=== PATIENT | female | born 1980 | race Caucasian/White ===

== ENCOUNTER 2019-03-07 16:48 | Outpatient (REF) | payer MEDICAID, SELFPAY | END 2019-03-07 17:08 | LOC: NCHCN 16:48 | PROVIDERS: PCP Internal Medicine; Visit Provider Nurse Practitioner Family | DX: R30.0 Dysuria (principal) | CPT/HCPCS: 87077; 87086; 87186 ==

== ENCOUNTER 2019-05-22 16:32 | Outpatient (REF) | payer MEDICAID, SELFPAY | END 2019-05-22 16:52 | LOC: NCHCN 16:32 | PROVIDERS: PCP Internal Medicine; Visit Provider Nurse Practitioner Family | DX: R30.0 Dysuria (principal) | CPT/HCPCS: 87077; 87086; 87186 ==

== ENCOUNTER 2019-05-25 21:37 | Emergency (ER) | payer MEDICAID, SELFPAY ==
[2019-05-25 21:47] VITALS: BP 126/80; PULSE 99; RESP 16; TEMP 36.2; O2SAT 97
[2019-05-25 22:01] LABS: Bilirubin Negative (Negative); Blood Trace-intact (Negative); Clarity Sl Cloudy (Clear); Glucose Negative (Negative); Ketones Trace mg/dL (Negative); Leukocyte Esterase Negative (Negative); Nitrite Negative (Negative); pH 5.5 (5-8)
[2019-05-25 22:17] LABS: Bacteria Many HPF (Negative); C & S Indicated? No/Sq. Contamination; Crystals Negative HPF (Negative); Epithelial Cells Many HPF (Negative); Mucus Negative (Negative); RBC 0-2 (0-2)
[2019-05-25] MEDS: Normal Saline Flush 10 ML SYR IVP (22:20)
[2019-05-25] MEDS: Ondansetron 4 MG/2 ML VIAL IVP (22:30)
[2019-05-25] MEDS: Normal Saline 1,000 ML 1000 ML IV (22:30)
[2019-05-25] MEDS: Ketorolac 15 MG/ML VIAL IVP (22:30)
[2019-05-25 22:36] LABS: Abs Immature Grans 0.02 k/cumm (0.0-0.09); Absolute Basophil Count 0.02 k/cumm (0.0-0.2); Absolute Eosinophil Count 0.46 k/cumm (0.0-0.7); Absolute Lymphocyte Count 0.89 k/cumm (1.2-3.4); Absolute Monocyte Count 0.62 k/cumm (0.11-0.7); Basophils % 0.2; Eosinophils % 4.6; HCT 37.4 % (36.0-46.0); HGB 12.7 g/dL (12.0-15.5); Immature Grans % 0.2; Lymphocytes % 8.9; Mean Corpuscular Hemoglobin 30.7 pg (27.0-33.0); Mean Corpuscular Volume 90.3 fL (80-95); Mean Platelet Volume 9.6 fL (8.0-11.0); Monocytes % 6.2; Neutrophils % 79.9; Platelet Count 244 x1000/uL (130-400); RBC 4.14 m/cumm (4.00-5.20); RBC Distribution Width 12.7 % (11.7-14.6); White Blood Cell Count 10.01 k/cumm (4.4-10.8)
--- NOTE | 2019-05-25 22:37 | ED.GENADUL_ITS ---
Discharge Plan Disposition Patient Disposition: HOME Condition: Good Discharge Details Chief Complaint: Urinary Clinical Impression: Pyelonephritis Primary Care Provider: Earl Nash ED Provider: Obie Abraham [place] Meds and New Rx's Prescriptions: New ciprofloxacin HCl 500 mg tablet 500 mg PO BID Qty: 20 RF: 0 ondansetron 4 mg tablet,disintegrating 4 mg PO Q8H PRN (Reason: nausea and vomiting) Qty: 10 RF: 0 Continued albuterol sulfate [ProAir HFA] 8.5 GM HFA aerosol inhaler 8.5 gm Inhalation PRN PRNRF: 0 gabapentin 100 MG capsule 100 mg PO DAILY RF: 0 acetaminophen [Mapap Extra Strength] 500 MG tablet 1,000 mg PO Q8H PRN PRNQty: 0 RF: 0 loratadine-pseudoephedrine [Claritin-D 24 Hour] 1 EACH tablet extended release 24 hr 1 ea PO PRN PRNRF: 0 ibuprofen 600 mg Tablet 600 mg PO Q6H PRNRF: 0 Discontinued nitrofurantoin monohyd/m-cryst 100 mg Capsule 100 mg PO BID RF: 0 Discharge Instructions Instructions: Ciprofloxacin (By mouth), Kidney Infection (ED) Additional Instructions: Please discontinue your Macrobid and start ciprofloxacin. Use Tylenol or Motrin as needed for pain and fever. Use ondansetron for nausea. Stay hydrated. Follow-up with primary care next week if not feeling better. Return to ED if you continue to have persistent high fever, worsening back pain, altered mental status, persistent vomiting, abdominal pain, other concerns. Referrals: Earl Nash MD [Primary Care Provider] - Medical Decision Making Urine culture from her PCPs office is growing E. coli which is pansensitive except to amoxicillin. She should be responding to the Macrobid but appears not to be. She is reporting fevers, back pain, continued urinary symptoms. The only thing that is cleared up is the hematuria. We will place an IV and get laboratory studies. Urine test is negative. Urinalysis sent. CT scan of the abdomen pelvis to evaluate for stone or obstruction ordered. Patient given Toradol, Zofran, ceftriaxone IV. Laboratory studies are okay. White count is normal. Kidney function is normal. Urinalysis tonight is contaminated but given her symptoms and history will not bothered to repeat. CT scan, noncontrast, shows evidence of bilateral reba nephric stranding likely consistent with infection. Patient does feel somewhat better after Toradol, fluids, Zofran. She has received a gram of ceftriaxone. I will discontinue her Macrobid and start her on Cipro. We discussed side effects including Achilles tendon rupture. She will use Tylenol and Motrin for pain and fever. She will receive prescription for Zofran if needed for nausea. Follow-up with primary care next week if not doing better. Return to ED over the weekend if persistent high fevers, worsening pain, vomiting, other concerns or problems. Lab Data Lab results reviewed: Yes I reviewed the patient's lab results. HPI General Mode of arrival: ambulatory . Date/Time Provider Initiated Documentation: 05/25/19 21:40 . Limitations to Documentation: no limitations . Information obtained by: patient . HPI Narrative: Patient presents to ED with continued urinary symptoms and now fevers and back pain. Patient reports developing urinary symptoms last week. She started to have hematuria on Wednesday. She was seen by primary care and started on Macrobid. She is not feeling better. The hematuria has cleaned up but she continues to have symptoms and now has back pain and fever which she did not have previously. She has some nausea but no vomiting. She has suprapubic discomfort. She has bilateral lower back pain. Related Data Home Medications Medication Instructions Recorded Confirmed albuterol sulfate [ProAir HFA] 8.5 gm INHALATION PRN PRN 05/09/17 05/25/19 acetaminophen [Mapap Extra 1,000 mg PO Q8H PRN PRN #0 05/11/17 05/25/19 Strength] gabapentin 100 mg PO DAILY cap 05/11/17 05/25/19 loratadine-pseudoephedrine 1 ea PO PRN PRN 04/14/18 05/25/19 [Claritin-D 24 Hour] ibuprofen 600 mg PO Q6H PRN 05/25/19 05/25/19 ciprofloxacin HCl 500 mg PO BID #20 tab 05/26/19 ondansetron 4 mg PO Q8H PRN #10 tab 05/26/19 Previous Rx's Medication Instructions Recorded acetaminophen [Mapap Extra 1,000 mg PO Q8H PRN PRN #0 05/11/17 Strength] gabapentin 100 mg PO DAILY cap 05/11/17 ciprofloxacin HCl 500 mg PO BID #20 tab 05/26/19 ondansetron 4 mg PO Q8H PRN #10 tab 05/26/19 Allergies Allergy/AdvReac Type Severity Reaction Status Date / Time Sulfa (Sulfonamide Allergy Intermediate RASH Unverified 05/25/19 21:49 Antibiotics) General Stated Complaint: Urinary JOSE: 3 Review of Systems Review of Systems 07/17 Review of Systems completed and is negative except as stated above in HPI (Systems reviewed: Const, Eyes, ENT, Resp, CV, GI, , MSK, Skin, Neuro) PFSH Medical History Anxiety Depression Migraine Pneumonia Surgical History section Ligation of fallopian tube (09/16/17) Social History Smoking/Tobacco Use Status: Former Tobacco Use Drug use: Occasionally Do you feel safe in your relationship?: Yes Exam Narrative Exam Narrative: Vitals: Afebrile here. Mild tachycardia, otherwise normal vitals. Const: Obese female in NAD. HEENT: NC/AT. Normal facial exam. Eyes: Normal conjunctiva and sclera. Neck: Supple. Trachea midline. Lungs: Normal respiratory effort. Lungs are clear. Cor: RRR without murmur/gallop. Good radial pulses. GI: Soft and non-distended. No guarding or rebound. Mild tender in the suprapubic area. Back: Bilateral CVAT. Neuro: A+O x 3. CN grossly in tact. Good strength and no focal deficit. Ext: No C/C/E. No deformity or tenderness. Skin: Warm and dry without rash. Course Vital Signs Temperature 97.2 F L 05/25/19 21:47 Pulse 99 H 05/25/19 21:47 Respiratory Rate 16 05/25/19 21:47 Blood Pressure 126/80 05/25/19 21:47 Pulse Oximetry 97 05/25/19 21:47 Temperature 97.2 F L 05/25/19 21:47 Temperature Source Skin 05/25/19 21:47 Pulse 99 H 05/25/19 21:47 Respiratory Rate 16 05/25/19 21:47 Blood Pressure 126/80 05/25/19 21:47 Blood Pressure Position Sitting 05/25/19 21:47 Pulse Oximetry 97 05/25/19 21:47 Oxygen Delivery Method Room Air 05/25/19 21:47 Oxygen Flow Rate 0 05/25/19 21:47 Pain Level 7 05/25/19 21:47 Lab/Test Results Lab/Test Results: Laboratory Tests Range/Units 05/25/19 21:53 Urine Color (Yellow) Yellow Urine Clarity (Clear) Sl cloudy Urine pH (5-8) 5.5 Ur Specific [place] (1.005-1.025) 1.020 Urine Protein (Negative) mg/dL 30 H Urine Ketones (Negative) mg/dL Trace H Urine Blood (Negative) Trace-intact H Urine Nitrite (Negative) Negative Urine Bilirubin (Negative) Negative Urine Urobilinogen (Up TO 0.2) EU/dL 1.0 H Ur Leukocyte Esterase (Negative) Negative Urine RBC (0-2) 0-2 Urine WBC (0-5) HPF 5-10 Ur Epithelial Cells (Negative) HPF Many Urine Crystals (Negative) HPF Negative Urine Bacteria (Negative) HPF Many Urine Mucus (Negative) Negative Ur Culture Indicated? No/sq. contamination Urine Glucose (Negative) mg/dL Negative
[2019-05-25 22:45] LABS: Anion Gap 10.5 mmol/L (3-11); BUN 12 mg/dL (7-18); CO2 26.5 mmol/L (21.0-32.0); Calcium 8.4 mg/dL (8.5-10.1); Chloride 106 mmol/L (98-107); Glucose 154 mg/dL (70-100); Potassium 3.5 mmol/L (3.5-5.1); Sodium 143 mmol/L (136-145)
[2019-05-25] MEDS: cefTRIAXone 1 GM/50 ML BAG IVPB (23:12)
--- NOTE | 2019-05-25 23:34 | DI.CT_ITS ---
SYMPTOM/DIAGNOSIS: FLANK PAIN, HEMATURIA RENAL COLIC CT: Routine examination. No priors. The visualized lung bases are clear. Lack of IV contrast does limit evaluation of the abdominal and pelvic organs. The unenhanced liver and spleen are unremarkable as are the gallbladder, pancreas and adrenal glands. The kidneys show no evidence of nephrolithiasis, ureterolithiasis or obstructive uropathy. There is mild stranding in the perinephric soft tissues bilaterally. The urinary bladder is intact. The reproductive organs are unremarkable. The bowel shows no evidence of obstruction or inflammation. There is a normal appendix present. The aorta is of normal caliber. No significant abdominal or pelvic adenopathy, ascites or pneumoperitoneum is seen. No acute osseous abnormality is identified. IMPRESSION: 1. No evidence of obstructive uropathy or nephrolithiasis. 2. Stranding in the perinephric soft tissues bilaterally. This may be chronic but the possibility of an inflammatory or infectious process cannot be excluded.
--- NOTE | 2019-05-26 00:03 | DI.VRAD_ITS ---
EXAM: CT Abdomen and Pelvis Without Contrast EXAM DATE/TIME: 05/25/2019 10:19 PM CLINICAL HISTORY: 38 years old, female; Abdominal pain; Other: Bilateral flank pain; Prior surgery; Surgery date: 6+ months; Surgery type: 2 cesarian, partial hysterectomy TECHNIQUE: Imaging protocol: Computed tomography images of the abdomen and pelvis without contrast. Radiation optimization: All CT scans at this facility use at least one of these dose optimization techniques: automated exposure control; mA and/or kV adjustment per patient size (includes targeted exams where dose is matched to clinical indication); or iterative reconstruction. COMPARISON: No relevant prior studies available. FINDINGS: Lungs: There is minimal bibasilar atelectasis. Mediastinum: Hiatal hernia. Liver: There is a diffuse decrease in hepatic parenchymal density, consistent with mild fatty infiltration. Gallbladder and bile ducts: Normal. No calcified stones. No ductal dilation. Pancreas: Normal. No ductal dilation. Spleen: Normal. No splenomegaly. Adrenals: Normal. No mass. Kidneys and ureters: There is mild perinephric stranding bilaterally. No hydronephrosis. Stomach and bowel: Normal. No obstruction. No mucosal thickening. Appendix: No evidence of appendicitis. Intraperitoneal space: Normal. No free air. No significant fluid collection. Vasculature: Normal. No abdominal aortic aneurysm. Lymph nodes: Normal. No enlarged lymph nodes. Bladder: Unremarkable as visualized. Reproductive: Retroflexed uterus. Bones/joints: No acute fracture. No dislocation. Soft tissues: Unremarkable. IMPRESSION: 1. Mild perinephric fat stranding could be due to scarring, third spacing of fluid, inflammatory process or infection. 2. Fatty liver. 3. Hiatal hernia. Dictated and Authenticated by: Alexis Patiño MD. Ordering:PORTIA Ragland MD
[2019-05-26 00:25] VITALS: BP 104/72; PULSE 94; RESP 18; TEMP 37.6; O2SAT 97
[2019-05-26] MEDS: Ciprofloxacin 500 MG TAB PO (00:30)
== END 2019-05-26 00:30 | disposition home or self-care (01) ==
PROVIDERS: Emergency Provider Emergency Medicine; PCP Internal Medicine
DX: N10 Acute pyelonephritis (principal)
CPT/HCPCS: 36415; 80048; 96361; 96365; 96375; 99284; 74176; 81003; 81015; 85025; J0696; J1885; J2405

== ENCOUNTER 2019-06-08 18:14 | Outpatient (REF) | payer MEDICAID, SELFPAY ==
--- NOTE | 2019-06-08 15:00 | PAPFT_PTH ---
PATIENT: Junie Denny LOC: [facility] U#:[id number] AGE/SX: 38/F ROOM: RE06/08/[address]: Emperatriz Motley : 1980 BED: DIS: 06/08/2019 SPEC #: [id number] RECD: 06/09/19 12:59 STATUS: RICHELLE REQ #: [id number] JUNIOR: 06/08/19 15:[address]: Emperatriz Motley DEPT: [facility] Cytology RECD BY: Christine Pretty ENTERED: 06/09/19 13:00 SP TYPE: PAPFT OTHR DR: Earl Nash Tissues: 1 - CX/ENDOCX FOR PAP SMEARS Procedures: PAP THIN PREP/[facility] Screening HPV DNA PROBE Comments: [id number]
== END 2019-06-08 18:34 ==
LOC: NCHCN 18:14
PROVIDERS: PCP Internal Medicine; Visit Provider Family Medicine
DX: Z12.4 Encounter for screening for malignant neoplasm of cervix (principal); Z11.51 Encounter for screening for human papillomavirus (HPV)
CPT/HCPCS: 88142; 87624

== ENCOUNTER 2019-06-15 00:56 | Outpatient (CLI) | payer MEDICAID, SELFPAY ==
--- NOTE | 2019-06-15 10:33 | DI.CT_ITS ---
SYMPTOM/DIAGNOSIS: MULTIPLE PULMONARY NODULES R91.[address], NONCONTRAST: 06/15 CT examination of the chest was performed without contrast administration to evaluate multiple intrapulmonary nodules seen on previous examinations including 02/18/18. On today's examination the largest nodule, 6 x 3 mm in diameter right middle lobe nodule, is unchanged in size and appearance. Multiple other 3 mm or smaller nodules of the right lung are unchanged in size and there is a new 3-4 mm in diameter nodule of the right lung base which is noncalcified. No pulmonary consolidation. No mediastinal mass or adenopathy. No tracheobronchial tree abnormality. No pleural effusion. Images obtained through the upper abdomen show unremarkable appearance of visualized portions of liver, spleen, pancreas, adrenals and kidneys. CONCLUSION: Predominantly stable multiple pulmonary nodules, the largest nodule is 6 mm in diameter and unchanged in the right middle lobe. New 4 mm in diameter intrapulmonary nodule. Follow up CT recommended in 6 months.
== END 2019-06-15 01:16 ==
PROVIDERS: PCP Internal Medicine; Visit Provider Family Medicine
DX: R91.8 Other nonspecific abnormal finding of lung field (principal)
CPT/HCPCS: 71250

== ENCOUNTER 2020-02-12 01:15 | Outpatient (CLI) | payer MEDICAID, SELFPAY ==
--- NOTE | 2020-02-12 14:05 | DI.CT_ITS ---
EXAM: CT CHEST WO CLINICAL HISTORY: F/U PULMONARY NODULES, R91.8, TECHNIQUE: COMPARISON: CT CT CHEST WO from 06/15/2019 FINDINGS: Noncontrast chest CT was performed. Recent chest CT June 2019 showed multiple noncalcified intr apulmonary nodules, the largest in the right middle lobe measuring about 6 x 3 millimeters in diamete r. This right middle lobe nodule is unchanged in size on the current examination. No new intrapulmo nary nodule identified. No pleural effusion. No mediastinal or hilar adenopathy. Tracheobronchial tree appears intact. No pleural effusion. Images obtained through the upper abdomen show unremarkable appearance of visualized portions of the liver, spleen, and pancreas. Adrenals appear normal bilaterally. IMPRESSION: Stable noncalcified pulmonary nodules since June 2019. Follow-up non-contrast chest CT recommen ded in 12 months.
== END 2020-02-12 01:35 ==
PROVIDERS: PCP Internal Medicine; Visit Provider Internal Medicine
DX: R91.8 Other nonspecific abnormal finding of lung field (principal)
CPT/HCPCS: 71250

== ENCOUNTER 2020-07-19 15:45 | Outpatient (REF) | payer MEDICAID, SELFPAY ==
[2020-07-19 20:59] LABS: Abs Immature Grans 0.02 10^3/uL (0.0-0.06); Absolute Basophil Count 0.06 10^3/uL (0.0-0.2); Absolute Lymphocyte Count 2.42 10^3/uL (1.2-3.4); Absolute Monocyte Count 0.55 10^3/uL (0.1-0.8); Basophils % 0.6; HCT 38.6 % (36.0-46.0); HGB 13.1 g/dL (11.2-15.7); Immature Grans % 0.2; Lymphocytes % 24.3; MCH 29.8 pg (27.0-33.0); MCHC 33.9 % (32.0-36.0); MCV 87.9 fL (80-95); Monocytes % 5.5; Neutrophils % 64.4; Nucleated RBC 0 %; Platelet Count 316 10^3/uL (130-400); RBC 4.39 10^6/uL (3.93-5.22); RDW 12.5 % (11.7-14.6); WBC 9.95 10^3/uL (4.4-10.8)
[2020-07-19 21:34] LABS: ALT 20 U/L (14-59); AST 9 U/L (15-37); Alkaline Phosphatase 80 U/L (46-116); Anion Gap 10.7 mmol/L (3-11); BUN 13 mg/dL (7-18); Bilirubin, Total 0.3 mg/dL (0.2-1.0); CO2 25.3 mmol/L (21.0-32.0); CREATININE 0.94 mg/dL (0.55-1.02); Calcium 9.3 mg/dL (8.5-10.1); Calculated LDL 137 mg/dL (<100); Chloride 104 mmol/L (98-107); Cholesterol 219 mg/dL (<200); Glucose 120 mg/dL (74-106); HDL Cholesterol 38 mg/dL (40-60); Sodium 140 mmol/L (136-145); Total Protein 7.3 g/dL (6.4-8.2); Triglyceride 220 mg/dL (<150)
[2020-07-19 21:38] LABS: Hemoglobin A1C 5.6 % (<5.7)
== END 2020-07-19 16:05 ==
LOC: NCHCN 15:45
PROVIDERS: PCP Internal Medicine; Visit Provider Family Medicine
DX: E78.00 Pure hypercholesterolemia, unspecified (principal); K21.9 Gastro-esophageal reflux disease without esophagitis; R53.83 Other fatigue
CPT/HCPCS: 80053; 80061; 83036; 85025

== ENCOUNTER 2020-08-19 16:53 | Outpatient (REF) | payer MEDICAID, SELFPAY ==
[2020-08-22 14:48] LABS: Patient Race White; SARS-CoV-2 RNA Undetected (Undetected); SARS-CoV-2 Specimen Source Nasal
== END 2020-08-19 17:13 ==
LOC: NCHCN 16:53
PROVIDERS: PCP Internal Medicine; Visit Provider Family Medicine
DX: Z20.828 Contact with and (suspected) exposure to other viral communicable diseases (principal)
CPT/HCPCS: U0003

== ENCOUNTER 2020-12-26 16:01 | Outpatient (REF) | payer MEDICAID, SELFPAY ==
[2020-12-27 14:49] LABS: COVID-19 RT-PCR UVMMC Result Negative (Negative)
== END 2020-12-26 16:02 | disposition home or self-care (01) ==
LOC: NCHCN 16:01
PROVIDERS: PCP Internal Medicine; Visit Provider Family Medicine
DX: Z20.822 Contact with and (suspected) exposure to COVID-19 (principal)
CPT/HCPCS: U0003

== ENCOUNTER 2021-02-19 09:07 | Outpatient (CLI) | payer MEDICAID, SELFPAY ==
[2021-02-20 15:56] LABS: COVID-19 RT-PCR UVMMC Result Negative (Negative)
== END 2021-02-19 09:08 | disposition home or self-care (01) ==
PROVIDERS: PCP Internal Medicine; Visit Provider Family Medicine
DX: Z20.822 Contact with and (suspected) exposure to COVID-19 (principal)
CPT/HCPCS: U0003

== ENCOUNTER 2021-07-31 01:00 | Outpatient (CLI) | payer MEDICAID, SELFPAY ==
--- NOTE | 2021-07-31 | DI.CT_ITS ---
Exam(s) CT CHEST WO EXAM: CT CHEST WO CLINICAL HISTORY: F/U MULTIPLE PULMONARY NODULES, R91.8. TECHNIQUE: Multi planar reconstructions were performed. CONTRAST MATERIAL: None COMPARISON: CT CT CHEST WO from 02/12/2020 FINDINGS: CHEST: LUNGS: A small noncalcified 3 millimeter nodule in the right upper lobe is unchanged. A pleural base d nodule measuring 5 millimeters in the lateral segment of the right middle lobe is also unchanged. There are no new right lung nodules. No pleural effusion. In the opposite-left lung there are no new significant findings. Some scarring in the anterior segme nt of the left upper lobe is unchanged. No pleural effusion MEDIASTINUM: There is no obvious hilar nor mediastinal adenopathy. Visualized thyroid unremarkable.No obvious axillary adenopathy CARDIAC: Heart size is normal. There is no pericardial effusion.Caliber of the thoracic aorta is wit hin normal limits. VISUALIZED UPPER ABDOMEN:No adrenal masses. OSSEOUS: No significant osseous lesions.. IMPRESSION: 1. Continued stable appearance of the previously described benign-appearing right lung nodules. 2. There are no new nodules nor pleural effusions. 3. There is no intrathoracic adenopathy. RADIATION DOSE DELIVERED: 658.71mGy.cm Total DLP DATA REPOSITORY: All CT scans at this facility are submitted to the National Radiology Data Registry (NRDR) Dose Index Registry (DIR) with the [employer] (ACR). RADIATION OPTIMIZATION: All CT scans at this facility use at least one of these dose optimization te chniques: automated exposure control; mA and/or kV adjustment per patient size (includes targeted exa ms where dose is matched to clinical indication); or iterative reconstruction.
== END 2021-07-31 01:20 ==
PROVIDERS: PCP Internal Medicine; Visit Provider Family Medicine
DX: R91.8 Other nonspecific abnormal finding of lung field (principal)
CPT/HCPCS: 71250

== ENCOUNTER 2021-12-11 02:43 | Outpatient (CLI) | payer MEDICAID, SELFPAY ==
[2021-12-11 10:46] LABS: ALT 25 U/L (14-59); AST 13 U/L (15-37); Albumin 3.8 g/dL (3.4-5.0); Alkaline Phosphatase 67 U/L (46-116); Anion Gap 9.4 mmol/L (3-11); BUN 15 mg/dL (7-18); Bilirubin, Total 0.6 mg/dL (0.2-1.0); CO2 26.6 mmol/L (21.0-32.0); CREATININE 0.9 mg/dL (0.55-1.02); Calcium 8.8 mg/dL (8.5-10.1); Calculated LDL 142 mg/dL (<100); Chloride 102 mmol/L (98-107); Cholesterol 224 mg/dL (<200); Glucose 110 mg/dL (74-106); HDL Cholesterol 56 mg/dL (40-60); Potassium 4.5 mmol/L (3.5-5.1); Sodium 138 mmol/L (136-145); Total Protein 6.9 g/dL (6.4-8.2); Triglyceride 132 mg/dL (<150)
[2021-12-11 11:12] LABS: Vitamin D 25 Total 40.5 ng/mL (30-100)
== END 2021-12-11 02:44 | disposition home or self-care (01) ==
LOC: LBO 02:43
PROVIDERS: PCP Internal Medicine; Visit Provider Family Medicine
DX: E78.00 Pure hypercholesterolemia, unspecified (principal); R53.83 Other fatigue; K21.9 Gastro-esophageal reflux disease without esophagitis; E55.9 Vitamin D deficiency, unspecified
CPT/HCPCS: 36415; 80053; 80061; 82306

== ENCOUNTER 2023-07-28 15:41 | Outpatient (REF) | payer MEDICAID, SELFPAY | END 2023-07-28 15:42 | disposition home or self-care (01) | LOC: NCHCN 15:41 | PROVIDERS: PCP Internal Medicine; Visit Provider Nurse Practitioner Family | DX: N89.8 Other specified noninflammatory disorders of vagina (principal) | CPT/HCPCS: 87480; 87510; 87660 ==

== ENCOUNTER → 2023-08-16 00:18 | Outpatient (CLI) | payer MEDICAID, SELFPAY ==
--- NOTE | 2023-08-16 | DI.CT_ITS ---
Exam(s) CT CHEST WO EXAM: CT CHEST WO CLINICAL HISTORY: MULTIPLE PULMONARY NODULES, R91.8 TECHNIQUE: Imaging Protocol: Axial computed tomography images with coronal and sagittal reformatted images were created and reviewed CONTRAST MATERIAL: Intravenous: Omnipaque 350 Contrast volume:structured data ml. COMPARISON: CT CHEST FOR PULMONARY EMBOLUS from 05/09/2017 CT CHEST WITH CONTRAST from 08/25/[address] CHEST WO from 07/31/2021 FINDINGS: Pulmonary parenchyma: No consolidation. No dominant measurable mass. Stable tiny bilateral pulmonary nodules. Two largest nodules are in the right middle lobe, largest measuring 6 x 3 millimeters reba pherally. Other nodules measure 3 millimeters or less. No new or suspicious findings. Tracheobronchial tree: No bronchiectasis or mucous plugging. Mediastinum and Kimberly: No dominant adenopathy or fluid collection. Pleura: No effusion. No pneumothorax. Heart: The heart is not dilated. No coronary artery calcifications are seen. Aorta: Thoracic aorta non-dilated. Mild atherosclerotic changes. Upper abdomen: Unremarkable. Bones: Degenerative changes in the spine. Soft tissues: Unremarkable. IMPRESSION: Stable tiny bilateral pulmonary nodules. If the patient is at high risk for lung cancer follow-up lo w-dose chest CT could be considered in 1 year. Otherwise no follow-up recommended. RADIATION DOSE DELIVERED: Total DLP DATA REPOSITORY: All CT scans at this facility are submitted to the National Radiology Data Registry (NRDR) Dose Index Registry (DIR) with the [employer] (ACR). RADIATION OPTIMIZATION: All CT scans at this facility use at least one of these dose optimization te chniques: automated exposure control; mA and/or kV adjustment per patient size (includes targeted exa ms where dose is matched to clinical indication); or iterative reconstruction.
== END ==
PROVIDERS: PCP Internal Medicine; Visit Provider Family Medicine
DX: R91.8 Other nonspecific abnormal finding of lung field (principal)
CPT/HCPCS: 71250

== ENCOUNTER 2023-08-16 13:15 | Outpatient (REF) | payer MEDICAID, SELFPAY | END 2023-08-16 13:16 | disposition home or self-care (01) | LOC: NCHCN 13:15 | PROVIDERS: PCP Internal Medicine; Visit Provider Family Medicine | DX: R32 Unspecified urinary incontinence (principal); R82.998 Other abnormal findings in urine | CPT/HCPCS: 87086 ==

== ENCOUNTER 2023-08-23 18:03 | Outpatient (REF) | payer MEDICAID, SELFPAY ==
[2023-08-23 21:58] LABS: ALT 20 U/L (14-59); AST 11 U/L (15-37); Albumin 3.9 g/dL (3.4-5.0); Alkaline Phosphatase 67 U/L (46-116); BUN 18 mg/dL (7-18); Bilirubin, Total 0.4 mg/dL (0.2-1.0); Calcium 9.7 mg/dL (8.5-10.1); Chloride 107 mmol/L (98-107); Estimated GFR 71.69 (mL/min/1.73m2); Glucose 93 mg/dL (74-106); Potassium 4.7 mmol/L (3.5-5.1); Sodium 137 mmol/L (136-145)
[2023-08-23 22:19] LABS: Vitamin D 25 Total 31.2 ng/mL (30-100)
== END 2023-08-23 18:04 | disposition home or self-care (01) ==
LOC: NCHCN 18:03
PROVIDERS: PCP Internal Medicine; Visit Provider Family Medicine
DX: E78.00 Pure hypercholesterolemia, unspecified (principal); E55.9 Vitamin D deficiency, unspecified
CPT/HCPCS: 80053; 82306

== ENCOUNTER 2024-10-09 21:12 | Outpatient (REF) | payer MEDICAID, SELFPAY ==
--- OUTSIDE RECORDS SUMMARY | 2024-10-09 21:13 | XMS_ITS | Referral Summary ---
Author Organization [facility] Address [address] [place] [address] Care Team Providers Care Mixed Crop And Livestock Farmer Name Role Phone Earl Nash MD Primary Care Provider [phone] Social History Tobacco Use Types Packs/Day Years Used Date Smoking Tobacco: Never Assessed Interpersonal Safety Answer Date Record ed Physically Hurt Never 05/05/2020 Verbally Threaten Not on file 05/05/2020 Comments Unknown Sex and Gender Information Value Date Recorded Sex Assigned at Not on file Legal Sex Female 18:40 EST Gender Identity Not on file Sexual Orientation Not on file Plan of Treatment Not on file Insurance * Guarantor: Junie Denny Account Type Relation to Patient Date of Phone Billing Address Personal/Family Self 1980 [phone] (Work) [address] [place] [address] [address] [place] [address] MEDICA[place] Care Teams Mixed Crop And Livestock Farmer Relationship Specialty Start Date End Date Earl Nash MD [address] [place] [address] [facility] - General 01/25/13
--- OUTSIDE RECORDS SUMMARY | 2024-10-09 21:13 | XMS_ITS | Encounter Summary ---
Author Organization [facility] Address [address] [place] [address] Care Team Providers Care Waiter/Waitress Buffet Name Role Phone Earl Nash MD Primary Care Provider [phone] Encounter Details Date Type Department Care Team (Late st Contact Info) Description 12/26/2020 Lab Requisition [facility] Pathology & Laboratory Medicine - [address] [address] Outr Resulting Lab, Provider Social History Tobacco Use Types Packs/Day Years Used Date Smoking Tobacco: Never Assessed Interpersonal Safety Answer Date Record ed Physically Hurt Never 05/05/2020 Verbally Threaten Not on file 05/05/2020 Comments Unknown Sex and Gender Information Value Date Recorded Sex Assigned at Not on file Legal Sex Female 18:40 EST Gender Identity Not on file Sexual Orientation Not on file documented as of this encounter Plan of Treatment Not on file documented as of this encounter Procedures Procedure Name Priority Date/Time Associated Diagnosis Comments ZZCOVID-19 TEST [facility] PCR Today 12/26/2020 10:40 EDT COVID-19 TESTING Routine 12/26/2020 10:4 0 EDT documented in this encounter Results * COVID-19 TEST [facility] PCR (12/26/2020 10:40 EDT) Swab ENTIRE NASOPHARYNX / Unknown 12/26/2020 10:40 EDT 12/26/2020 20:42 EDT us Provider Outr Resulting Lab MICROBIOLOGY - GENER AL ORDERABLES Final Result [facility] [address] [place] [address] * COVID-19 TESTING (12/26/2020 10:40 EDT) COVID-19 rt-PCR Result Negative Negative 12/27/2020 14:44 EDT [facility] Comment: This test has not been FDA cleared or approved. This test has been authorized by FDA under an EUA for use by authorized laboratories. This test has been authorized only for detection of nucleic acid from 2019-nCoV, not for any other viruses or pathogens. This test is only authorized for the duration of the declaration that circumstances exist justifying the authorization of emergency use of in vitro diagnostic tests for detection and/or diagnosis of 2019-nCoV under section 564(b)(1) of Act, 21 U.S.C ?? 360bbb-3(b) (1), unless the authorization is terminated or revoked sooner. Negative results do not preclude 2019-nCoV infection and should not be used as the sole basis for treatment or other patient management decisions. Negative results must be combined with clinical observations, patient history, and epidemiological information. This test was developed and its performance characteristics determined by [facility]. It has not been cleared or approved by the US Food and Drug Administration. FDA does not require this test to go through premarket FDA review. This test is used for clinical purposes. It should not be regarded as investigational or for research. This laboratory is certified under the Clinical Laboratory Improvement Amendments (CLIA) as qualified to perform high complexity clinical laboratory testing. This test is based on the [facility] COVID-19 Emergency Use Authorization (EUA) assay, with minor modification as defined by the FDA Performed on the [employer]ty[employer] 7 Pro RT-PCR System. Performing Lab [facility] Lab 12/27/2020 14:44 EDT [facility] Swab 12/26/2020 10:4 0 EDT 12/26/2020 20:42 EDT Provider Outr Resulting Lab MICROBIOLOGY - GENER AL ORDERABLES Final Result [facility] [address] [place] [address] documented in this encounter Visit Diagnoses Not on filedocumented in this encounter Care Teams Waiter/Waitress Buffet Relationship Specialty Start Date End Date Earl Nash MD [address] [place] [address] PCP - General 01/25/13 documented as of this encounter
--- OUTSIDE RECORDS SUMMARY | 2024-10-09 21:13 | XMS_ITS | Clinical Summary ---
Author Organization [facility] Address [address] [place] [address] Care Team Providers Care Shield Cleaner Name Role Phone Earl Nash MD Primary Care Provider [phone] Social History Tobacco Use Types Packs/Day Years Used Date Smoking Tobacco: Never Assessed Interpersonal Safety Answer Date Record ed Physically Hurt Never 05/05/2020 Verbally Threaten Not on file 05/05/2020 Comments Unknown Sex and Gender Information Value Date Recorded Sex Assigned at Not on file Legal Sex Female 18:40 EST Gender Identity Not on file Sexual Orientation Not on file Plan of Treatment Health Maintenance Due Date Last Done Comments Hepatitis C Screen 1980 Hepatitis B Vaccine (1 of 3 - 19+ 3-dose series) 11/17 COVID-19 Vaccine ( season) 2024 Insurance * Guarantor: Junie Denny Account Type Relation to Patient Date of Phone Billing Address Personal/Family Self 1980 [phone] (Work) [address] [place] [address] [address] [place] [address] [place] Care Teams Shield Cleaner Relationship Specialty Start Date End Date Earl Nash MD [address] [place] [id number] PCP - General 01/25/13
--- OUTSIDE RECORDS SUMMARY | 2024-10-09 21:13 | XMS_ITS | Continuity of Care Document ---
Author Organization [facility] Ambulatory Clinics Address [address] [place] [address] Care Team Providers Care Directory Clerk Name Role Phone GABRIELE WOLFE Primary Care Physician Encounter [facility] NBR [id number] Date(s): 09/20/23 - 09/20/23 [facility] Ambulatory [facility] [address] [place] [address]- Encounter Diagnosis Urinary incontinence(Discharge Diagnosis) - 09/20/23 Discharge Disposition: Home or Self Care Attending Physician: Michelle Dunaway APRN Referring Physician: GABRIELE WOLFE Allergies, Adverse Reactions, Alerts Substance Reaction Severity Status sulfa drugs Rash Unknown Active Assessment and Plan Future Appointments Medications busPIRone 10 mg oral tablet 10 mg = 1 tab, Oral, 1 tab at bedtime, 0 Refill(s) Start Date: 09/16/23 Status: Ordered gabapentin 100 mg oral capsule TAKE ONE CAPSULE BY MOUTH AT BEDTIME Start Date: 09/16/23 Status: Ordered topiramate 50 mg oral tablet TAKE ONE TABLET BY MOUTH EVERY DAY Start Date: 09/16/23 Status: Ordered traZODone 50 mg oral tablet TAKE 1 TO 3 TABLETS BY MOUTH AT BEDTIME NEEDED Start Date: 09/16/23 Status: Ordered Problem List Condition Confirmation Course Effective Dates Status Health Status Informant Allergic rhinitis Confirmed Active Anxiety Confirmed Active GERD (gastroesophageal reflux disease) Confirmed Active Left hip pain Confirmed Active Hypercholesterolemia Confirmed Active Insomnia Confirmed Active Migraine with aura Confirmed Active Obesity Confirmed Active Urinary incontinence Confirmed Active Vitamin D deficiency Confirmed Active Procedures Procedure Date Related Diagnosis Body Site Status Tubal ligation 09/15/17 Completed section 1 Comple leonidas 1X2 Results Laboratory List Name Date .Urinalysis POCT 09/20/23 Most recent to oldest [Reference Range]: 1 Method of Collect POC Clean Catch *NA* (09/20/23 10:17 AM) Specific [place], Ur POC 1.015 *NA* (09/20/23 10:17 AM) Specimen Color POC [Yellow] Yellow (09/20/23 10:17 AM) Glucose, Urine POC Negative mg/dL *NA* (09/20/23 10:17 AM) Bilirubin, Urine POC [Negative] Small *ABN* (09/20/23 10:17 AM) Ketones, Urine POC [Negative mg/dL] Trac e mg/dL *ABN* (09/20/23 10:17 AM) Blood, Urine POC [Negative] Negative (09/20/23 10:17 AM) pH, Urine POC 8.5 *NA* (09/20/23 10: AM) Protein, Urine POC [Negative mg/dL] 30 m g/dL *ABN* (09/20/23 10: AM) Urobilinogen, Urine POC [0.2] 2.0 *ABN* (09/20/23 10: AM) Nitrite, Urine POC [Negative] Negative (09/20/23 10: AM) Leuk Esterase, Urine POC [Negative] Nega tive (09/20/23 10:17 AM) Clarity, Urine POC [Clear] Clear (09/20/23 10:17 AM) Vital Signs Most recent to oldest [Reference Range]: 1 Temperature Temporal Artery [36-38 Deg C ] 36.7 Deg C (09/20/23 10:10 AM) Peripheral Pulse Rate [60-100 bpm] 87 bp m (09/20/23 10:10 AM) Blood Pressure [90-140/60-90 mmHg] 98/62 mmHg (09/20/23 10:10 AM) Mean Arterial Pressure, Cuff [70-110 mmH g] 74 mmHg (09/20/23 10:10 AM) Weight 96.16 kg (09/20/23 10:10 AM) Weight Measured (lbs) 211.996 lb (09/20/23 10:10 AM) Weight Dosing 96.160 kg (09/20/23 10:10 AM) [place] Body Weight Calculated 52.4 kg (09/20/23 10:10 AM) Height 160.02 cm (09/20/23 10:10 AM) Height/Length Measured (inches) 63 inch (09/20/23 10:10 AM) BSA Measured 2.07 m2 (09/20/23 10:10 AM) Body Mass Index 37.55 kg/m2 (09/20/23 10:10 AM) Social History Social History Type Response Tobacco Former tobacco user Tobacco Use:. Sex Physician Outpatient Note * Michelle Dunaway APRN: PERFORM Event Display: Office Clinic Note Physician Authored Date: [id number] LUIS EDUARDO ADAIR :1980 Age:42 years Sex:Female Visit Date:09/20/2023 Primary Care Physician: GABRIELE WOLFE Chief Complaint urinary incontinence History of Present Illness Ms. Adair is a pleasant 42 y.o. lady who presents to the clinic today for evaluation of urinary incontinence. She reports BRANDON without physical activity. She is managing symptoms with pads she is changing 2-3 x a day. ?? She describes a urinary stream that is strong and steady without intermittency. Frequency >2h intervals during the day. Nocturia 0x. She denies urgency or dysuria. She reports BRANDON throughout the day and night. She notices it with walking or sometimes just standing. She does not??notice it withpositional changes such as from sitting to standing. ??At times, she is unaware of the incontinence. Interestingly, she denies losing urine with cough or sneeze. She feels she voids to completion, PVR was 7 mL today. ?? She delivered two children via . ?? Urinalysis is positive for small bilirubin, trace ketones, protein, and urobilinogen. ?? She drinks a couple cups of caffeinated coffee during the day. Currently drinking approximately 40 oz of water daily. ?? She does not smoke cigarettes or drink any alcohol. ?? She denies a history of UTI, ??urolithiasis, or?? gross hematuria. ?? She has never been told she had pelvic organ prolapse. She does not feel a bulge when she wipes. PCP recently performed pelvic exam with unremarkable findings. ?? Bladder Scan PVR Entered On: ??09/20/2023 10:15 EST?Performed On: ??09/20/2023 10:13 EST by Isabel Pena? Bladder Scan PVR?? Void Prior to Bladder Scan : ?Yes?? Bladder Distention : ?Absent?? Patient States Need to Void : ?No?? Position During Bladder Scan : ?Supine?? Bladder Scan Volume : ?7 mL?? Jean Isabel - 09/20/2023 10:13 EST? Result type:?Bladder Scan PVR Amb - Text Result date:?September 20, 2023 10:13 EST Result status:?Auth (Verified) Result title:?Bladder Scan PVR Performed by:?Isabel Pena on September 20, 2023 10:13 EST Verified by:?Isabel Pena on September 20, 2023 10:13 EST Encounter info:?[id number], [id number], Clinic, 09/20/2023 -?? [1] Review of Systems Constitutional:?Positive for?? insomnia,?No??chills,??fevers,??No??sweats Eye:?No??recent visual problems ENT:?Positive for??allergic rhinitis,?No??nasal congestion,?No??sore throat Respiratory:?No??shortness of breath,?No??cough Cardiovascular:?Positive for??Hyperlipidemia, ??No??palpitations,??chest pain,??No??syncope Gastrointestinal:?Positive for??GERD,?No??vomiting,??nausea,??No??diarrhea Genitourinary:?Positive for?? BRANDON Fabiano/Lymph:?No??bruising tendency,?No??swollen lymph glands Endocrine:?No??excessive thirst,??No??excessive hunger Musculoskeletal:??No??back pain,??No??neck pain,??Positive for??joint pain,??No??muscle pain,??No??decreased range of motion Integumentary:?No??rash,?No??pruritus,?No??abrasions Neurologic: Alert & oriented X 4, migraine with aura Psychiatric:?Positive for??anxiety,?No??depression Physical Exam Vitals & Measurements T:??36.7?C ??(Temporal Artery)?? HR:??87??(Peripheral)?? BP:??98/62?? SpO2:??96%?? HT:??160.02??cm?? WT:??96.16??kg?? BMI:??37.55?? BSA:??2.07?? GENERAL APPEARANCE:??alert and oriented in NAD; appropriate with good affect.?? NEURO:??grossly intact.?? HEENT:??NCAT; EOMI.?? NECK:??supple.?? CHEST:??symmetric excursions.?? ABDOMEN:??deferred. MUSCULOSKELETAL:??good gait and station.?? EXTREMITIES:??no c/c/e??.?? BACK/SPINE:??deferred. :??Vulva: normal external female genitalia, no masses, no atrophy. Bladder: urethra normal, mild urethrovesical relaxation, no bladder prolapse. Perineum/Anus: no skin changes or hemorrhoids Assessment/Plan 1.??Urinary incontinence??R32 1. She is scheduled for UDS with Dr. Oviedo on 11/29/23. Next interventions will be based on resultsof this study. 2. She will complete a voiding diary and bring it with her at the time of UDS. Ms. Adair is a pleasant 42 y.o. lady with BRANDON. She is scheduled for UDS to help guide future interventions. Thank you for the opportunity to participate in??your patient's care. Problem List/Past Medical History Ongoing Allergic rhinitis Anxiety GERD (gastroesophageal reflux disease) Hypercholesterolemia Insomnia Left hip pain Migraine with aura Obesity Urinary incontinence Vitamin D deficiency Historical No qualifying data Procedure/Surgical History ???Tubal ligation (09/16/2017)??? section Medications busPIRone 10 mg oral tablet, 10 mg= 1 tab, Oral gabapentin 100 mg oral capsule topiramate 50 mg oral tablet traZODone 50 mg oral tablet Allergies sulfa drugs??(Rash) Social History Electronic Cigarette/Vaping Electronic Cigarette Use: Never. Tobacco Former tobacco user Tobacco Use:. Family History Cancer: Mother. Lab Results Test Name Test Result Date/Time Method of Collect POC Clean Catch 09/20/2023 10:17 EST Specimen Color POC Yellow 09/20/2023 10:17 EST Clarity, Urine POC Clear 09/20/2023 10:17 EST Glucose, Urine POC Negative 09/20/2023 10:17 EST Bilirubin, Urine POC Small 09/20/2023 10:17 EST Ketones, Urine POC Trace 09/20/2023 10:17 EST Specific [place], Ur POC 1.015 09/20/2023 10:17 EST pH, Urine POC 8.5 09/20/2023 10:17 EST Protein, Urine POC 30 09/20/2023 10:17 EST Urobilinogen, Urine POC 2.0 09/20/2023 10:17 EST Nitrite, Urine POC Negative 09/20/2023 10:17 EST Blood, Urine POC Negative 09/20/2023 10:17 EST Leuk Esterase, Urine POC Negative 09/20/2023 10:17 EST [1]??Bladder Scan PVR; Isabel Pena 09/20/2023 10:13 EST Electronically Signed on 09/20/23 12:12 PM Michelle Dunaway APRN Patient Care team information Care Team Personnel Name: GABRIELE WOLFE Position: No Access Member Role: Primary Care Physician Address: Address: [facility] [address] [place] [address]- [place]
--- OUTSIDE RECORDS SUMMARY | 2024-10-09 21:13 | XMS_ITS | Encounter Summary ---
Author Organization [facility] Address [address] [place] [address] Care Team Providers Care Craft Center Director Name Role Phone Earl Nash MD Primary Care Provider [phone] Encounter Details Date Type Department Care Team (Late st Contact Info) Description 02/19/2021 Lab Requisition [facility] Pathology & Laboratory Medicine - [address] [address] Outr Resulting Lab, Provider Social History Tobacco [...] Comments ZZCOVID-19 TEST [facility] PCR Today 02/19/2021 9:58 EDT COVID-19 TESTING Routine 02/19/2021 9:58 EDT documented in this encounter Results * COVID-19 TEST [facility] PCR (02/19/2021 9:58 EDT) Swab ENTIRE NASOPHARYNX / Unknown 02/19/2021 9:58 EDT 02/19/2021 15:32 EDT us Provider Outr Resulting Lab MICROBIOLOGY - GENER AL ORDERABLES Final Result Performing Organization Address City/State/[facility] Co de Phone Number [facility] [address] [place] [address] * COVID-19 TESTING (02/19/2021 9:58 EDT) COVID-19 rt-PCR Result Negative Negative 02/20/2021 15:[address] [facility] Comment: This test has not [...] developed and its performance characteristics determined by [facility]. It has not been cleared or approved [...] testing. This test is based on the [facility] COVID-19 Emergency Use Authorization (EUA) assay, with minor modification as defined by the FDA Performed on the [employer] 7 Flex RT-PCR System. Performing Lab [facility] 02/20/2021 15:[address] [facility] Swab 02/19/2021 9:58 EDT 02/19/2021 15:32 EDT Provider Outr Resulting Lab MICROBIOLOGY - GENER AL ORDERABLES Final Result [facility] [address] [place] [address] documented in this encounter Visit Diagnoses Not on filedocumented in this encounter Care Teams Craft Center Director Relationship Specialty Start Date End Date Earl Nash MD [address] [place] [address] PCP - General 01/25/13 documented as of this encounter
--- OUTSIDE RECORDS SUMMARY | 2024-10-09 21:13 | XMS_ITS | Encounter Summary ---
Author Organization [facility] Address [address] [place] [address] Care Team Providers Care Machine Baster Name Role Phone Earl Nash MD Primary Care Provider Encounter Details Date Type Department Care Team (Late st Contact Info) Description 06/08/[address] [facility] [phone] Gabriele Motley MD [address] [place] [phone] Social History Tobacco Use Types Packs/Day Years Used Date Smoking Tobacco: Never Assessed Comments Unknown Sex and Gender Information Value Date Recorded Sex Assigned at Not on file Legal Sex Female 18:40 EST Gender Identity Not on file Sexual Orientation Not on file documented as of this encounter Plan of Treatment Not on file documented as of this encounter Procedures Procedure Name Priority Date/Time Associated Diagnosis Comments PAP TEST- RESULT ONLY Routine 06/08/2019 0:00 EDT documented in this encounter Results * PAP TEST- RESULT ONLY (06/08/2019 0:00 EDT) Pathology Report: CYTOPATHOLOGY REPORT Reports generated via electronic interface contain original data; however they are lacking the format of the original report. Caution should be taken when reading/interpreti ng unformatted reports. Name: ? LUIS EDUARDO ADAIR ? Accession #: ? [id number] ? : ? 1980 (Age: 38) ??F ?Collect Date: ? 06/08/2019 ? Location: ? [facility] ? Receive Date: ? 06/12/2019 ? Provider: GABRIELE MOTLEY MD Copy to: ? Final Report SPECIMEN ADEQUACY ? Satisfactory for Evaluation - transformation zone component absent GENERAL CATEGORIZATION ? Negative for Intraepithelial Lesion or Malignancy ?? Other: Additional clinical information: Z00.00 Z12.4 Z01.419 Specimen/Source: ??Pap Test, Cervix, ThinPrep Imaging System with manual evaluation Document reviewed and electronically signed by: ? SAIDA Mosqueda(ASCP) ? Report ??Date: 06/15/2019 13:51 HPV with Pap Test ? Date Ordered: ? 06/15/2019 ? Status: ?? Signed Out ?Date Complete: ? 06/16/2019 ? By: ??System Interface ? Date Reported: ? 06/16/2019 ? Interpretation RESULT: Negative for HPV. No E6 or E7 mRNA is detected from HPV types 16,18,31,33,35, 39,45,51,52,56,58, 59,66, and 68 by leather novelty parts cutter mediated amplification. Comments Document reviewed and electronically signed by: ? System Interface ? Report date: 06/16/2019 By the signature above, the attending physician certifies that he/she has personally conducted a gross and/or microscopic examination of the described specimens and rendered or confirmed the above diagnosis. End of Report [facility] 06/08/2019 06/12/2019 us Gabriele Motley MD PATHOLOGY ORDERABLES Final Res ult [facility] [address] [place] [address] documented in this encounter Visit Diagnoses Not on filedocumented in this encounter Care Teams Machine Baster Relationship Specialty Start Date End Date Earl Nash MD [address] [place] [id number] PCP - General 01/25/13 documented as of this encounter
--- OUTSIDE RECORDS SUMMARY | 2024-10-09 21:14 | XMS_ITS | Encounter Summary ---
Author Organization [facility] Address [address] [place] [address] Care Team Providers Care Busgirl Name Role Phone Unavailable Primary Care Provider Unavailabl e Encounter Details Date Type Department Care Team (Late st Contact Info) Description 02/04/2009 Orders Only [facility] Laboratory Services - [facility] ([facility]) [address] [place], [place] [address] Rosemary Tran MD [address] [place] [address] Social History Tobacco Use Types Packs/Day Years [...] Procedure Name Priority Date/Time Associated Diagnosis Comments CYTOPATHOLOGY Routine 02/04/2009 0:00 EDT documented in this encounter Results * CYTOPATHOLOGY (02/04/2009 0:00 EDT) Pathology Report: CYTOPATHOLOGY REPORT ? Reports generated via electronic interface contain original data; ? however they are lacking the format of the original report. ? Caution should be taken when reading/interpreti ng unformatted reports. ? Name: ? LUIS EDUARDO ADAIR ? Accession #: ? [id number] ? : ? 1980 (Age: 28) ??F ?Collect Date: ? 02/04/2009 ? Location: ? [facility] ? Receive Date: ? 02/06/2009 ? Provider: ?ROSEMARY TRAN MD ? Copy to: ? Specimen/Source: ?Pap Test, Vagina/Cervix/Endo cervix, ThinPrep Imaging ? System with manual evaluation ? Last Menstrual Period: ? 3/8/09 ? Menstrual/Pregnanc y Status: ? Other: ? Additional clinical information: benign pap hx ? SPECIMEN ADEQUACY ? Satisfactory for Evaluation ? - transformation zone component present ? GENERAL CATEGORIZATION ? Negative for Intraepithelial Lesion or Malignancy ? Document reviewed and electronically signed by: ? Meagan León, CT(ASCP) ? Report Date: ??02/07/2009 14:20 ? End of Report ? [facility] 02/04/2009 02/06/2009 us Rosemary Tran MD PATHOLOGY ORDERABLES Final Resu lt [facility] [address] [place] [address] documented in this encounter Visit Diagnoses Not on filedocumented in this encounter
--- OUTSIDE RECORDS SUMMARY | 2024-10-09 21:14 | XMS_ITS | Encounter Summary ---
Author Organization [facility] Address [address] [place] [address] Care Team Providers Care Advanced Analytics Associate Name Role Phone Unavailable Primary Care Provider Unavailabl e Encounter Details Date Type Department Care Team (Late st Contact Info) Description 10/18/2009 Orders Only [facility] Laboratory Services - [facility] ([facility]) [address] [place], [place] [phone] Rosemary Tran MD [address] [place] [address] Social History Tobacco Use Types Packs/Day Years [...] Priority Date/Time Associated Diagnosis Comments CYTOPATHOLOGY Routine 10/18/2009 0:00 EST documented in this encounter Results * CYTOPATHOLOGY (10/18/2009 0:00 EST) Pathology Report: CYTOPATHOLOGY REPORT ? Reports generated via electronic interface contain original data; ? however they are lacking the format of the original report. ? Caution should be taken when reading/interpreti ng unformatted reports. ? Name: ? LUIS EDUARDO ADAIR ? Accession #: ? [id number] ? : ? 1980 (Age: 28) ??F ?Collect Date: ? 10/18/2009 ? Location: ? [facility] ? Receive Date: ? 10/22/2009 ? Provider: ?ROSEMARY TRAN MD ? Copy to: ? Specimen/Source: ?Pap Test, Vagina/Cervix/Endo cervix, ThinPrep Imaging ? System with manual evaluation ? Last Menstrual Period: ? Menstrual/Pregnanc y Status: ? Post ? Other: ? Additional clinical information: Benign Pap Hx. ? SPECIMEN ADEQUACY ? Satisfactory for Evaluation ? - transformation zone component present ? GENERAL CATEGORIZATION ? Negative for Intraepithelial Lesion or Malignancy ? Document reviewed and electronically signed by: ? Susy Gooden, SCT(ASCP) ? Report Date: ??10/23/2009 11:49 ? End of Report ? [facility] 10/18/2009 10/22/2009 us Rsoemary Tran MD PATHOLOGY ORDERABLES Final Resu lt [facility] [address] [place] [address] documented in this encounter Visit Diagnoses Not on filedocumented in this encounter
--- OUTSIDE RECORDS SUMMARY | 2024-10-09 21:14 | XMS_ITS | Encounter Summary ---
Author Organization [facility] Address [address] [place] [address] Care Team Providers Care Machine Clothing Replacer Name Role Phone Unavailable Primary Care Provider Unavailabl e Encounter Details Date Type Department Care Team (Late st Contact Info) Description 04/21/2012 Results Only [facility] Laboratory Services - [facility] ([facility]) [address] [place], [place] [address] Annie Hein, [facility] [address] [place] [phone] Social History Tobacco Use Types Packs/Day Years [...] Diagnosis Comments PAP TEST- RESULT ONLY Routine 04/21/2012 0:00 EDT documented in this encounter Results * PAP TEST- RESULT ONLY (04/21/2012 0:00 EDT) Pathology Report: CYTOPATHOLOGY REPORT Reports generated via electronic interface contain original data; however they are lacking the format of the original report. Caution should be taken when reading/interpreti ng unformatted reports. Name: ? LUIS EDUARDO ADAIR ? Accession #: ? [id number] : ? 1980 (Age: 31) ??F ?Collect Date: ? 04/21/2012 Location: ? [facility] ? Receive Date: ? 04/22/2012 Provider: ?ANNIE HEIN FINISHING DEPARTMENT SUPERVISOR Copy to: ?BENNIE SHARP MD ? Specimen/Source: ?Pap Test, Cervix/Endocervix, ThinPrep Imaging System with manual evaluation Last Menstrual Period: ? Hormonal/Contracep tive Status: ? Intrauterine device: mirena ? SPECIMEN ADEQUACY ? Satisfactory for Evaluation - transformation zone component absent GENERAL CATEGORIZATION ? Negative for Intraepithelial Lesion or Malignancy ? Document reviewed and electronically signed by: ? SAIDA Mosqueda(ASCP) ? Report Date: ??04/27/2012 13:53 End of Report [facility] 04/21/2012 04/22/2012 Annie Hein FINISHING DEPARTMENT SUPERVISOR PATHOLOGY ORDERABLES Final R esult [facility] [address] [place] [address] documented in this encounter Visit Diagnoses Not on filedocumented in this encounter
--- OUTSIDE RECORDS SUMMARY | 2024-10-09 21:14 | XMS_ITS | Encounter Summary ---
Author Organization [facility] Address [address] [place] [address] Care Team Providers Care Air Conditioning Unit Tester Name Role Phone Earl Nash MD Primary Care Provider [phone] Encounter Details Date Type Department Care Team (Late st Contact Info) Description 09/16/[address] [facility] [phone] Alexis Wood MD [facility] [place], [place] [address] Social History Tobacco Use Types Packs/Day Years [...] Procedure Name Priority Date/Time Associated Diagnosis Comments SURGICAL PATHOLOGY Routine 09/16/2017 20 :54 EST documented in this encounter Results * SURGICAL PATHOLOGY (09/16/2017 20:54 EST) Pathology Report: SURGICAL PATHOLOGY REPORT Reports generated via electronic interface contain original data; however they are lacking the format of the original report. Caution should be taken when reading/interpret ing unformatted reports. Name: ? LUIS EDUARDO ADAIR ? Accession #: ? [id number] ? : ? 1980 (Age: 36) ??F ? Collect Date: ? 09/16/2017 ? Location: ? [facility] ? Receive Date: ? 09/16/2017 ? Provider: ALEXIS WOOD MD Copy to: EARL NASH MD ? Final Pathologic Diagnosis: A. FALLOPIAN TUBE, RIGHT DISTAL, STERILIZATION SALPINGECTOMY: - Fallopian tube with no specific pathologic features; full cross sections identified. B. FALLOPIAN TUBE, LEFT, STERILIZATION SALPINGECTOMY: - Fallopian tube with no specific pathologic features; full cross sections identified. Document reviewed and electronically signed by: ARCADIO FRANKLIN MD Report ??Date: 09/21/2017 15:31 By the signature above, the attending physician certifies that he/she has personally conducted a gross and/or microscopic examination of the described specimens and rendered or confirmed the above diagnosis. Specimen(s) Received: A. ??Distal right fallopian tube B. ??Left fallopian tube Clinical History: Multiparity; desiring permanent sterilization Gross Description: A. ?Received in formalin labelled with proper patient identification (initials B, J) and #1 distal right fallopian tube is a fimbriated fallopian tube (5.2 cm in length x 0.4 cm in diameter). ??The serosal surface is smooth and cassidy-purple. ??Sectioning reveals a central pinpoint lumen. The entire fimbria and a ambulatory services representative cross section are submitted in A1. B. ?Received in formalin labelled with proper patient identification (initials B, J) and #2 left fallopian tube is a fimbriated fallopian tube (3.7 cm in length and 0.5 cm in diameter). ??The serosal surface is smooth and cassidy-purple. ??Sectioning reveals a central pinpoint lumen. The entire fimbria and a ambulatory services representative cross section are submitted in B1. VIKKI Hennessy (ASCP) 09/17/2017 2:45 PM End of Report [facility] 09/16/2017 20:5 4 EST 09/16/2017 20:54 EST us Alexis Wood MD PATHOLOGY ORDERABLES Final Res ult [facility] [address] [place] [address] documented in this encounter Visit Diagnoses Not on filedocumented in this encounter Care Teams Air Conditioning Unit Tester Relationship Specialty Start Date End Date Earl Nash MD [address] [place] [address] PCP - General 01/25/13 documented as of this encounter
--- OUTSIDE RECORDS SUMMARY | 2024-10-09 21:14 | XMS_ITS | Encounter Summary ---
Author Organization [facility] Address [address] [place] [address] Care Team Providers Care Sleeve Machine Tender Name Role Phone Earl Nash MD Primary Care Provider [phone] Encounter Details Date Type Department Care Team (Late st Contact Info) Description 03/29/2014 Results Only [facility] Laboratory Services - [facility] [place] [address], [place] [address] Annie Hein, [facility] [address] [place] [address] [phone] Social History Tobacco Use Types Packs/Day Years [...] Diagnosis Comments PAP TEST- RESULT ONLY Routine 03/29/2014 0:00 EDT documented in this encounter Results * PAP TEST- RESULT ONLY (03/29/2014 0:00 EDT) Pathology Report: CYTOPATHOLOGY REPORT Reports generated via electronic interface contain original data; however they are lacking the format of the original report. Caution should be taken when reading/interpreti ng unformatted reports. Name: ? LUIS EDUARDO ADAIR ? Accession #: ? [id number] ? : ? 1980 (Age: 33) ??F ?Collect Date: ? 03/29/2014 ? Location: ? [facility] ? Receive Date: ? 03/30/2014 ? Provider: ANNIE HEIN IT CONSULTING DIRECTOR Copy to: EARL NASH MD ? Final Report SPECIMEN ADEQUACY ? Satisfactory for Evaluation - transformation zone component present GENERAL CATEGORIZATION ? Negative for Intraepithelial Lesion or Malignancy ?? Hormonal/Contracep tive status: Yes: MIRENA Specimen/Source: ??Pap Test, Cervix/Endocervix, ThinPrep Imaging System with manual evaluation Document reviewed and electronically signed by: ? Celina Bashir, [place](ASCP) ? Report ??Date: 04/11/2014 08:09 HPV with Pap Test ? Date Ordered: ? 04/11/2014 ? Status: ?? Signed Out ?Date Complete: ? 04/13/2014 ? By: ??System Interface ? Date Reported: ? 04/13/2014 ? Interpretation RESULT: Negative for HPV. No E6 or E7 mRNA is detected from HPV types 16,18,31,33,35, 39,45,51,52,56,58, 59,66, and 68 by legal writing professor mediated amplification. Comments Document reviewed and electronically signed by: ? System Interface ? Report date: 04/13/2014 By the signature above, the attending physician certifies that he/she has personally conducted a gross and/or microscopic examination of the described specimens and rendered or confirmed the above diagnosis. End of Report [facility] 03/29/2014 03/30/2014 us Annie Hein IT CONSULTING DIRECTOR PATHOLOGY ORDERABLES Final R esult [facility] [address] [place] [address] documented in this encounter Visit Diagnoses Not on filedocumented in this encounter Care Teams Sleeve Machine Tender Relationship Specialty Start Date End Date Earl Nash MD [address] [place] [address] PCP - General 01/25/13 documented as of this encounter
--- OUTSIDE RECORDS SUMMARY | 2024-10-09 21:14 | XMS_ITS | Encounter Summary ---
Author Organization [facility] Address [address] [place] [address] Care Team Providers Care Manager Mac Name Role Phone Unavailable Primary Care Provider Unavailabl e Encounter Details Date Type Department Care Team (Late st Contact Info) Description 02/26/2011 Results Only [facility] Laboratory Services - [facility] [place] [address] [place], [place] [address] Annie Hein, [facility] [address] [place] [address] Social History Tobacco Use Types Packs/Day [...] Diagnosis Comments PAP TEST- RESULT ONLY Routine 02/26/2011 0:00 EDT documented in this encounter Results * PAP TEST- RESULT ONLY (02/26/2011 0:00 EDT) Pathology Report: CYTOPATHOLOGY REPORT ? Reports generated via electronic interface contain original data; ? however they are lacking the format of the original report. ? Caution should be taken when reading/interpreti ng unformatted reports. ? Name: ? LUIS EDUARDO ADAIR ? Accession #: ? [id number] ? : ? 1980 (Age: 30) ??F ?Collect Date: ? 02/26/2011 ? Location: ? [facility] ? Receive Date: ? 02/27/2011 ? Provider: ?ANNIE MICAH PVC LOADER ? Copy to: ? Specimen/Source: ?Pap Test, Cervix/Endocervix, ThinPrep Imaging System ? with manual evaluation ? Last Menstrual Period: ? 05/02/11 ? Hormonal/Contracep tive Status: ? Intrauterine device: Pt. has Mirena ? SPECIMEN ADEQUACY ? Satisfactory for Evaluation ? - transformation zone component present ? GENERAL CATEGORIZATION ? Negative for Intraepithelial Lesion or Malignancy ? Document reviewed and electronically signed by: ? Coby [place], CT(ASCP) ? Report Date: ??03/05/2011 08:46 ? End of Report ? [facility] 02/26/2011 02/27/2011 us Annie Hein PVC LOADER PATHOLOGY ORDERABLES Final R esult [facility] [address] [place] [address] documented in this encounter Visit Diagnoses Not on filedocumented in this encounter
--- OUTSIDE RECORDS SUMMARY | 2024-10-09 21:14 | XMS_ITS | Encounter Summary ---
Author Organization [facility] Address [address] [place] [address] Care Team Providers Care Foot Doctor Name Role Phone Unavailable Primary Care Provider Unavailabl e Encounter Details Date Type Department Care Team (Late st Contact Info) Description 02/23/2007 Results Only [facility] [address] [place] [address] Checo Yee ARNP [address] [place] [address] Social History Tobacco Use Types Packs/Day Years [...] Priority Date/Time Associated Diagnosis Comments CYTOPATHOLOGY Routine 02/23/2007 0:00 EDT documented in this encounter Results * CYTOPATHOLOGY (02/23/2007 0:00 EDT) Pathology Report: CYTOPATHOLOGY REPORT Reports generated via electronic interface contain original data; however they are lacking the format of the original report. Caution should be taken when reading/interpreti ng unformatted reports. Name: ? LUIS EDUARDO ADAIR ? Accession #: ? [id number] : ? 1980 (Age: 26) ??F ?Collect Date: ? 02/23/2007 Location: ? [facility] ? Receive Date: ? 02/25/2007 Provider: ?CHECO AMEZCUA Copy to: ? Specimen/Source: ?ThinPrep Pap Test, Vagina/Cervix/Endo cervix, processed on [employer] ThinPrep Imaging System, with manual evaluation Last Menstrual Period: ? Menstrual/Pregnanc y Status: ? Post Other: ? Additional clinical information: H/o benign pap hx. Nursing. Atrophic. HPVA - HPV testing requested if ASC-US on the current ThinPrep Pap test. ? SPECIMEN ADEQUACY ? Satisfactory for Evaluation - transformation zone component present - scant squamous epithelial component secondary to excessive inflammation GENERAL CATEGORIZATION ? Negative for Intraepithelial Lesion or Malignancy ? Document reviewed and electronically signed by: ? Coby [place], CT(ASCP) ? Report Date: ??03/03/2007 14:47 End of Report [facility] 02/23/2007 02/25/2007 Checo AMEZCUA PATHOLOGY ORDERABLES Final Result [facility] [address] [place] [address] documented in this encounter Visit Diagnoses Not on filedocumented in this encounter
--- OUTSIDE RECORDS SUMMARY | 2024-10-09 21:14 | XMS_ITS | Encounter Summary ---
Author Organization [facility] Address [address] [place] [address] Care Team Providers Care Physician Support Coordinator Name Role Phone Earl Nash MD Primary Care Provider [phone] Encounter Details Date Type Department Care Team (Latest Contact Info) Description 09/16/2017 13:11 EST - 09/16/2017 23:59 EST Hospital Encounter [address] [address] Unknown, Provider, Discharge Disposition: Home or Self Care Social History Tobacco Use Types Packs/Day Years Used Date Smoking Tobacco: Never Assessed Comments Unknown Sex and Gender Information Value Date Recorded Sex Assigned at Not on file Legal Sex Female 18:40 EST Gender Identity Not on file Sexual Orientation Not on file documented as of this encounter Discharge Disposition Disposition Code Departure Means Destination Home or Self Residential documented in this encounter Plan of Treatment Not on file documented as of this encounter Visit Diagnoses Not on filedocumented in this encounter Care Teams Physician Support Coordinator Relationship Specialty Start Date End Date Earl Nash MD [address] [place] [address] PCP - General 01/25/13 documented as of this encounter
--- OUTSIDE RECORDS SUMMARY | 2024-10-09 21:14 | XMS_ITS | Clinical Summary ---
Author Organization [facility] [address] Care Team Providers Care Windows Vmware Engineer Name Role Phone Earl Nash MD Primary Care Provider [phone] Allergies Active Allergy Reactions Criticality Noted Date Comments Sulfa (Sulfonamide Antibiotics) Itching,Rash Medications Medication Sig Dispensed Refills Start Date End Date Status venlafaxine (EFFEXOR) 75 mg tablet Take 75 mg by mouth 3 times daily. Active Active Problems Problem Noted Date Diagnosed Date Abdominal pannus 02/06/2013 Social History Tobacco Use Types Packs/Day Years Used Date Smoking Tobacco: Former Cigarettes 0.5 5 0 06/04/2000 - 06/04/2005 Smokeless Tobacco: Never Tobacco Cessation:Ready to Q uit: Not Asked Alcohol Use Standard Drinks/Week Comments Yes 0 (1 standard drink = 0.6 oz pur e alcohol) Sex and Gender Information Value Date Recorded Sex Assigned at Not on file Gender Identity Not on file Sexual Orientation Not on file Last Filed Vital Signs Vital Sign Reading Time Taken Comments Blood Pressure 148/98 02/06/2013 2:07 PM EDT Pulse 69 02/06/2013 2:07 PM EDT Temperature - - Respiratory Rate - - Oxygen Saturation - - Inhaled Oxygen Concentration - - Weight 94 kg (207 lb 3.2 oz) 02/06/2013 2:07 PM EDT Height 161.3 cm (5' 3.5) 02/06/2013 2:07 PM EDT Body Mass Index 36.13 02/06/2013 2:07 PM EDT Plan of Treatment Health Maintenance Due Date Last Done Comments HIV screen 1997 Hepatitis C Screening 1997 Hepatitis B vaccine (0-59 yrs) (1) 1998 Tetanus/Diphtheria/Pertussis Vaccines (1 - Tdap) 11/17 HPV test 2009 PAP Smear 2009 Breast Cancer Share Decision Needed 2019 Breast Cancer screening 2019 Covid-19 Vaccine (2023- season) 2024 Influenza (Flu) vaccine (1 o f 1 - Influenza standard series) 06/04/2024 Care Teams Windows Vmware Engineer Relationship Specialty Start Date End Date Earl Nash MD [address] [place] [address] PCP - General 01/18/13
--- OUTSIDE RECORDS SUMMARY | 2024-10-09 21:14 | XMS_ITS | Encounter Summary ---
Author Organization [facility] [place] [address] Care Team Providers Care Television Audio Engineer Name Role Phone Earl Nash MD Primary Care Provider [phone] Reason for Visit * Reason Comments Advice Only abdominoplasty Encounter Details Date Type Department Care Team (Late st Contact Info) Description 02/06/2013 1:50 PM EDT Office [place] [id number] Cayetano Melissa MD [facility] [place] [address] Abdominal pannus (Primary Dx) Discharge Disposition: Home Social History Tobacco Use Types Packs/Day Years Used Date Smoking Tobacco: Former Cigarettes 0.5 5 0 06/04/2000 - 06/04/2005 Smokeless Tobacco: Never Alcohol Use Standard Drinks/Week Comments Yes 0 (1 standard drink = 0.6 oz pur e alcohol) Sex and Gender Information Value Date Recorded Sex Assigned at Not on file Gender Identity Not on file Sexual Orientation Not on file documented as of this encounter Last Filed Vital Signs Vital Sign Reading [...] Mass Index 36.13 02/06/2013 2:07 PM EDT documented in this encounter Patient Instructions * Patient Instructions* Karley Marc RN - 02/06/2013 2:47 PM EDT Call for appointment after weight loss. documented in this encounter Progress Notes * Cayetano Melissa MD - 02/06/2013 2:09 PM EDT Plastic Surgery Consultation Note Cayetano Melissa MD PCP: EARL NASH MD CC: Abdominal contour HPI: Junie Denny is a 32 y.o. female is seen for a discussion of options for improvement of her abdominal contour. She is seen today as a self referral. Her primary concerns are a protuberant lower abdomen. She reports she has had two c-sections. She is 5' 3 tall and weighs 207 lbs. Her maximum weight was 230. She reports it has taken her about 6 months to lose the weight. She is not continuing to lose weight. She has been stable at this weight for over 6 months. Her goal is to be able towear her normal size pants. She denies any rash or infection. She does exercise regularly by doing Ambar. PMH: Past Medical History Diagnosis Date ??? Allergy 1990 Pollen, sulpha drugs ??? Digestive problems 2011 heartburn ??? Headache 1999 migraines PSHx: Past Surgical History Procedure Date ??? Genital surg proc, female unlisted 01/12/2007, 09/07/09 ??? Cranio/maxillofacial surg unlisted August 2011 dental implant ROS: GI, /INSURANCE ANALYST, Psych, Card, Pulm, Endo, Heme, Immun, Neuro: negative SocHx: History Social History ??? Marital Status: Spouse Name: N/A Number of Children: N/A ??? Years of Education: N/A Occupational History ??? Not on file. Social History Main Topics ??? Smoking status: Former Smoker -- 0.5 packs/day for 5 years Types: Cigarettes Quit date: 06/04/2005 ??? Smokeless tobacco: Never Used ??? Alcohol Use: Yes 1 Cans of beer per week ??? Drug Use: No ??? Sexually Active: Not on file Other Topics Concern ??? Exercise: Patient Reported Yes ??? Abuse Or Threat: Physical, Sexual, Verbal No Social History Narrative ??? No narrative on file Examination: BP 148/98 Pulse 69 Ht 161.3 cm (5' 3.5) Wt 93.985 kg (207 lb 3.2 oz) BMI 36.13 kg/m2 General: On my examination today, normal appears to be in good health. Her emotional outlook is positive and she asked appropriate questions throughout the visit. Skin Abdomen: Her abdomen is soft and obese with striae. Scars: Transverse scar There are moderate contour irregularities of the abdominal subcutaneous fat, particularly in the lower abdomen. Mild diastasis No hernia palpable Resp: Regular rate, no tachypnea, no stridor, no wheezing Extrem: wwp, no c/e/e, no rashes Impression: She is a reasonable candidate for abdominoplasty. We discussed timing at length and her BMI. Will need to obtain BMI less than 35 prior to surgery. We also discussed physical/activity limitations post op. Recommendations: Abdominoplasty The procedure of abdominoplasty was discussed and the resulting scars (transverse and periumbilical) were reviewed. We talked about complications of numbness, infection, hematoma, seroma, asymmetry, need for scar revision and delayed wound healing. We also discussed the additional risks of liposuction, which include irregularities of the skin, risk of skin loss, risk of blood clots or pulmonary complications. We also discussed the fact that she is at higher risk for potential risks and complications with surgery due to her current weight and BMI. I advised her getting to a BMI of 35 or less would lessen her potential risks and complications. She was provided [facility]PRS brochures and informed consent documents on both procedures. We will get her pricing information and proceed to book her in the main operating room if she wishes to proceed. If she has additional questions that arise I would be happy to see her again in the office. Photos taken today with informed signed consent Surgeon: Cayetano Melissa Duration: 3 hours Timeframe: Elective Coordinated with: None Procedure: Abdominoplasty CPT: 44650 Surgical site: Abdomen Side: N/a Anesthesia: General Follow up: 10-14 days PAT: No Plan: 1 Schedule procedure 2. Follow up prior to surgery IKristen, am acting as scribe for Dr Melissa. All work documented was performed by Dr Melissa. ???I performed the above scribed service and agree with the accuracy of the note?? Cayetano Melissa MD documented in this encounter Miscellaneous Notes * Miscellaneous - Provider, Scanning - 02/13/2013 4:00 AM EDT documented in this encounter Plan of Treatment Not on file documented as of this encounter Visit Diagnoses Diagnosis Abdominal pannus- Primary Localized adiposity documented in this encounter Care Teams Television Audio Engineer Relationship Specialty Start Date End Date Earl Nash MD [address] [place] [address] PCP - General 01/18/13 documented as of this encounter
[2024-10-10 19:14] LABS: HIV-1/2 Ag & Ab Screen Negative (Negative)
[2024-10-11 10:34] LABS: Syphilis Serology (RPR) Negative (Negative)
== END 2024-10-09 21:13 | disposition home or self-care (01) ==
LOC: NCHCN 21:12
PROVIDERS: PCP Family Medicine; Visit Provider Family Medicine
DX: Z11.3 Encounter for screening for infections with a predominantly sexual mode of transmission (principal)
CPT/HCPCS: 87389; 86592

== ENCOUNTER 2024-10-10 19:26 | Outpatient (REF) | payer MEDICAID, SELFPAY ==
--- OUTSIDE RECORDS SUMMARY | 2024-10-10 19:27 | XMS_ITS | Encounter Summary ---
Author Organization [facility] Address [address] [place] [address] Care Team Providers Care Lean Manufacturing Specialist Name Role Phone Earl Nash MD Primary Care Provider Encounter Details Date Type Department Care Team (Late st Contact Info) Description 10/10/2024 Lab Requisition [facility] Pathology & Laboratory Medicine - [address] [address] Outr Resulting Lab, Provider Social History Tobacco [...] Procedure Name Priority Date/Time Associated Diagnosis Comments HIV 1/2 ANTIGEN AND ANTIBODY, 4TH GENERATION Routine 10/09/2024 15:59 EST documented in this encounter Results * HIV 1/2 ANTIGEN AND ANTIBODY, 4TH GENERATION (10/09/2024 15:59 EST) HIV 1 and 2 Antibody/p24 Antigen, 4th Generation Negative Negative 10/10/2024 19:10 EST [facility] Comment:If acute HIV-1 infec tion is suspected in a high risk patient, submit plasma specimen for HIV-1 RNA quantitation test. Blood VENOUS BLOOD / Unknown 10/09/2024 15:59 EST 10/10/2024 17:01 EST Narrative [facility] - 10/10/2024 19:10 EST Fourth Generation assay performed on the Siemens [email or web address] XPT. us Provider Outr Resulting Lab IMMUNOLOGY AND SEROL OGY ORDERABLES Final Result [facility] [address] [place] [address] documented in this encounter Visit Diagnoses Not on filedocumented in this encounter Care Teams Lean Manufacturing Specialist Relationship Specialty Start Date End Date Earl Nash MD [address] [place] [address] PCP - General 01/25/13 documented as of this encounter
--- OUTSIDE RECORDS SUMMARY | 2024-10-10 19:27 | XMS_ITS | Encounter Summary ---
Author Organization [facility] Address [address] [place] [address] Care Team Providers Care Director Presales Name Role Phone Earl Nash MD Primary Care Provider [phone] Encounter Details Date Type Department Care Team (Late st Contact Info) Description 02/19/2021 Lab Requisition [facility] Pathology & Laboratory Medicine - [address] [address] Outr Resulting Lab, Provider Social History Tobacco [...] AL ORDERABLES Final Result Performing Organization Address City/State/[facility] Co de Phone Number [facility] [address] [place] [address] * COVID-19 TESTING (02/19/2021 9:58 EDT) COVID-19 rt-PCR Result Negative Negative 02/20/2021 15:50 EDT [facility] Comment: This test has not [...] developed and its performance characteristics determined by [facility]. It has not been cleared or [...] testing. This test is based on the [facility] COVID-19 Emergency Use Authorization (EUA) assay, with minor modification as defined by the FDA Performed on the [employer] 7 Flex RT-PCR System. Performing Lab [facility] 02/20/2021 15:50 EDT [facility] Swab 02/19/2021 9:58 EDT 02/19/2021 15:32 EDT Provider Outr Resulting Lab MICROBIOLOGY - GENER AL ORDERABLES Final Result [facility] [address] [place] [address] documented in this encounter Visit Diagnoses Not on filedocumented in this encounter Care Teams Director Presales Relationship Specialty Start Date End Date Earl Nash MD [address] [place] [address] PCP - General 01/25/13 documented as of this encounter
--- OUTSIDE RECORDS SUMMARY | 2024-10-10 19:27 | XMS_ITS | Encounter Summary ---
Author Organization [facility] Address [address] [place] [address] Care Team Providers Care Vocational Adviser Name Role Phone Unavailable Primary Care Provider Unavailabl e Encounter Details Date Type Department Care Team (Late st Contact Info) Description 10/18/2009 Orders Only [facility] Laboratory Services - [facility] ([facility] [place] [address] [place], [place] [address] Rosemary Tran MD [address] [place] [address] Social History Tobacco Use Types Packs/Day Years [...] LUIS EDUARDO ADAIR ? Accession #: ? [id number] ? : ? 1980 (Age: 28) ??F [...] Report ? [facility] 10/18/2009 10/22/2009 us Rosemary Tran MD PATHOLOGY ORDERABLES Final Resu lt [facility] [address] [place] [address] documented in this encounter Visit Diagnoses Not on filedocumented in this encounter
--- OUTSIDE RECORDS SUMMARY | 2024-10-10 19:27 | XMS_ITS | Encounter Summary ---
Author Organization [facility] Address [address] [place] [address] Care Team Providers Care Carpet Technician Name Role Phone Earl Nash MD Primary Care Provider [phone] Encounter Details Date Type Department Care Team (Late st Contact Info) Description 12/26/2020 Lab Requisition [facility] Pathology & Laboratory Medicine - [address] [address] Outr Resulting Lab, Provider Social History Tobacco [...] MICROBIOLOGY - GENER AL ORDERABLES Final Result [facility] [address] [place] [address] * COVID-19 TESTING (12/26/2020 10:40 EDT) COVID-19 rt-PCR Result Negative Negative 12/27/2020 14:44 EDT [facility] Comment: This test [...] developed and its performance characteristics determined by [facility]. It has not been cleared or approved [...] testing. This test is based on the [facility] COVID-19 Emergency Use Authorization (EUA) assay, with minor modification as defined by the FDA Performed on the [employer] 7 Pro RT-PCR System. Performing Lab [facility] 12/27/2020 14:44 EDT [facility] Swab 12/26/2020 10:4 0 EDT 12/26/2020 20:42 EDT Provider Outr Resulting Lab MICROBIOLOGY - GENER AL ORDERABLES Final Result [facility] [address] [place] [address] documented in this encounter Visit Diagnoses Not on filedocumented in this encounter Care Teams Carpet Technician Relationship Specialty Start Date End Date Earl Nash MD [address] [place] [address] PCP - General 01/25/13 documented as of this encounter
--- OUTSIDE RECORDS SUMMARY | 2024-10-10 19:27 | XMS_ITS | Encounter Summary ---
Author Organization [facility] Address [address] [place] [address] Care Team Providers Care Occupational Therapist Name Role Phone Earl Nash MD Primary Care Provider [phone] Encounter Details Date Type Department Care Team (Latest Contact Info) Description 09/16/2017 13:11 EST - 09/16/2017 23:59 EST Hospital Encounter [address] [address] Unknown, Provider, Discharge Disposition: Home or Self [...] Code Departure Means Destination Home or Self Alf documented in this encounter Plan of Treatment Not on file documented as of this encounter Visit Diagnoses Not on filedocumented in this encounter Care Teams Occupational Therapist Relationship Specialty Start Date End Date Earl Nash MD [address] [place] [address] PCP - General 01/25/13 documented as of this encounter
--- OUTSIDE RECORDS SUMMARY | 2024-10-10 19:27 | XMS_ITS | Encounter Summary ---
Author Organization [facility] Address [address] [place] [address] Care Team Providers Care Acquisition Manager Name Role Phone Unavailable Primary Care Provider Unavailabl e Encounter Details Date Type Department Care Team (Late st Contact Info) Description 02/26/2011 Results Only [facility] Laboratory Services - [facility] ([facility]) [address] [place], [place] [address] Annie Hein, [facility] [address] [place] [address] Social History Tobacco Use Types [...] LUIS EDUARDO ADAIR ? Accession #: ? [id number] ? : ? 1980 (Age: 30) ??F ?Collect Date: ? 02/26/2011 ? Location: ? [facility] ? Receive Date: ? 02/27/2011 ? Provider: ?ANNIE MICAH AUTOMOBILE RENTAL AGENT ? Copy to: ? Specimen/Source: ?Pap Test, [...] [facility] 02/26/2011 02/27/2011 us Annie Hein AUTOMOBILE RENTAL AGENT PATHOLOGY ORDERABLES Final R esult [facility] [address] [place] [address] documented in this encounter Visit Diagnoses Not on filedocumented in this encounter
--- OUTSIDE RECORDS SUMMARY | 2024-10-10 19:27 | XMS_ITS | Encounter Summary ---
Author Organization [facility] Address [address] [place] [address] Care Team Providers Care Quilting Supervisor Name Role Phone Earl Nash MD Primary Care Provider [phone] Encounter Details Date Type Department Care Team (Late st Contact Info) Description 06/08/2019 Results Only [facility] [phone] Gabriele Motley MD [address] [place] [phone] Social History Tobacco Use Types Packs/Day [...] LUIS EDUARDO ADAIR ? Accession #: ? [id number] ? : ? 1980 (Age: 38) ??F [...] types 16,18,31,33,35, 39,45,51,52,56,58, 59,66, and 68 by spiral winding machine helper mediated amplification. Comments Document reviewed and electronically signed by: ? System Interface ? Report date: 06/16/2019 By the signature above, the attending physician certifies that he/she has personally conducted a gross and/or microscopic examination of the described specimens and rendered or confirmed the above diagnosis. End of Report [facility] 06/08/2019 06/12/2019 us Gabriele Motley MD PATHOLOGY ORDERABLES Final Res ult [facility] [address] [place] [address] documented in this encounter Visit Diagnoses Not on filedocumented in this encounter Care Teams Quilting Supervisor Relationship Specialty Start Date End Date Earl Nash MD [address] [place] [address] PCP - General 01/25/13 documented as of this encounter
--- OUTSIDE RECORDS SUMMARY | 2024-10-10 19:27 | XMS_ITS | Encounter Summary ---
Author Organization [facility] Address [address] [place] [address] Care Team Providers Care Crm Analyst Name Role Phone Earl Nash MD Primary Care Provider [phone] Encounter Details Date Type Department Care Team (Late st Contact Info) Description 10/10/2024 Lab Requisition [facility] Pathology & Laboratory Medicine - [address] [address] Outr Resulting Lab, Provider Social History Tobacco [...] as of this encounter Plan of Treatment Pending Results Name Type Priority Associated Diagnoses Date /Time SYPHILIS SEROLOGY Lab Routine 025 15:59 EST documented as of this encounter Visit Diagnoses Not on filedocumented in this encounter Care Teams Crm Analyst Relationship Specialty Start Date End Date Earl Nash MD [address] [place] [address] PCP - General 01/25/13 documented as of this encounter
--- OUTSIDE RECORDS SUMMARY | 2024-10-10 19:27 | XMS_ITS | Encounter Summary ---
Author Organization [facility] Address [address] [place] [address] Care Team Providers Care Label Fuser Tender Name Role Phone Unavailable Primary Care Provider Unavailabl e Encounter Details Date Type Department Care Team (Late st Contact Info) Description 02/04/2009 Orders Only [facility] Laboratory Services - [facility] ([facility]) [address] [place], [place] [address] Rosemary Tran MD [address] [place] [address] Social History Tobacco Use Types Packs/Day Years [...] LUIS EDUARDO ADAIR ? Accession #: ? [id number] ? : ? 1980 (Age: 28) ??F [...] Final Resu lt [facility] [address] [place] [address] documented in this encounter Visit Diagnoses Not on filedocumented in this encounter
--- OUTSIDE RECORDS SUMMARY | 2024-10-10 19:27 | XMS_ITS | Encounter Summary ---
Author Organization [facility] Address [address] [place] [address] Care Team Providers Care Ship Scaler Name Role Phone Unavailable Primary Care Provider Unavailabl e Encounter Details Date Type Department Care Team (Late st Contact Info) Description 02/23/2007 Results Only [facility] [address] [place] [address] Checo Yee ARNP [address] [place] [address] Social History Tobacco Use Types Packs/Day Years [...] LUIS EDUARDO ADAIR ? Accession #: ? [id number] : ? 1980 (Age: 26) ??F ?Collect Date: ? 02/23/2007 Location: ? [facility] ? Receive Date: ? 02/25/2007 Provider: ?CHECO AMEZCUA Copy to: ? Specimen/Source: ?ThinPrep Pap Test, Vagina/Cervix/Endo cervix, processed on [employer] ThinPrep Imaging System, with manual evaluation Last [...] PATHOLOGY ORDERABLES Final Result [facility] [address] [place] [address] documented in this encounter Visit Diagnoses Not on filedocumented in this encounter
--- OUTSIDE RECORDS SUMMARY | 2024-10-10 19:27 | XMS_ITS | Clinical Summary ---
Author Organization [facility] Address [address] [place] [address] Care Team Providers Care Senior Master Scheduler Name Role Phone Earl Nash MD Primary Care Provider [phone] Encounters Date Type Department Care Team Description 10/10/2024 Lab Requisition [facility] Pathology & Laboratory [address] [address] Outr Resulting Lab, Provider 10/10/2024 Lab Requisition [facility] Pathology & Laboratory [facility] [address] [place] [address] Outr Resulting Lab, Provider from Last 3 Months Social History Tobacco Use Types Packs/Day Years [...] series) 11/17 COVID-19 Vaccine ( season) 2024 Procedures Procedure Name Priority Date/Time Associated Diagnosis Comments HIV 1/2 ANTIGEN AND ANTIBODY, 4TH GENERATION Routine 10/09/2024 15:59 EST from Last 3 Months Results * HIV 1/2 ANTIGEN AND ANTIBODY, 4TH GENERATION (10/09/2024 15:59 EST) HIV 1 and 2 Antibody/p24 Antigen, 4th Generation Negative Negative 10/10/2024 19:10 EST [facility] Comment:If acute HIV-1 infec tion is suspected in a high risk patient, submit plasma specimen for HIV-1 RNA quantitation test. Blood VENOUS BLOOD / Unknown 10/09/2024 15:59 EST 10/10/2024 17:01 EST Narrative [facility] - 10/10/2024 19:10 EST Fourth Generation assay performed on the Siemens Centaur XPT. us Provider Outr Resulting Lab IMMUNOLOGY AND SEROL OGY ORDERABLES Final Result [facility] [address] [place] [address] from Last 3 Months Insurance * Guarantor: Junie Denny Account Type Relation to Patient Date of Phone Billing Address Personal/Family Self 1980 [phone] (Work) [address] [place] [id number] [place] Care Teams Senior Master Scheduler Relationship Specialty Start Date End Date Earl Nash MD [address] [place] [address] PCP - General 01/25/13
--- OUTSIDE RECORDS SUMMARY | 2024-10-10 19:27 | XMS_ITS | Clinical Summary ---
Author Organization [facility] [place] [address] Care Team Providers Care Wet Press Tender Name Role Phone Earl Nash MD Primary Care Provider [phone] Allergies Active Allergy Reactions Criticality Noted Date [...] - Influenza standard series) 06/04/2024 Care Teams Wet Press Tender Relationship Specialty Start Date End Date Earl Nash MD [address] [place] [address] PCP - General 01/18/13
--- OUTSIDE RECORDS SUMMARY | 2024-10-10 19:27 | XMS_ITS | Encounter Summary ---
Author Organization [facility] Address [address] [place] [address] Care Team Providers Care Pile Driver Engineer Name Role Phone Earl Nash MD Primary Care Provider [phone] Encounter Details Date Type Department Care Team (Late st Contact Info) Description 09/16/2017 Results Only [facility] [phone] Alexis [place] MD [facility] [place], [place] [address] Social History Tobacco Use Types Packs/Day Years [...] LUIS EDUARDO ADAIR ? Accession #: ? [id number] ? : ? 1980 (Age: 36) ??F [...] pinpoint lumen. The entire fimbria and a delivery representative cross section are submitted in A1. B. ?Received in formalin labelled with proper patient identification (initials B, J) and #2 left fallopian tube is a fimbriated fallopian tube (3.7 cm in length and 0.5 cm in diameter). ??The serosal surface is smooth and cassidy-purple. ??Sectioning reveals a central pinpoint lumen. The entire fimbria and a delivery representative cross section are submitted in B1. VIKKI Hennessy (ASCP) 09/17/2017 2:45 PM End of Report [facility] 09/16/2017 20:5 4 EST 09/16/2017 20:54 EST us Alexis [place] MD PATHOLOGY ORDERABLES Final Res ult [facility] [address] [place] [address] documented in this encounter Visit Diagnoses Not on filedocumented in this encounter Care Teams Pile Driver Engineer Relationship Specialty Start Date End Date Earl Nash MD [address] [place] [address] PCP - General 01/25/13 documented as of this encounter
--- OUTSIDE RECORDS SUMMARY | 2024-10-10 19:27 | XMS_ITS | Encounter Summary ---
Author Organization [facility] Address [address] [place] [address] Care Team Providers Care Metal Roofer Name Role Phone Unavailable Primary Care Provider Unavailabl e Encounter Details Date Type Department Care Team (Late st Contact Info) Description 04/21/2012 Results Only [facility] Laboratory Services - [facility] ([facility]) [address] [place], [place] [address] Annie Hein, [facility] [address] [place] [phone] Social History Tobacco Use Types Packs/Day [...] LUIS EDUARDO ADAIR ? Accession #: ? [id number] : ? 1980 (Age: 31) ??F ?Collect Date: ? 04/21/2012 Location: ? [facility] ? Receive Date: ? 04/22/2012 Provider: ?ANNIE HEIN SUPERVISOR COLOR PASTE MIXING Copy to: ?BENNIE SHARP MD ? Specimen/Source: [...] Report [facility] 04/21/2012 04/22/2012 Annie Hein SUPERVISOR COLOR PASTE MIXING PATHOLOGY ORDERABLES Final R esult [facility] [address] [place] [address] documented in this encounter Visit Diagnoses Not on filedocumented in this encounter
--- OUTSIDE RECORDS SUMMARY | 2024-10-10 19:27 | XMS_ITS | Referral Summary ---
Author Organization [facility] Address [address] [place] [address] Care Team Providers Care Service Plumber Name Role Phone Earl Nash MD Primary Care Provider [phone] Encounters Date Type Department Care Team Description 10/10/2024 Lab Requisition [facility] Pathology & Laboratory [address] [address] Outr Resulting Lab, Provider 10/10/2024 Lab Requisition [facility] Pathology & Laboratory [facility] [address] [place] [address] Outr Resulting Lab, Provider from Last 3 [...] file Plan of Treatment Not on file Procedures Procedure Name Priority Date/Time Associated Diagnosis Comments HIV 1/2 ANTIGEN AND ANTIBODY, 4TH GENERATION Routine 10/09/2024 15:59 EST from Last 3 Months Results * HIV 1/2 ANTIGEN AND ANTIBODY, 4TH GENERATION (10/09/2024 15:59 EST) HIV 1 and 2 Antibody/p24 Antigen, 4th Generation Negative Negative 10/10/2024 19:10 EST [facility] Comment:If acute HIV-1 infec tion is suspected in a high risk patient, submit plasma specimen for HIV-1 RNA quantitation test. Blood VENOUS BLOOD / Unknown 10/09/2024 15:59 EST 10/10/2024 17:01 EST Narrative [facility] - 10/10/2024 19:10 EST Fourth Generation assay performed on the Siemens Centaur XPT. us Provider Outr Resulting Lab IMMUNOLOGY AND SEROL OGY ORDERABLES Final Result [facility] [address] [place] [address] from Last 3 Months Insurance * Guarantor: Junie Denny Account Type Relation to Patient Date of Phone Billing Address Personal/Family Self 1980 [phone] (Work) [address] [place] [id number] [place] Care Teams Service Plumber Relationship Specialty Start Date End Date Earl Nash MD [address] [place] [address] PCP - General 01/25/13
--- OUTSIDE RECORDS SUMMARY | 2024-10-10 19:27 | XMS_ITS | Encounter Summary ---
Author Organization [facility] [place] [address] Care Team Providers Care Player Manager Name Role Phone Earl Nash MD Primary Care Provider [phone] Reason for Visit * Reason Comments Advice Only abdominoplasty Encounter Details Date Type Department Care Team (Late st Contact Info) Description 02/06/2013 1:50 PM EDT Office [place] [phone] Cayetano Melissa MD [facility] [place] [address] Abdominal pannus (Primary Dx) Discharge Disposition: Home [...] unlisted August 2011 dental implant ROS: GI, /DIAMOND CUTTER, Psych, Card, Pulm, Endo, Heme, Immun, Neuro: [...] Elective Coordinated with: None Procedure: Abdominoplasty CPT: 53247 Surgical site: Abdomen Side: N/a Anesthesia: General [...] adiposity documented in this encounter Care Teams Player Manager Relationship Specialty Start Date End Date Earl Nash MD [address] [place] [address] PCP - General 01/18/13 documented as of this encounter
--- OUTSIDE RECORDS SUMMARY | 2024-10-10 19:27 | XMS_ITS | Encounter Summary ---
Author Organization [facility] Address [address] [place] [address] Care Team Providers Care Combatant Swimmer Name Role Phone Earl Nash MD Primary Care Provider [phone] Encounter Details Date Type Department Care Team (Late st Contact Info) Description 03/29/2014 Results Only [facility] Laboratory Services - [facility] ([facility] [address] [place], [place] [address] Annie Hein, [facility] [address] [place] [phone] Social History Tobacco Use Types Packs/Day Years [...] LUIS EDUARDO ADAIR ? Accession #: ? [id number] ? : ? 1980 (Age: 33) ??F ?Collect Date: ? 03/29/2014 ? Location: ? [facility] ? Receive Date: ? 03/30/2014 ? Provider: ANNIE HEIN RN ICU Copy to: EARL NASH MD ? Final [...] types 16,18,31,33,35, 39,45,51,52,56,58, 59,66, and 68 by air export operations agent mediated amplification. Comments Document reviewed and electronically signed by: ? System Interface ? Report date: 04/13/2014 By the signature above, the attending physician certifies that he/she has personally conducted a gross and/or microscopic examination of the described specimens and rendered or confirmed the above diagnosis. End of Report [facility] 03/29/2014 03/30/2014 us Annie Hein RN ICU PATHOLOGY ORDERABLES Final R esult [facility] [address] [place] [address] documented in this encounter Visit Diagnoses Not on filedocumented in this encounter Care Teams Combatant Swimmer Relationship Specialty Start Date End Date Earl Nash MD [address] [place] [address] PCP - General 01/25/13 documented as of this encounter
[2024-10-12 12:10] LABS: Chlamydia Result Negative (Negative); GC Result Negative (Negative)
== END 2024-10-10 19:27 | disposition home or self-care (01) ==
LOC: NCHCN 19:26
PROVIDERS: PCP Family Medicine; Visit Provider Family Medicine
DX: Z11.3 Encounter for screening for infections with a predominantly sexual mode of transmission (principal)
CPT/HCPCS: 87491; 87591

== ENCOUNTER 2024-10-17 07:59 | Day surgery (SDC) | payer MEDICAID, SELFPAY ==
--- NOTE | 2024-10-16 15:26 | COLE_ITS ---
Date of service: 10/17/24 Time of Service: 10:20 Colonoscopy Report Date of procedure: 10/17/24 Pre-op diagnosis general: CRC screening/possible enterocele Post-op diagnosis procedure note: other (External hemorrhoids) Surgeon: Heidy Theodore Anesthesia Type: MAC Estimated blood loss (mL): 0 Pathology: none sent Complications: None Disposition: same day Prep: Miralax/Dulcolax Retraction Time: 7 Procedure Description: After informed consent was obtained, explaining risks of the procedure, including but not limits to: bleeding, infections, complications of anesthesia, perforations (which may require antibiotics and /or surgery and stay in the hospital), and abdominal pain/cramping. Exam was done for enterocele with the patient's consent prior to anesthesia. There was no sign of enterocele/rectocele. The patient was taken to the procedure room and placed in a left decubitous position. Monitors were applied and a time out was done. The patients name, date of , procedure, allergies to medications and metal in their body was reviewed. The patient was then sedated. Once sedated and comfortable a rectal exam was done. External exam shows mild external hemorrhoids without inflammation or thrombosis. Internal exam revealed a normal sphincter tone and no palpable masses. The previously lubricated Olympus scope was then introduced (see RN notes for scope number) and retrofelexed. No internal hemorrhoids were identified. The scope was then advanced to the cecum without difficulty. The TI and appendiceal orifice were identified. The scope was then slowly retracted over 7 minutes back into the rectum. Polyps: None. Diverticula: None. The mucosa is pink and healthy w/ a normal vascular pattern. The scope was removed, and the patient was woken up and taken back to Same day surgery in stable condition. The patient tolerated the procedure well and there were no immediate complications. Follow up: The patient should follow up in 10 years, unless they develop changes in bowel habits or other new gastrointestinal complaints. [facility] Bowel Prep [facility] Bowel Prep Right Colon: 3 Left Colon: 3 Transverse Colon: 3 Total Score: 9
--- NOTE | 2024-10-16 15:26 | PDOC.DSDIS_ITS ---
Date of service: 10/17/24 Discharge Plan Disposition Patient Disposition: Home Condition: Good Discharge Details Reason For Visit: colon scope Attending Provider: Heidy Theodore Primary Care Provider: Emperatriz Motley Home Meds and New Rx's Prescriptions: Continued trazodone 50 mg tablet 150 mg PO QHS PRN acetylcysteine [NAC] 600 mg capsule 1,200 mg PO BID gabapentin 100 MG capsule 100 mg PO DAILY 0RF acetaminophen [Mapap Extra Strength] 500 MG tablet 1,000 mg PO Q8H PRN PRNQty: 0 0RF Claritin-D 24 Hour 1 EACH tablet extended release 24 hr 1 ea PO PRN PRN ibuprofen 600 mg Tablet 600 mg PO Q6H PRN Discontinued bisacodyl [Dulcolax (bisacodyl)] 5 mg tablet,delayed release (DR/EC) 5 mg PO ONCE Qty: 4 0RF Rx Instructions: take per colonoscopy instructions polyethylene glycol 3350 17 gram/dose powder 238 g PO ONCE Qty: 238 0RF Rx Instructions: take per colonoscopy instructions No Action topiramate 50 mg tablet PO ONCE Patient Comments: TAKE ONE TABLET BY MOUTH EVERY DAY Discharge Instructions Additional Instructions: DSU Colonoscopy Post- Op Instructions Instructions for Everyone who is given Anesthesia: For your safety, please do the following for the next twenty-four (24) hours: *Do Not operate a motor vehicle (car, truck, motorcycle, etc.) *Do Not drink alcoholic beverages or use any recreational drugs for the first 24 hours or while taking pain medications. The medications in your body may have a reaction that can be dangerous. *Do Not make any important decisions or sign any important papers. Findings:external hemorrhoids Follow up: Repeat colonoscopy in 10 yrs time 1. No lifting over 20 pounds or strenuous activity for the first 24 hours after your procedure. After 24 hours there are no restrictions on your activity but you may feel fatigued for a few days. 2. After you arrive home you may have a light meal and return to your normal diet as you can tolerate it without feeling sick to your stomach. 3. You may have a bloated, gaseous feeling in your belly (abdomen) after a colonoscopy. Passing gas and belching will help. Walking or lying down on your left side with your knees flexed may relieve the discomfort. Call the office at [phone] (Office) or [phone] (Hospital) right away if you notice any of the following: a.Vomiting of blood or ?coffee ground stools?. b.Rectal bleeding 1Tbsp, blood clots or continuous bleeding. c.Severe belly (abdominal) pain. d.A hard distended belly (abdomen) and an inability to pass gas. 4. Please don?t expect to have a normal BM (bowel movement) for 2-3 days after your procedure. 5. If there are questions regarding the findings of your procedure, please contact your doctor 6. If you are unable to contact your doctor with a problem, contact the hospital at [phone]. 7. Continue all your regular medications unless directed otherwise. I understand the above instructions and have no questions. Signature of Patient or Adult Escort Name of Responsible Adult Escort Signature of Nurse Date/Time Stand Alone Forms: Anesthesia Discharge Inst., Giovanna Barajsa (DSU) Activity:: see above Diet:: see above Discharge Orders Discharge Orders: Discharge Order (Routine); Ordered 10/17/24 Ordered By: Heidy Theodore DS: Diagnosis Discharge Diagnosis (1) BMI 40.0-44.9, adult: Status: Acute (2) Obesity: Status: Chronic (3) Screening for malignant neoplasm of colon performed: Status: Acute Asessment and Plan: The patient is seen and examined after their colonoscopy.? The patient has been able to pass gas.? They are not having abdominal pain.? They have been able to tolerate liquids and a snack.? They do not have any nausea or vomiting.? They are not having any chest pain or shortness of breath.??? They are not having any rectal bleeding. Their vital signs have been stable-see nursing notes. We discussed findings during their colonoscopy, and any biopsies that were done/polyps that were removed. The patient will be sent a letter with any biopsy results, and when to repeat the colonoscopy.-see discharge instructions. Patient was given explicit instructions to follow-up regarding colonoscopy-refer to discharge instructions.? We reviewed resumption of medications. Patient verbalized understanding and discharged in stable and satisfactory condition- See nursing notes.
[2024-10-17 08:13] VITALS: BP 109/84; PULSE 94; RESP 16; TEMP 36.4; O2SAT 96
[2024-10-17] MEDS: Lactated Ringers 1,000 ML 80 ML IV (08:59)
--- NOTE | 2024-10-17 09:02 | W.ANESPRE ---
General Info Date of Service Date Performed: 10/17/24 Height: 5 ft 3 in Weight: 82.1 kg Body Mass Index (BMI): 32.1 Surgical Procedure: Operation Date: 10/17/24 09:05 Proposed Procedure Side Surgeon p Colonoscopy Heidy Theodore, Actual Procedure Side Surgeon p Colonoscopy Not Applicable Heidy Theodore, Pre-Op Diagnosis Post-Op Diagnosis Colon cancer screening: Bowel changes Meds Allergies and Home Medications Allergies Allergy/AdvReac Type Severity Reaction Status Date / Time Sulfa (Sulfonamide Allergy Intermediate RASH Verified 10/17/24 08:21 Antibiotics) Home Medication ?Medication ?Instructions ?Recorded acetaminophen 500 mg tablet (Mapap 1,000 mg (2 x 500 mg) PO Q8H PRN 05/11/17 Extra Strength) PRN ##0 gabapentin 100 mg capsule 100 mg PO DAILY 05/11/17 loratadine-pseudoephedrine ER 10 1 ea PO PRN PRN 04/14/18 mg-240 mg tablet,extended [id number] (Claritin-D 24 Hour) ibuprofen 600 mg tablet 600 mg PO Q6H PRN 05/25/19 trazodone 50 mg tablet 150 mg PO QHS PRN 08/24/23 acetylcysteine 600 mg capsule (NAC) 1,200 mg PO BID 09/13/24 topiramate 50 mg tablet mg PO ONCE 10/17/24 Current Visit Medications: Current Medications Generic Name Dose Route Start Last Admin Trade Name Freq PRN Reason Stop Dose Admin Hyoscyamine Sulfate 0.125 mg 10/17/24 03:25 Hyoscyamine 0.125 Mg Sl/Oral/Chew SL 11/16/24 03:24 DIRECTED PRN Ringer's Solution 1,000 mls @ 80 mls/hr 10/17/24 08:50 10/17/24 08:59 IV 11/16/24 08:49 80 mls/hr INFUSION MONICA Administration IV Miscellaneous Supplies 1 each 10/17/24 06:00 Iv Access IV 10/17/24 23:59 DIRECTED MONICA Ondansetron HCl 4 mg 10/17/24 03:25 Ondansetron 4 Mg/2 Ml Vial IVP 11/16/24 03:24 Q4H PRN PRN Nausea / Vomiting Sodium Chloride 0 ml 10/17/24 06:00 Normal Saline Flush 10 Ml Syr IV 10/17/24 23:59 PRN PRN Sodium Chloride 0 ml 10/17/24 06:00 Normal Saline 10 Ml Vial IJ 10/17/24 23:59 DIRECTED PRN Sterile Water 0 ml 10/17/24 06:00 Water,Injection,Sterile 10 Ml Vial IJ 10/17/24 23:59 DIRECTED PRN PFSH Active Problems Active Problems: Problem Status Onset Code Screening for malignant neoplasm of colon performed Acute Z12.11 Urinary incontinence Acute R32 Insomnia Acute G47.00 Obesity Chronic E66.9 Fatigue Acute 04/04/14 R53.83 Surveillance of intrauterine contraceptive device Acute 04/21/12 Z30.431 Postnasal drip Acute 03/03/17 R09.82 IUD surveillance Acute 04/21/12 Z30.431 Hair loss Acute 04/04/14 L65.9 Encounter for insertion of intrauterine contraceptive device Acute 07/04/14 Z30.430 Encounter for insertion of intrauterine contraceptive device Acute 07/04/14 Z30.430 Decreased libido Acute 04/04/14 R68.82 Chronic rhinitis Acute 03/03/17 J31.0 BMI 40.0-44.9, adult Acute 12/05/15 Z68.41 Anxiety associated with depression Acute 12/05/15 F41.8 Medical History Medical History Bowel movement symptom Lung nodules Pneumonia Bronchospasm, acute Vitamin D deficiency Pneumonia 05/19/2017 admitted for inpatient antibiotics ?48 hours. Migraine Depression Anxiety Surgical History Surgical History Ligation of fallopian tube (09/16/17) bilateral salpingectomy. section X 2 Tobacco Smoking/Tobacco Use Status: Former Tobacco Use Alcohol Alcohol Intake: current Alcohol intake frequency: a few times a month Substance Use Substance use: Rarely Substance use type: marijuana Vital Signs and Lab Results Vital Signs Most Recent Vital Signs in EMR: Most Recent Vital Signs Temp Pulse Resp BP Pulse Ox 36.4 C L 94 H 16 109/84 96 10/17/24 08:13 10/17/24 08:13 10/17/24 08:13 10/17/24 08:13 10/17/24 08:13 Lab Results Blood Type / Crossmatch: No Data to Display Complete Blood Count: No Data to Display Complete Metabolic Panel: No Data to Display Liver Function Panel: No Data to Display Coagulation Panel: No Data to Display Cardiac Panel: No Data to Display Arterial Blood Gas: No Data to Display Venous Blood Gas: No Data to Display Pancreas Panel: No Data to Display Thyroid Panel: No Data to Display Infectious Disease: HIV (1&2) Ag and Ab, 4th Generation Negative (Negative) 10/09/24 15:59 Syphilis Serology Negative (Negative) 10/09/24 15:59 Neisseria gonorrhoeae DNA Probe Negative (Negative) 10/10/24 08:45 Blood Cultures: No Data to Display Toxicology Panel: No Data to Display Panel: No Data to Display Anesthesia Assessment and Plan Anesthesia History Personal History: No History of Anesthesia Complications Family History: No Family History of Anesthesia Complications Exercise Tolerance Exercise Tolerance: Metabolic Equivalents>4 Pertinent Negatives Pertinent Negatives: No Symptoms of GERD (takes Pepcid) Cardiac & Pulmonary Exam Cardiac Exam: Normal S1/S2 Heart Sounds Pulmonary Exam: Clear Bilateral Breath Sounds Implantable Cardiac Device Does patient have a Pacemaker or an ICD?: No Airway Exam Known Difficult Airway: No Mallampati Class: 2 Mouth Opening: Normal (> 3cm) Thyromental Distance: Greater than 3 cm Neck Range of Motion: Full ROM Neck Circumference: Normal Teeth Condition: Normal Dentition ASA Classification ASA Score: ASA 2 Emergency Case?: No NPO Status NPO Status: NPO Clears >2 hours, Solids >8 hours Status Status: Negative HCG (urine POC) Anesthesia Plan Resuscitation Status: Full Code Anesthesia Technique: General Anesthesia Airway Planned: Natural Airway Monitors Used: Standard Monitors
[2024-10-17 09:03] VITALS: BMI 32.1
[2024-10-17 10:18] VITALS: BP 102/71; PULSE 85; RESP 16; TEMP 36.2; O2SAT 98
--- NOTE | 2024-10-17 10:22 | W.ANESPOSTOP ---
Postoperative Evaluation Date, Time and Location Date Performed: 10/17/24 Time Performed: 10:22 Patient Location: Day Surgery Unit Vital Signs Most Recent Imported Vital Signs: Most Recent Vital Signs Temp Pulse Resp BP Pulse Ox 36.2 C L 85 16 102/71 98 10/17/24 10:18 10/17/24 10:18 10/17/24 10:18 10/17/24 10:18 10/17/24 10:18 Pain Score Most Recent Pain Score: Most Recent Pain Score Pain Level 0 10/17/24 10:18 Assessment Mental Status: Awake (Alert & Oriented to Patient Baseline) Airway and Respiratory Function: Patent airway with normal (patient baseline) respiratory exam Cardiovascular Function: Hemodynamically Stable Hydration Status: Adequately Hydrated Nausea & Vomiting: No Nausea or Vomiting Pain: Pt. Denies Any Pain Peripheral Nerve Block: Patient did not receive a nerve block
[2024-10-17 10:52] VITALS: BP 101/76; PULSE 67; RESP 16; TEMP 36.2; O2SAT 100
== END 2024-10-17 11:09 | disposition home or self-care (01) ==
LOC: SUR 08:00
PROVIDERS: PCP Family Medicine; Visit Provider Surgery
PROC: 0DJD8ZZ Inspection of Lower Intestinal Tract, Via Natural or Artificial Opening Endoscopic (ICD-10-PCS; CPT 45378; principal; 2024-10-17 09:00)
DX: Z12.11 Encounter for screening for malignant neoplasm of colon (principal); Z80.0 Family history of malignant neoplasm of digestive organs; K64.4 Residual hemorrhoidal skin tags; Z03.89 Encounter for observation for other suspected diseases and conditions ruled out; E55.9 Vitamin D deficiency, unspecified; Z68.32 Body mass index [BMI] 32.0-32.9, adult; E66.9 Obesity, unspecified; F41.9 Anxiety disorder, unspecified; F32.A Depression, unspecified
CPT/HCPCS: 45378; J2704

== ENCOUNTER 2024-10-28 20:24 | Outpatient (REF) | payer MEDICAID, SELFPAY ==
--- OUTSIDE RECORDS SUMMARY | 2024-10-28 20:26 | XMS_ITS | Encounter Summary ---
Author Organization [facility] Address [address] [place] [address] Care Team Providers Care Funeral Professional Name Role Phone Earl Nash MD Primary Care Provider [phone] Encounter Details Date Type Department Care Team (Late st Contact Info) Description 12/26/2020 Lab Requisition [facility] Pathology & Laboratory Medicine - [address] [address] Outr Resulting Lab, Provider Social History Tobacco [...] MICROBIOLOGY - GENER AL ORDERABLES Final Result [facility] [address] [place] [address] * COVID-19 TESTING (12/26/2020 10:40 EDT) COVID-19 rt-PCR Result Negative Negative 12/27/2020 14:44 EDT [facility] Comment: This test [...] developed and its performance characteristics determined by [facility]. It has not been cleared or [...] testing. This test is based on the [facility] COVID-19 Emergency Use Authorization (EUA) assay, with minor modification as defined by the FDA Performed on the Infopia 7 Pro RT-PCR System. Performing Lab [facility] Lab 12/27/2020 14:44 EDT [facility] Swab 12/26/2020 10:4 0 EDT 12/26/2020 20:42 EDT Provider Outr Resulting Lab MICROBIOLOGY - GENER AL ORDERABLES Final Result [facility] [address] [place] [address] documented in this encounter Visit Diagnoses Not on filedocumented in this encounter Care Teams Funeral Professional Relationship Specialty Start Date End Date Earl Nash MD [address] [place] [address] PCP - General 01/25/13 documented as of this encounter
--- OUTSIDE RECORDS SUMMARY | 2024-10-28 20:26 | XMS_ITS | Encounter Summary ---
Author Organization [facility] Address [address] [place] [address] Care Team Providers Care Benefits Counselor Name Role Phone Earl Nash MD Primary Care Provider [phone] Encounter Details Date Type Department Care Team (Late st Contact Info) Description 10/10/2024 Lab Requisition [facility] Pathology & Laboratory Medicine - [address] [address] Outr Resulting Lab, Provider Social History Tobacco [...] 4th Generation Negative Negative 10/10/2024 19:10 EST [facility] Comment:If acute HIV-1 infec tion is suspected in a high risk patient, submit plasma specimen for HIV-1 RNA quantitation test. Blood VENOUS BLOOD / Unknown 10/09/2024 15:59 EST 10/10/2024 17:01 EST Narrative [facility] - 10/10/2024 19:10 EST Fourth Generation assay performed on the Siemens [employer] XPT. us Provider Outr Resulting Lab IMMUNOLOGY AND SEROL OGY ORDERABLES Final Result [facility] [address] [place] [address] documented in this encounter Visit Diagnoses Not on filedocumented in this encounter Care Teams Benefits Counselor Relationship Specialty Start Date End Date Earl Nash MD [address] [place] [address] PCP - General 01/25/13 documented as of this encounter
--- OUTSIDE RECORDS SUMMARY | 2024-10-28 20:26 | XMS_ITS | Encounter Summary ---
Author Organization [facility] Address [address] [place] [address] Care Team Providers Care Tube Sizer And Cutter Operator Name Role Phone Earl Nash MD Primary Care Provider [phone] Encounter Details Date Type Department Care Team (Latest Contact Info) Description 09/16/2017 13:11 EST - 09/16/2017 23:59 EST Hospital Encounter [address] [address] Unknown, Provider, Discharge Disposition: Home or Self [...] Code Departure Means Destination Home or Self Prison documented in this encounter Plan of Treatment Not on file documented as of this encounter Visit Diagnoses Not on filedocumented in this encounter Care Teams Tube Sizer And Cutter Operator Relationship Specialty Start Date End Date Earl Nash MD [address] [place] [address] PCP - General 01/25/13 documented as of this encounter
--- OUTSIDE RECORDS SUMMARY | 2024-10-28 20:26 | XMS_ITS | Clinical Summary ---
Author Organization [facility] Address [address] [place] [address] Care Team Providers Care Java Scala Developer Name Role Phone Earl Nash MD Primary Care Provider [phone] Encounters Date Type Department Care Team Description 10/11/2024 Lab Requisition [facility] Pathology & Laboratory [address] [address] Outr Resulting Lab, Provider 10/10/2024 Lab Requisition [facility] Pathology & Laboratory [facility] [address] [place] [address] Outr Resulting Lab, Provider 10/10/2024 Lab Requisition [facility] Pathology Laboratory [facility] [address] [place] [address] Outr Resulting Lab, Provider from Last 3 [...] Procedure Name Priority Date/Time Associated Diagnosis Comments CHLAMYDIA/N. GONORRHOEAE AMPLIFIED NUCLEIC ACID Routine 10/10/2024 8:45 EST SYPHILIS SEROLOGY Routine 10/09/2024 15: 59 EST HIV 1/2 ANTIGEN AND ANTIBODY, 4TH GENERATION Routine 10/09/2024 15:59 EST from Last 3 Months Results * CHLAMYDIA/N. GONORRHOEAE AMPLIFIED NUCLEIC ACID (10/10/2024 8:45 EST) Neisseria gonorrhoeae Result Negative Negative 10/12/2024 12:05 EST [facility] Chlamydia trachomatis Result Negative Negative 10/12/2024 12:05 EST [facility] Urine URINE / Unknown 10/10/2024 8 :45 EST 10/11/2024 18:36 EST Narrative [facility] - 10/12/2024 12:05 EST A first catch urine specimen is acceptable for detection of Gonorrhea and Chlamydia, but might detect up to 10% fewer infections when compared with vaginal swab samples. us Provider Outr Resulting Lab MICROBIOLOGY - GENER AL ORDERABLES Final Result [facility] [address] [place] [address] * SYPHILIS SEROLOGY (10/09/2024 15:59 EST) Syphilis Serology Negative Negative 10/11/2024 10:30 EST [facility] Blood VENOUS BLOOD / Unknown 10/09/2024 15:59 EST 10/10/2024 17:01 EST us Provider Outr Resulting Lab IMMUNOLOGY AND SEROL OGY ORDERABLES Final Result Performing Organization Address City/[facility]/ZIP Co de Phone Number [facility] [address] [place] [address] * HIV 1/2 ANTIGEN AND ANTIBODY, 4TH GENERATION (10/09/2024 15:59 EST) HIV 1 and 2 Antibody/p24 Antigen, 4th Generation Negative Negative 10/10/2024 19:10 EST [facility] Comment:If acute HIV-1 infec tion is suspected in a high risk patient, submit plasma specimen for HIV-1 RNA quantitation test. Blood VENOUS BLOOD / Unknown 10/09/2024 15:59 EST 10/10/2024 17:01 EST Narrative [facility] - 10/10/2024 19:10 EST Fourth Generation assay performed on the Siemens [employer] XPT. us Provider Outr Resulting Lab IMMUNOLOGY AND SEROL OGY ORDERABLES Final Result [facility] [address] [place] [address] from Last 3 Months Insurance * Guarantor: Junie Denny Account Type Relation to Patient Date of Phone Billing Address Personal/Family Self 1980 [phone] (Work) [address] [place] [address] [place] Care Teams Java Scala Developer Relationship Specialty Start Date End Date Earl Nash MD [address] [place] [address] PCP - General 01/25/13
--- OUTSIDE RECORDS SUMMARY | 2024-10-28 20:26 | XMS_ITS | Encounter Summary ---
Author Organization [facility] Address [address] [place] [address] Care Team Providers Care Outbound Telemarketer Name Role Phone Earl Nash MD Primary Care Provider [phone] Encounter Details Date Type Department Care Team (Late st Contact Info) Description 10/11/2024 Lab Requisition [facility] Pathology & Laboratory Medicine - [address] [address] Outr Resulting Lab, Provider Social History Tobacco [...] AMPLIFIED NUCLEIC ACID Routine 10/10/2024 8:45 EST documented in this encounter Results * CHLAMYDIA/N. GONORRHOEAE AMPLIFIED NUCLEIC ACID (10/10/2024 8:45 EST) Neisseria gonorrhoeae Result Negative Negative 10/12/2024 12:05 EST [facility] Chlamydia trachomatis Result Negative Negative 10/12/2024 12:05 EST [facility] Urine URINE / Unknown 10/10/2024 8 :45 EST 10/11/2024 18:36 EST Narrative [facility] - 10/12/2024 12:05 EST A first catch urine specimen is acceptable for detection of Gonorrhea and Chlamydia, but might detect up to 10% fewer infections when compared with vaginal swab samples. us Provider Outr Resulting Lab MICROBIOLOGY - GENER AL ORDERABLES Final Result [facility] [address] [place] [phone] documented in this encounter Visit Diagnoses Not on filedocumented in this encounter Care Teams Outbound Telemarketer Relationship Specialty Start Date End Date Earl Nash MD [address] [place] [address] PCP - General 01/25/13 documented as of this encounter
--- OUTSIDE RECORDS SUMMARY | 2024-10-28 20:26 | XMS_ITS | Clinical Summary ---
Author Organization [facility] [place] [address] Care Team Providers Care Paper Mill Manager Name Role Phone Earl Nash MD Primary Care Provider [phone] Allergies Active Allergy Reactions Criticality Noted Date [...] - Influenza standard series) 06/04/2024 Care Teams Paper Mill Manager Relationship Specialty Start Date End Date Earl Nash MD [address] [place] [address] PCP - General 01/18/13
--- OUTSIDE RECORDS SUMMARY | 2024-10-28 20:26 | XMS_ITS | Encounter Summary ---
Author Organization [facility] [place] [address] Care Team Providers Care Pre Sales Technical Engineer Name Role Phone Earl Nash MD Primary Care Provider [phone] Reason for Visit * Reason Comments Advice Only abdominoplasty Encounter Details Date Type Department Care Team (Late st Contact Info) Description 02/06/2013 1:50 PM EDT Office [place] [phone] Cayetano Melissa MD [facility] [place] [address] Abdominal pannus (Primary Dx) Discharge Disposition: Home [...] unlisted August 2011 dental implant ROS: GI, /DIRECTOR TELEVISION NEWS, Psych, Card, Pulm, Endo, Heme, Immun, Neuro: [...] Elective Coordinated with: None Procedure: Abdominoplasty CPT: 80610 Surgical site: Abdomen Side: N/a Anesthesia: General [...] adiposity documented in this encounter Care Teams Pre Sales Technical Engineer Relationship Specialty Start Date End Date Earl Nash MD [address] [place] [address] PCP - General 01/18/13 documented as of this encounter
--- OUTSIDE RECORDS SUMMARY | 2024-10-28 20:26 | XMS_ITS | Encounter Summary ---
Author Organization [facility] Address [address] [place] [address] Care Team Providers Care Tape Deck Installer Name Role Phone Earl Nash MD Primary Care Provider [phone] Encounter Details Date Type Department Care Team (Late st Contact Info) Description 10/10/2024 Lab Requisition [facility] Pathology & Laboratory Medicine - [address] [address] Outr Resulting Lab, Provider Social History Tobacco [...] Procedure Name Priority Date/Time Associated Diagnosis Comments SYPHILIS SEROLOGY Routine 10/09/2024 15: 59 EST documented in this encounter Results * SYPHILIS SEROLOGY (10/09/2024 15:59 EST) Syphilis Serology Negative Negative 10/11/2024 10:30 EST [facility] Blood VENOUS BLOOD / Unknown 10/09/2024 15:59 EST 10/10/2024 17:01 EST us Provider Outr Resulting Lab IMMUNOLOGY AND SEROL OGY ORDERABLES Final Result [facility] [address] [place] [address] documented in this encounter Visit Diagnoses Not on filedocumented in this encounter Care Teams Tape Deck Installer Relationship Specialty Start Date End Date Earl Nash MD [address] [place] [address] PCP - General 01/25/13 documented as of this encounter
--- OUTSIDE RECORDS SUMMARY | 2024-10-28 20:26 | XMS_ITS | Encounter Summary ---
Author Organization [facility] Address [address] [place] [address] Care Team Providers Care Program Management Analyst Name Role Phone Earl Nash MD Primary Care Provider [phone] Encounter Details Date Type Department Care Team (Late st Contact Info) Description 06/08/2019 Results Only [facility] [phone] Gabriele Motley MD [address] [place] [phone] Social History Tobacco Use Types Packs/Day [...] LUIS EDUARDO ADAIR ? Accession #: ? [id number] ? : ? 1980 (Age: 38) ??F [...] types 16,18,31,33,35, 39,45,51,52,56,58, 59,66, and 68 by parts counterperson mediated amplification. Comments Document reviewed and electronically signed by: ? System Interface ? Report date: 06/16/2019 By the signature above, the attending physician certifies that he/she has personally conducted a gross and/or microscopic examination of the described specimens and rendered or confirmed the above diagnosis. End of Report [facility] 06/08/2019 06/12/2019 us Gabriele Motley MD PATHOLOGY ORDERABLES Final Res ult [facility] [address] [place] [address] documented in this encounter Visit Diagnoses Not on filedocumented in this encounter Care Teams Program Management Analyst Relationship Specialty Start Date End Date Earl Nash MD [address] [place] [address] PCP - General 01/25/13 documented as of this encounter
--- OUTSIDE RECORDS SUMMARY | 2024-10-28 20:26 | XMS_ITS | Encounter Summary ---
Author Organization [facility] Address [address] [place] [address] Care Team Providers Care Build Master Name Role Phone Earl Nash MD Primary Care Provider [phone] Encounter Details Date Type Department Care Team (Late st Contact Info) Description 02/19/2021 Lab Requisition [facility] Pathology & Laboratory Medicine - [address] [address] Outr Resulting Lab, Provider Social History Tobacco [...] AL ORDERABLES Final Result Performing Organization Address City/State/[facility] Co de Phone Number [facility] [address] [place] [address] * COVID-19 TESTING (02/19/2021 9:58 EDT) COVID-19 rt-PCR Result Negative Negative 02/20/2021 15:50 EDT [facility] Comment: This test has [...] developed and its performance characteristics determined by [facility]. It has not been cleared or approved [...] testing. This test is based on the [facility] COVID-19 Emergency Use Authorization (EUA) assay, with minor modification as defined by the FDA Performed on the [employer] 7 Flex RT-PCR System. Performing Lab [facility] Lab 02/20/2021 15:50 EDT [facility] Swab 02/19/2021 9:58 EDT 02/19/2021 15:32 EDT Provider Outr Resulting Lab MICROBIOLOGY - GENER AL ORDERABLES Final Result [facility] [address] [place] [address] documented in this encounter Visit Diagnoses Not on filedocumented in this encounter Care Teams Build Master Relationship Specialty Start Date End Date Earl Nash MD [address] [place] [address] PCP - General 01/25/13 documented as of this encounter
--- OUTSIDE RECORDS SUMMARY | 2024-10-28 20:26 | XMS_ITS | Referral Summary ---
Author Organization [facility] Address [address] [place] [address] Care Team Providers Care Tune Up Mechanic Name Role Phone Earl Nash MD Primary Care Provider [phone] Encounters Date Type Department Care Team Description 10/11/2024 Lab Requisition [facility] Pathology & Laboratory [address] [address] Outr Resulting Lab, Provider 10/10/2024 Lab Requisition [facility] Pathology & Laboratory [facility] [address] [place] [address] Outr Resulting Lab, Provider 10/10/2024 Lab Requisition [facility] Pathology Laboratory [facility] [address] [place] [address] Outr Resulting Lab, Provider from Last 3 [...] gonorrhoeae Result Negative Negative 10/12/2024 12:05 EST [facility] Chlamydia trachomatis Result Negative Negative 10/12/2024 12:05 EST [facility] Urine URINE / Unknown 10/10/2024 8 :45 EST 10/11/2024 18:36 EST Narrative [facility] - 10/12/2024 12:05 EST A first catch urine specimen is acceptable for detection of Gonorrhea and Chlamydia, but might detect up to 10% fewer infections when compared with vaginal swab samples. us Provider Outr Resulting Lab MICROBIOLOGY - GENER AL ORDERABLES Final Result Performing Organization Address City/[facility]/ZIP Co de Phone Number [facility] [address] [place] [address] * SYPHILIS SEROLOGY (10/09/2024 15:59 EST) Pathologist [facility] Syphilis Serology Negative Negative 10/11/2024 10:30 EST [facility] Blood VENOUS BLOOD / Unknown 10/09/2024 15:59 EST 10/10/2024 17:01 EST us Provider Outr Resulting Lab IMMUNOLOGY AND SEROL OGY ORDERABLES Final Result Performing Organization Address City/[facility]/ZIP Co de Phone Number [facility] [address] [place] [address] * HIV 1/2 ANTIGEN AND ANTIBODY, 4TH GENERATION (10/09/2024 15:59 EST) Pathologist [facility] HIV 1 and 2 Antibody/p24 Antigen, 4th Generation Negative Negative 10/10/2024 19:10 EST [facility] Comment:If acute HIV-1 infec tion is suspected in a high risk patient, submit plasma specimen for HIV-1 RNA quantitation test. Blood VENOUS BLOOD / Unknown 10/09/2024 15:59 EST 10/10/2024 17:01 EST Narrative [facility] - 10/10/2024 19:10 EST Fourth Generation assay performed on the Siemens iCopyrightaur XPT. us Provider Outr Resulting Lab IMMUNOLOGY AND SEROL OGY ORDERABLES Final Result [facility] [address] [place], [place] [address] from Last 3 Months Insurance * Guarantor: Junie Denny Account Type Relation to Patient Date of Phone Billing Address Personal/Family Self 1980 [phone] (Work) [address] [place] [phone] MEDICA[place] Care Teams Tune Up Mechanic Relationship Specialty Start Date End Date Earl Nash MD [address] [place] [address] PCP - General 01/25/13
--- OUTSIDE RECORDS SUMMARY | 2024-10-28 20:26 | XMS_ITS | Encounter Summary ---
Author Organization [facility] Address [address] [place] [address] Care Team Providers Care Certified Rehabilitation Counselor Name Role Phone Unavailable Primary Care Provider Unavailabl e Encounter Details Date Type Department Care Team (Late st Contact Info) Description 10/18/2009 Orders Only [facility] Laboratory Services - [facility] ([facility]) [address] [place], [place] [address] Rosemary Tran MD [address] [place] [address] Social History Tobacco Use Types Packs/Day Years [...] LUIS EDUARDO ADAIR ? Accession #: ? [id number] ? : ? 1980 (Age: 28) ??F [...] ORDERABLES Final Resu lt [facility] [address] [place] [address] documented in this encounter Visit Diagnoses Not on filedocumented in this encounter
--- OUTSIDE RECORDS SUMMARY | 2024-10-28 20:26 | XMS_ITS | Encounter Summary ---
Author Organization [facility] Address [address] [place] [address] Care Team Providers Care Assistant Field Hockey Coach Name Role Phone Unavailable Primary Care Provider Unavailabl e Encounter Details Date Type Department Care Team (Late st Contact Info) Description 02/23/2007 Results Only [facility] - [facility] [address] [place] [address] Checo Yee ARNP [address] [place] [address] Social History Tobacco Use Types Packs/Day Years [...] LUIS EDUARDO ADAIR ? Accession #: ? [id number] : ? 1980 (Age: 26) ??F ?Collect Date: ? 02/23/2007 Location: ? [facility] ? Receive Date: ? 02/25/2007 Provider: ?CHECO AMEZCUA Copy to: ? Specimen/Source: ?ThinPrep Pap Test, Vagina/Cervix/Endo cervix, processed on Seratis ThinPrep Imaging System, with manual evaluation Last [...] PATHOLOGY ORDERABLES Final Result [facility] [address] [place] [address] documented in this encounter Visit Diagnoses Not on filedocumented in this encounter
--- OUTSIDE RECORDS SUMMARY | 2024-10-28 20:26 | XMS_ITS | Encounter Summary ---
Author Organization [facility] Address [address] [place] [address] Care Team Providers Care Paper Cutting Machine Operator Name Role Phone Earl Nash MD Primary Care Provider Encounter Details Date Type Department Care Team (Late st Contact Info) Description 09/16/2017 Results Only [facility]- [facility] [phone] Alexis Wood MD [facility] [place], [place] [address] Social History Tobacco Use Types Packs/Day Years [...] LUIS EDUARDO ADAIR ? Accession #: ? [id number] ? : ? 1980 (Age: 36) ??F [...] pinpoint lumen. The entire fimbria and a employment program representative cross section are submitted in A1. B. ?Received in formalin labelled with proper patient identification (initials B, J) and #2 left fallopian tube is a fimbriated fallopian tube (3.7 cm in length and 0.5 cm in diameter). ??The serosal surface is smooth and cassidy-purple. ??Sectioning reveals a central pinpoint lumen. The entire fimbria and a employment program representative cross section are submitted in B1. VIKKI Hennessy (ASCP) 09/17/2017 2:45 PM End of Report [facility] 09/16/2017 20:5 4 EST 09/16/2017 20:54 EST us Alexis Wood MD PATHOLOGY ORDERABLES Final Res ult [facility] [address] [place] [address] documented in this encounter Visit Diagnoses Not on filedocumented in this encounter Care Teams Paper Cutting Machine Operator Relationship Specialty Start Date End Date Earl Nash MD [address] [place] [address] PCP - General 01/25/13 documented as of this encounter
--- OUTSIDE RECORDS SUMMARY | 2024-10-28 20:26 | XMS_ITS | Encounter Summary ---
Author Organization [facility] Address [address] [place] [address] Care Team Providers Care Produce Shipper Name Role Phone Unavailable Primary Care Provider Unavailabl e Encounter Details Date Type Department Care Team (Late st Contact Info) Description 02/26/[address] [facility] Laboratory Services - [facility] ([facility]) [address] [place], [place] [address] Annie Hein, [facility] [address] [place] [address] Social History Tobacco Use Types [...] LUIS EDUARDO ADAIR ? Accession #: ? [id number] ? : ? 1980 (Age: 30) ??F ?Collect Date: ? 02/26/2011 ? Location: ? [facility] ? Receive Date: ? 02/27/2011 ? Provider: ?ANNIE MICAH LINUX SYSTEM ADMINISTRATOR ? Copy to: ? Specimen/Source: ?Pap Test, [...] [facility] 02/26/2011 02/27/2011 us Annie Hein LINUX SYSTEM ADMINISTRATOR PATHOLOGY ORDERABLES Final R esult [facility] [address] [place] [address] documented in this encounter Visit Diagnoses Not on filedocumented in this encounter
--- OUTSIDE RECORDS SUMMARY | 2024-10-28 20:26 | XMS_ITS | Encounter Summary ---
Author Organization [facility] Address [address] [place] [address] Care Team Providers Care Gastroenterology Manager Name Role Phone Unavailable Primary Care Provider Unavailabl e Encounter Details Date Type Department Care Team (Late st Contact Info) Description 02/04/[address] [facility] Laboratory Services - [facility] ([facility] [address] [place], [place] [address] Rosemary Tran MD [address] [place] [address] Social History Tobacco Use Types Packs/Day Years [...] unformatted reports. ? Name: ? LUIS EDUARDO DAAIR ? Accession #: ? [id number] ? : ? 1980 (Age: 28) ??F [...] Final Resu lt [facility] [address] [place] [address] documented in this encounter Visit Diagnoses Not on filedocumented in this encounter
--- OUTSIDE RECORDS SUMMARY | 2024-10-28 20:26 | XMS_ITS | Encounter Summary ---
Author Organization [facility] Address [address] [place] [address] Care Team Providers Care Cloth Layer Name Role Phone Unavailable Primary Care Provider Unavailabl e Encounter Details Date Type Department Care Team (Late st Contact Info) Description 04/21/2012 Results Only [facility] Laboratory Services - [facility] ([facility]) [address] [place], [place] [address] Annie Hein, [facility] [address] [place] [phone] Social History Tobacco Use Types Packs/Day [...] LUIS EDUARDO ADAIR ? Accession #: ? [id number] : ? 1980 (Age: 31) ??F ?Collect Date: ? 04/21/2012 Location: ? [facility] ? Receive Date: ? 04/22/2012 Provider: ?ANNIE HEIN PST SUPERVISOR Copy to: ?BENNIE SHARP MD ? [...] Report [facility] 04/21/2012 04/22/2012 Annie Hein PST SUPERVISOR PATHOLOGY ORDERABLES Final R esult [facility] [address] [place] [address] documented in this encounter Visit Diagnoses Not on filedocumented in this encounter
--- OUTSIDE RECORDS SUMMARY | 2024-10-28 20:26 | XMS_ITS | Encounter Summary ---
Author Organization [facility] Address [address] [place] [address] Care Team Providers Care Business Data Analyst Name Role Phone Earl Nash MD Primary Care Provider [phone] Encounter Details Date Type Department Care Team (Late st Contact Info) Description 03/29/2014 Results Only [facility] Laboratory Services - [facility] ([facility]) [address] [place], [place] [address] Annie Hein, [facility] [address] [place] [phone] Social History Tobacco Use Types Packs/Day Years [...] LUIS EDUARDO ADAIR ? Accession #: ? [id number] ? : ? 1980 (Age: 33) ??F ?Collect Date: ? 03/29/2014 ? Location: ? [facility] ? Receive Date: ? 03/30/2014 ? Provider: ANNIE HEIN PLANNER CHIEF Copy to: EARL NASH MD ? Final [...] types 16,18,31,33,35, 39,45,51,52,56,58, 59,66, and 68 by cardiac cath lab radiology technologist mediated amplification. Comments Document reviewed and electronically signed by: ? System Interface ? Report date: 04/13/2014 By the signature above, the attending physician certifies that he/she has personally conducted a gross and/or microscopic examination of the described specimens and rendered or confirmed the above diagnosis. End of Report [facility] 03/29/2014 03/30/2014 us Annie Hein PLANNER CHIEF PATHOLOGY ORDERABLES Final R esult [facility] [address] [place] [address] documented in this encounter Visit Diagnoses Not on filedocumented in this encounter Care Teams Business Data Analyst Relationship Specialty Start Date End Date Earl Nash MD [address] [place] [address] PCP - General 01/25/13 documented as of this encounter
[2024-10-28 20:30] LABS: Bacteria Few HPF (Negative); C & S Indicated? No/Sq. Contamination; Crystals Many Amorphous HPF (Negative); Epithelial Cells Many HPF (Negative); Mucus Negative (Negative)
[2024-10-30 12:03] LABS: Chlamydia Result Negative (Negative); GC Result Negative (Negative)
== END 2024-10-28 20:25 | disposition home or self-care (01) ==
LOC: LBN 20:24
PROVIDERS: PCP Family Medicine; Visit Provider Physician Assistant Medical
DX: R30.0 Dysuria (principal); N30.01 Acute cystitis with hematuria
CPT/HCPCS: 87077; 87491; 87591; 81015; 87086; 87186; 87480; 87510; 87660

== ENCOUNTER 2024-10-30 01:46 | Outpatient (CLI) | payer MEDICAID, SELFPAY ==
--- NOTE | 2024-10-30 07:45 | DI.US_ITS ---
Exam(s) US PELVIS TRANSVAGINAL EXAM: US PELVIS TRANSVAGINAL CLINICAL HISTORY: anatomy,pelvic pain,r10.2 TECHNIQUE: Ultrasound of the pelvis was performed both transabdominal and transvaginal. COMPARISON: Prior abdominal pelvic CT scan of May 2019 was reviewed. FINDINGS: UTERUS: The uterus was noted to be retroflexed on the prior CT scan report Measures 12.4 cm length x 5.8 cm AP x 5.9 cm wide. There are no uterine fibroids. Endometrial thickness measures 3 mm. There is a small amount of fluid in the endometrial canal. There are also a few small cystic and hyp oechoic structures in the fundal region of the fundal region, average size 3-4 mm., these at the junc tion of the endometrium/myometrium. The myometrium appears mildly heterogeneous at this level. Rocky ot exclude possibility of adenomyosis. CERVIX: There are no obvious nabothian cysts. RIGHT OVARY: Measures 3.7 x 3.1 x 2.2 cm Contains small follicular cysts measuring up to 1.3 cm LEFT OVARY: Measures 3.1 x 2.9 x 3.9 cm Contains tiny sub cm follicular cysts. There are no hemorrhagic cysts nor solid lesions in the ovaries evident. There no extraovarian adnexal masses nor free fluid in the adnexal regions. CUL-DE-SAC: No free fluid evident. IMPRESSION: 1. In addition to a small amount of fluid in the endometrial canal there are few small 3-4 mm cystic an hyperechoic structures in the upper endometrium at junction with the myometrium, possibly signific ant. Possibility of adenomyosis. The transvaginal part of this examination was somewhat limited due to patient discomfort. 2. No abnormal ovarian findings. Largest follicular cyst measures 1.3 cm (right ovary). 3. No free fluid evident in the adnexal regions and cul-de-sac. DATA REPOSITORY:
== END 2024-10-30 02:06 ==
LOC: DI 01:46
PROVIDERS: PCP Family Medicine; Visit Provider Obstetrics & Gynecology
DX: R10.2 Pelvic and perineal pain (principal)
CPT/HCPCS: 76830; 76856

== ENCOUNTER 2024-11-07 15:23 | Outpatient (REF) | payer MEDICAID, SELFPAY ==
--- OUTSIDE RECORDS SUMMARY | 2024-11-07 16:03 | XMS_ITS | Encounter Summary ---
Author Organization [facility] Address [address] [place] [address] Care Team Providers Care Rn Mds Name Role Phone Unavailable Primary Care Provider Unavailabl e Encounter Details Date Type Department Care Team (Late st Contact Info) Description 04/21/2012 Results Only [facility] Laboratory Services - [facility] ([facility] [address] [place], [place] [address] Annie Hein, [facility] [address] [place] [phone] Social History Tobacco Use Types Packs/Day [...] LUIS EDUARDO ADAIR ? Accession #: ? [id number] : ? 1980 (Age: 31) ??F ?Collect Date: ? 04/21/2012 Location: ? [facility] ? Receive Date: ? 04/22/2012 Provider: ?ANNIE HEIN BICYCLE REPAIRER Copy to: ?BENNIE SHARP MD ? Specimen/Source: [...] Report [facility] 04/21/2012 04/22/2012 Annie Hein BICYCLE REPAIRER PATHOLOGY ORDERABLES Final R esult [facility] [address] [place] [address] documented in this encounter Visit Diagnoses Not on filedocumented in this encounter
--- OUTSIDE RECORDS SUMMARY | 2024-11-07 16:03 | XMS_ITS | Clinical Summary ---
Author Organization [facility] [place] [address] Care Team Providers Care Topology Teacher Name Role Phone Earl Nash MD Primary Care Provider [phone] Allergies Active Allergy Reactions Criticality Noted Date [...] - Influenza standard series) 06/04/2024 Care Teams Topology Teacher Relationship Specialty Start Date End Date Earl Nash MD [address] [place] [address] PCP - General 01/18/13
--- OUTSIDE RECORDS SUMMARY | 2024-11-07 16:03 | XMS_ITS | Clinical Summary ---
Author Organization [facility] Address [address] [place] [address] Care Team Providers Care Content Designer Name Role Phone Earl Nash MD Primary Care Provider [phone] Encounters Date Type Department Care Team Description 10/29/[address] [facility] Pathology & Laboratory [address] [address] Outr Resulting Lab, Provider 10/11/[address] [facility] Pathology & Laboratory [address] [address] Outr Resulting Lab, Provider 10/10/[address] [facility] Pathology Laboratory [address] [address] Outr Resulting Lab, Provider 10/10/[address] [facility] Pathology Laboratory [address] [address] Outr Resulting Lab, Provider from Last 3 [...] Comments CHLAMYDIA/N. GONORRHOEAE AMPLIFIED NUCLEIC ACID Routine 10/28/2024 11:35 EST CHLAMYDIA/N. GONORRHOEAE AMPLIFIED NUCLEIC ACID Routine 10/10/2024 8:45 EST SYPHILIS SEROLOGY Routine 10/09/2024 15: 59 EST HIV 1/2 ANTIGEN AND ANTIBODY, 4TH GENERATION Routine 10/09/2024 15:59 EST from Last 3 Months Results * CHLAMYDIA/N. GONORRHOEAE AMPLIFIED NUCLEIC ACID (10/28/2024 11:35 EST) Only the most recent of2 resultswithin the time period is included. Neisseria gonorrhoeae Result Negative Negative 10/30/2024 11:[address] [facility] Chlamydia trachomatis Result Negative Negative 10/30/2024 11:[address] [facility] Swab VAGINAL STRUCTURE / Unknown 10/28/2024 11:35 EST 10/29/2024 16:16 EST us Provider Outr Resulting Lab MICROBIOLOGY - GENER AL ORDERABLES Final Result Performing Organization Address City/[facility]/ZIP Co de Phone Number [facility] [address] [place] [address] * SYPHILIS SEROLOGY (10/09/2024 15:59 EST) Syphilis Serology Negative Negative 10/11/2024 10:[address] [facility] Blood VENOUS BLOOD / Unknown 10/09/2024 15:59 EST 10/10/2024 17:01 EST us Provider Outr Resulting Lab IMMUNOLOGY AND SEROL OGY ORDERABLES Final Result Performing Organization Address City/[facility]/ZIP Co de Phone Number [facility] [address] [place] [address] * HIV 1/2 ANTIGEN AND ANTIBODY, 4TH GENERATION (10/09/2024 15:59 EST) HIV 1 and 2 Antibody/p24 Antigen, 4th Generation Negative Negative 10/10/2024 19:[address] [facility] Comment:If acute HIV-1 infec tion is suspected in a high risk patient, submit plasma specimen for HIV-1 RNA quantitation test. Blood VENOUS BLOOD / Unknown 10/09/2024 15:59 EST 10/10/2024 17:[address] [facility] - 10/10/2024 19:10 EST Fourth Generation assay performed on the Siemens Rolocule Gamesaur XPT. us Provider Outr Resulting Lab IMMUNOLOGY AND SEROL OGY ORDERABLES Final Result [facility] [address] [place] [address] from Last 3 Months Insurance * Guarantor: Junie Denny Account Type Relation to Patient Date of Phone Billing Address Personal/Family Self 1980 [phone] (Work) [address] [place] [phone] [place] Care Teams Content Designer Relationship Specialty Start Date End Date Earl Nash MD [address] [place] [address] PCP - General 01/25/13
--- OUTSIDE RECORDS SUMMARY | 2024-11-07 16:03 | XMS_ITS | Encounter Summary ---
Author Organization [facility] Address [address] [place] [address] Care Team Providers Care Resident Hall Director Name Role Phone Earl Nash MD Primary Care Provider [phone] Encounter Details Date Type Department Care Team (Late st Contact Info) Description 10/29/2024 Lab Requisition [facility] Pathology & Laboratory Medicine - [address] [address] Outr Resulting Lab, Provider Social History Tobacco [...] AMPLIFIED NUCLEIC ACID Routine 10/28/2024 11:35 EST documented in this encounter Results * CHLAMYDIA/N. GONORRHOEAE AMPLIFIED NUCLEIC ACID (10/28/2024 11:35 EST) Neisseria gonorrhoeae Result Negative Negative 10/30/2024 11:58 EST [facility] Chlamydia trachomatis Result Negative Negative 10/30/2024 11:58 EST [facility] Swab VAGINAL STRUCTURE / Unknown 10/28/2024 11:35 EST 10/29/2024 16:16 EST us Provider Outr Resulting Lab MICROBIOLOGY - GENER AL ORDERABLES Final Result [facility] [address] [place], [place] [id number] documented in this encounter Visit Diagnoses Not on filedocumented in this encounter Care Teams Resident Hall Director Relationship Specialty Start Date End Date Earl Nash MD [address] [place] [address] PCP - General 01/25/13 documented as of this encounter
--- OUTSIDE RECORDS SUMMARY | 2024-11-07 16:03 | XMS_ITS | Encounter Summary ---
Author Organization [facility] Address [address] [place] [address] Care Team Providers Care Laundry Presser Name Role Phone Unavailable Primary Care Provider Unavailabl e Encounter Details Date Type Department Care Team (Late st Contact Info) Description 10/18/2009 Orders Only [facility] Laboratory Services - [facility] ([facility]) [address] [place], [place] [address] Rosemary Tran MD [address] [place] [address] Social History Tobacco Use Types Packs/Day Years [...] LUIS EDUARDO ADAIR ? Accession #: ? [id number] ? : ? 1980 (Age: 28) ??F [...] ORDERABLES Final Resu lt [facility] [address] [place] [address] documented in this encounter Visit Diagnoses Not on filedocumented in this encounter
--- OUTSIDE RECORDS SUMMARY | 2024-11-07 16:03 | XMS_ITS | Encounter Summary ---
Author Organization [facility] Address [address] [place] [address] Care Team Providers Care Monitor Car Operator Name Role Phone Earl Nash MD Primary Care Provider Encounter Details Date Type Department Care Team (Late st Contact Info) Description 06/08/2019 Results Only [facility] [phone] Gabriele Motley MD [address] [place] [phone] Social History Tobacco Use Types Packs/Day [...] LUIS EDUARDO ADAIR ? Accession #: ? [id number] ? : ? 1980 (Age: 38) ??F [...] types 16,18,31,33,35, 39,45,51,52,56,58, 59,66, and 68 by truck safety inspector mediated amplification. Comments Document reviewed and electronically signed by: ? System Interface ? Report date: 06/16/2019 By the signature above, the attending physician certifies that he/she has personally conducted a gross and/or microscopic examination of the described specimens and rendered or confirmed the above diagnosis. End of Report [facility] 06/08/2019 06/12/2019 us Gabriele Motley MD PATHOLOGY ORDERABLES Final Res ult [facility] [address] [place] [address] documented in this encounter Visit Diagnoses Not on filedocumented in this encounter Care Teams Monitor Car Operator Relationship Specialty Start Date End Date Earl Nash MD [address] [place] [address] PCP - General 01/25/13 documented as of this encounter
--- OUTSIDE RECORDS SUMMARY | 2024-11-07 16:03 | XMS_ITS | Encounter Summary ---
Author Organization [facility] Address [address] [place] [address] Care Team Providers Care Staff Development Educator Name Role Phone Earl Nash MD Primary Care Provider [phone] Encounter Details Date Type Department Care Team (Late st Contact Info) Description 10/11/2024 Lab Requisition [facility] Pathology & Laboratory Medicine - [address] [address] Outr Resulting Lab, Provider Social History Tobacco [...] gonorrhoeae Result Negative Negative 10/12/2024 12:05 EST [facility] Chlamydia trachomatis Result Negative Negative 10/12/2024 12:05 EST [facility] Urine URINE / Unknown 10/10/2024 8 :45 EST 10/11/2024 18:36 EST Narrative [facility] - 10/12/2024 12:05 EST A first catch urine specimen is acceptable for detection of Gonorrhea and Chlamydia, but might detect up to 10% fewer infections when compared with vaginal swab samples. us Provider Outr Resulting Lab MICROBIOLOGY - GENER AL ORDERABLES Final Result [facility] [address] [place] [id number] documented in this encounter Visit Diagnoses Not on filedocumented in this encounter Care Teams Staff Development Educator Relationship Specialty Start Date End Date Earl Nash MD [address] [place] [address] PCP - General 01/25/13 documented as of this encounter
--- OUTSIDE RECORDS SUMMARY | 2024-11-07 16:03 | XMS_ITS | Encounter Summary ---
Author Organization [facility] Address [address] [place] [address] Care Team Providers Care Radio Broadcaster Name Role Phone Earl Nash MD Primary Care Provider [phone] Encounter Details Date Type Department Care Team (Late st Contact Info) Description 10/10/2024 Lab Requisition [facility] Pathology & Laboratory Medicine - [address] [address] Outr Resulting Lab, Provider Social History Tobacco [...] 19:10 EST [facility] Comment:If acute HIV-1 infec tion is suspected in a high risk patient, submit plasma specimen for HIV-1 RNA quantitation test. Blood VENOUS BLOOD / Unknown 10/09/2024 15:59 EST 10/10/2024 17:01 EST Narrative [facility] - 10/10/2024 19:10 EST Fourth Generation assay performed on the Siemens Compound Timeaur XPT. us Provider Outr Resulting Lab IMMUNOLOGY AND SEROL OGY ORDERABLES Final Result [facility] [address] [place] [address] documented in this encounter Visit Diagnoses Not on filedocumented in this encounter Care Teams Radio Broadcaster Relationship Specialty Start Date End Date Earl Nash MD [address] [place] [address] PCP - General 01/25/13 documented as of this encounter
--- OUTSIDE RECORDS SUMMARY | 2024-11-07 16:03 | XMS_ITS | Encounter Summary ---
Author Organization [facility] Address [address] [place] [address] Care Team Providers Care Former Hand Name Role Phone Earl Nash MD Primary Care Provider [phone] Encounter Details Date Type Department Care Team (Latest Contact Info) Description 09/16/2017 13:11 EST - 09/16/2017 23:59 EST Hospital Encounter [address] [address] Unknown, Provider, Discharge Disposition: Home or Self [...] Code Departure Means Destination Home or Self Halfway documented in this encounter Plan of Treatment Not on file documented as of this encounter Visit Diagnoses Not on filedocumented in this encounter Care Teams Former Hand Relationship Specialty Start Date End Date Earl Nash MD [address] [place] [address] PCP - General 01/25/13 documented as of this encounter
--- OUTSIDE RECORDS SUMMARY | 2024-11-07 16:03 | XMS_ITS | Encounter Summary ---
Author Organization [facility] Address [address] [place] [address] Care Team Providers Care Tire Design Engineer Name Role Phone Earl Nash MD Primary Care Provider [phone] Encounter Details Date Type Department Care Team (Late st Contact Info) Description 10/10/2024 Lab Requisition [facility] Pathology & Laboratory Medicine - [address] [address] Outr Resulting Lab, Provider Social History Tobacco [...] Syphilis Serology Negative Negative 10/11/2024 10:30 EST [facility] Blood VENOUS BLOOD / Unknown 10/09/2024 15:59 EST 10/10/2024 17:01 EST us Provider Outr Resulting Lab IMMUNOLOGY AND SEROL OGY ORDERABLES Final Result [facility] [address] [place] [address] documented in this encounter Visit Diagnoses Not on filedocumented in this encounter Care Teams Tire Design Engineer Relationship Specialty Start Date End Date Earl Nash MD [address] [place] [address] PCP - General 01/25/13 documented as of this encounter
--- OUTSIDE RECORDS SUMMARY | 2024-11-07 16:03 | XMS_ITS | Encounter Summary ---
Author Organization [facility] Address [address] [place] [address] Care Team Providers Care Laborer Tree Tapping Name Role Phone Unavailable Primary Care Provider Unavailabl e Encounter Details Date Type Department Care Team (Late st Contact Info) Description 02/04/2009 Orders Only [facility] Laboratory Services - [facility] ([facility] [place] [address] [place], [place] [address] Rosemary Tran MD [address] [place] [address] Social History Tobacco Use Types Packs/Day Years [...] LUIS EDUARDO ADAIR ? Accession #: ? [id number] ? : ? 1980 (Age: 28) ??F [...] Final Resu lt [facility] [address] [place] [address] documented in this encounter Visit Diagnoses Not on filedocumented in this encounter
--- OUTSIDE RECORDS SUMMARY | 2024-11-07 16:03 | XMS_ITS | Encounter Summary ---
Author Organization [facility] Address [address] [place] [address] Care Team Providers Care Cable Splicer Assistant Name Role Phone Unavailable Primary Care Provider Unavailabl e Encounter Details Date Type Department Care Team (Late st Contact Info) Description 02/23/2007 Results Only [facility] [address] [place] [address] Checo Yee ARNP [address] [place] [address] Social History Tobacco Use Types Packs/Day Years [...] LUIS EDUARDO ADAIR ? Accession #: ? [id number] : ? 1980 (Age: 26) ??F ?Collect Date: ? 02/23/2007 Location: ? [facility] ? Receive Date: ? 02/25/2007 Provider: ?CHECO AMEZCUA Copy to: ? Specimen/Source: ?ThinPrep Pap Test, Vagina/Cervix/Endo cervix, processed on [employer] ThinPrep Imaging System, with manual evaluation Last [...] PATHOLOGY ORDERABLES Final Result [facility] [address] [place] [address] documented in this encounter Visit Diagnoses Not on filedocumented in this encounter
--- OUTSIDE RECORDS SUMMARY | 2024-11-07 16:03 | XMS_ITS | Encounter Summary ---
Author Organization [facility] [place] [address] Care Team Providers Care Weight Trainer Name Role Phone Earl Nash MD Primary Care Provider [phone] Reason for Visit * Reason Comments Advice Only abdominoplasty Encounter Details Date Type Department Care Team (Late st Contact Info) Description 02/06/2013 1:50 PM EDT Office [place] [phone] Cayetano Melissa MD [facility] [place] [address] Abdominal pannus (Primary Dx) Discharge Disposition: Home [...] unlisted August 2011 dental implant ROS: GI, /BUCKLE ASSEMBLER, Psych, Card, Pulm, Endo, Heme, Immun, Neuro: [...] Elective Coordinated with: None Procedure: Abdominoplasty CPT: 23942 Surgical site: Abdomen Side: N/a Anesthesia: General [...] adiposity documented in this encounter Care Teams Weight Trainer Relationship Specialty Start Date End Date Earl Nash MD [address] [place] [address] PCP - General 01/18/13 documented as of this encounter
--- OUTSIDE RECORDS SUMMARY | 2024-11-07 16:03 | XMS_ITS | Encounter Summary ---
Author Organization [facility] Address [address] [place] [address] Care Team Providers Care Medical Case Manager Name Role Phone Unavailable Primary Care Provider Unavailabl e Encounter Details Date Type Department Care Team (Late st Contact Info) Description 02/26/[address] [facility] Laboratory Services - [facility] ([facility] [address] [place], [place] [address] Annie Hein, [facility] [address] [place] [address] Social History Tobacco Use Types [...] LUIS EDUARDO ADAIR ? Accession #: ? [id number] ? : ? 1980 (Age: 30) ??F ?Collect Date: ? 02/26/2011 ? Location: ? [facility] ? Receive Date: ? 02/27/2011 ? Provider: ?ANNIE MICAH WAGE CONCILIATOR ? Copy to: ? Specimen/Source: ?Pap Test, [...] [facility] 02/26/2011 02/27/2011 us Annie Hein WAGE CONCILIATOR PATHOLOGY ORDERABLES Final R esult [facility] [address] [place] [address] documented in this encounter Visit Diagnoses Not on filedocumented in this encounter
--- OUTSIDE RECORDS SUMMARY | 2024-11-07 16:03 | XMS_ITS | Encounter Summary ---
Author Organization [facility] Address [address] [place] [address] Care Team Providers Care Chef Assistant Name Role Phone Earl Nash MD Primary Care Provider [phone] Encounter Details Date Type Department Care Team (Late st Contact Info) Description 03/29/2014 Results Only [facility] Laboratory Services - [facility] ([facility] [address] [place], [place] [address] Annie Hein, [facility] [address] [place] [phone] Social History Tobacco Use Types Packs/Day Years [...] LUIS EDUARDO ADAIR ? Accession #: ? [id number] ? : ? 1980 (Age: 33) ??F ?Collect Date: ? 03/29/2014 ? Location: ? [facility] ? Receive Date: ? 03/30/2014 ? Provider: ANNIE HEIN GENERAL PEDIATRICIAN Copy to: EARL NASH MD ? Final [...] types 16,18,31,33,35, 39,45,51,52,56,58, 59,66, and 68 by precision machinist mediated amplification. Comments Document reviewed and electronically signed by: ? System Interface ? Report date: 04/13/2014 By the signature above, the attending physician certifies that he/she has personally conducted a gross and/or microscopic examination of the described specimens and rendered or confirmed the above diagnosis. End of Report [facility] 03/29/2014 03/30/2014 us Annie Hein GENERAL PEDIATRICIAN PATHOLOGY ORDERABLES Final R esult [facility] [address] [place] [address] documented in this encounter Visit Diagnoses Not on filedocumented in this encounter Care Teams Chef Assistant Relationship Specialty Start Date End Date Earl Nash MD [address] [place] [address] PCP - General 01/25/13 documented as of this encounter
--- OUTSIDE RECORDS SUMMARY | 2024-11-07 16:03 | XMS_ITS | Encounter Summary ---
Author Organization [facility] Address [address] [place] [address] Care Team Providers Care Locomotive Crane Operator Name Role Phone Earl Nash MD Primary Care Provider Encounter Details Date Type Department Care Team (Late st Contact Info) Description 12/26/2020 Lab Requisition [facility] Pathology & Laboratory Medicine - [address] [address] Outr Resulting Lab, Provider Social History Tobacco [...] MICROBIOLOGY - GENER AL ORDERABLES Final Result [facility] [address] [place] [address] * COVID-19 TESTING (12/26/2020 10:40 EDT) COVID-19 rt-PCR Result Negative Negative 12/27/2020 14:44 EDT [facility] Comment: This test has not [...] developed and its performance characteristics determined by [facility]. It has not been cleared or [...] testing. This test is based on the [facility] COVID-19 Emergency Use Authorization (EUA) assay, with minor modification as defined by the FDA Performed on the [employer] 7 Pro RT-PCR System. Performing Lab [facility] Lab 12/27/2020 14:44 EDT [facility] Swab 12/26/2020 10:4 0 EDT 12/26/2020 20:42 EDT Provider Outr Resulting Lab MICROBIOLOGY - GENER AL ORDERABLES Final Result [facility] [address] [place] [address] documented in this encounter Visit Diagnoses Not on filedocumented in this encounter Care Teams Locomotive Crane Operator Relationship Specialty Start Date End Date Earl Nash MD [address] [place] [address] PCP - General 01/25/13 documented as of this encounter
--- OUTSIDE RECORDS SUMMARY | 2024-11-07 16:03 | XMS_ITS | Encounter Summary ---
Author Organization [facility] Address [address] [place] [address] Care Team Providers Care Kettle Worker Name Role Phone Earl Nash MD Primary Care Provider [phone] Encounter Details Date Type Department Care Team (Late st Contact Info) Description 02/19/2021 Lab Requisition [facility] Pathology & Laboratory Medicine - [address] [address] Outr Resulting Lab, Provider Social History Tobacco [...] AL ORDERABLES Final Result Performing Organization Address City/State/[facility] Co de Phone Number [facility] [address] [place] [address] * COVID-19 TESTING (02/19/2021 9:58 EDT) COVID-19 rt-PCR Result Negative Negative 02/20/2021 15:50 EDT [facility] [...] testing. This test is based on the [facility] COVID-19 Emergency Use Authorization (EUA) assay, with minor modification as defined by the FDA Performed on the [employer] 7 Flex RT-PCR System. Performing Lab [facility] Lab 02/20/2021 15:50 EDT [facility] Swab 02/19/2021 9:58 EDT 02/19/2021 15:32 EDT Provider Outr Resulting Lab MICROBIOLOGY - GENER AL ORDERABLES Final Result [facility] [address] [place] [address] documented in this encounter Visit Diagnoses Not on filedocumented in this encounter Care Teams Kettle Worker Relationship Specialty Start Date End Date Earl Nash MD [address] [place] [address] PCP - General 01/25/13 documented as of this encounter
--- OUTSIDE RECORDS SUMMARY | 2024-11-07 16:03 | XMS_ITS | Referral Summary ---
Author Organization [facility] Address [address] [place] [address] Care Team Providers Care Valver Name Role Phone Earl Nash MD Primary Care Provider Encounters Date Type Department Care Team Description 10/29/2024 Lab Requisition [facility] Pathology & Laboratory [address] [address] Outr Resulting Lab, Provider 10/11/2024 Lab Requisition [facility] Pathology & Laboratory [address] [address] Outr Resulting Lab, Provider 10/10/2024 Lab Requisition [facility] [address] [address] Outr Resulting Lab, Provider 10/10/2024 Lab Requisition [facility] Pathology Laboratory [address] [address] Outr Resulting Lab, Provider from Last 3 [...] gonorrhoeae Result Negative Negative 10/30/2024 11:58 EST [facility] Chlamydia trachomatis Result Negative Negative 10/30/2024 11:58 EST [facility] Swab VAGINAL STRUCTURE / Unknown 10/28/2024 11:35 EST 10/29/2024 16:16 EST us Provider Outr Resulting Lab MICROBIOLOGY - GENER AL ORDERABLES Final Result [facility] [address] [place] [address] * SYPHILIS SEROLOGY (10/09/2024 15:59 EST) Syphilis Serology Negative Negative 10/11/2024 10:30 EST [facility] Blood VENOUS BLOOD / Unknown 10/09/2024 15:59 EST 10/10/2024 17:01 EST us Provider Outr Resulting Lab IMMUNOLOGY AND SEROL OGY ORDERABLES Final Result [facility] [address] [place] [address] * HIV 1/2 ANTIGEN AND ANTIBODY, 4TH GENERATION (10/09/2024 15:59 EST) HIV 1 and 2 Antibody/p24 Antigen, 4th Generation Negative Negative 10/10/2024 19:10 EST [facility] Comment:If acute HIV-1 infec tion is suspected in a high risk patient, submit plasma specimen for HIV-1 RNA quantitation test. Blood VENOUS BLOOD / Unknown 10/09/2024 15:59 EST 10/10/2024 17:01 EST Narrative [facility] - 10/10/2024 19:10 EST Fourth Generation assay performed on the Siemens iPos[employer]ur XPT. us Provider Outr Resulting Lab IMMUNOLOGY AND SEROL OGY ORDERABLES Final Result [facility] [address] [place], [place] [id number] from Last 3 Months Insurance * Guarantor: Junie Denny Account Type Relation to Patient Date of Phone Billing Address Personal/Family Self 1980 [phone] (Work) [address] [place] [id number] MEDICAID [facility] Care Teams Valver Relationship Specialty Start Date End Date Earl Nash MD [address] [place] [address] PCP - General 01/25/13
--- OUTSIDE RECORDS SUMMARY | 2024-11-07 16:03 | XMS_ITS | Encounter Summary ---
Author Organization [facility] Address [address] [place] [address] Care Team Providers Care Hardwood Flooring Specialist Name Role Phone Earl Nash MD Primary Care Provider [phone] Encounter Details Date Type Department Care Team (Late st Contact Info) Description 09/16/2017 Results Only [facility] [phone] Alexis Wood MD [facility] [place], [place] [address] Social History Tobacco Use Types Packs/Day Years [...] LUIS EDUARDO ADAIR ? Accession #: ? [id number] ? : ? 1980 (Age: 36) ??F [...] pinpoint lumen. The entire fimbria and a truck sales representative cross section are submitted in A1. B. ?Received in formalin labelled with proper patient identification (initials B, J) and #2 left fallopian tube is a fimbriated fallopian tube (3.7 cm in length and 0.5 cm in diameter). ??The serosal surface is smooth and cassidy-purple. ??Sectioning reveals a central pinpoint lumen. The entire fimbria and a truck sales representative cross section are submitted in B1. VIKKI Hennessy (ASCP) 09/17/2017 2:45 PM End of Report [facility] 09/16/2017 20:5 4 EST 09/16/2017 20:54 EST us Alexis Wood MD PATHOLOGY ORDERABLES Final Res ult [facility] [address] [place] [address] documented in this encounter Visit Diagnoses Not on filedocumented in this encounter Care Teams Hardwood Flooring Specialist Relationship Specialty Start Date End Date Earl Nash MD [address] [place] [address] PCP - General 01/25/13 documented as of this encounter
== END 2024-11-07 15:24 | disposition home or self-care (01) ==
LOC: NCHCN 15:23
PROVIDERS: PCP Family Medicine; Visit Provider Nurse Practitioner Family
DX: N89.9 Noninflammatory disorder of vagina, unspecified (principal)
CPT/HCPCS: 87480; 87510; 87660

== ENCOUNTER 2024-12-15 15:56 | Outpatient (REF) | payer MEDICAID, SELFPAY ==
--- NOTE | 2024-12-15 14:30 | PAPFT_PTH ---
PATIENT: Junie Denny LOC: [facility]#:[id number] AGE/SX: 44/F ROOM: RE12/15/[address]: Laney Laurent : 1980 BED: DIS: 12/15/2024 SPEC #: [id number] RECD: 12/18/24 13:12 STATUS: RICHELLE REQ #: [id number] JUNIOR: 12/15/24 14:[address]: Laney Laurent DEPT: [facility] Cytology RECD BY: Christine Pretty ENTERED: 12/18/24 13:13 SP TYPE: PAPFT OTHR DR: Emperatriz Motley Tissues: 1 - CX/ENDOCX FOR PAP SMEARS Procedures: PAP THIN PREP/U[facility] Screening HPV DNA PROBE Comments: [id number] (HPV 16 & 18/45)
[2024-12-15 21:36] LABS: Bilirubin Negative (Negative); Blood Negative (Negative); Clarity Clear (Clear); Glucose Negative (Negative); Ketones Negative (Negative); Leukocyte Esterase Negative (Negative); Nitrite Negative (Negative); Specific Gravity >= 1.030 (1.005-1.025); Urobilinogen 0.2 mg/dL (Up to 0.2); pH 6.5 (5-8)
== END 2024-12-15 15:57 | disposition home or self-care (01) ==
LOC: NCHCN 15:56
PROVIDERS: PCP Family Medicine; Visit Provider Nurse Practitioner Family
DX: R10.2 Pelvic and perineal pain (principal); Z11.51 Encounter for screening for human papillomavirus (HPV); Z01.419 Encounter for gynecological examination (general) (routine) without abnormal findings
CPT/HCPCS: 88142; 81003; 87480; 87510; 87624; 87660

== ENCOUNTER 2025-01-19 12:38 | Outpatient (REF) | payer MEDICAID, SELFPAY ==
--- NOTE | 2025-01-19 11:37 | ENDO_PTH ---
PATIENT: Junie Denny LOC: [facility] U#:[id number] AGE/SX: 44/F ROOM: RE01/19/[address]: Bushra Brooks DO : 1980 BED: DIS: 01/19/2025 SPEC #: [id number] RECD: 01/19/25 13:00 STATUS: RICHELLE REQ #: [id number] JUNIOR: 01/19/25 11:[address]: Bushra Brooks DEPT: Surgical Specimen RECD BY: Christine Pretty ENTERED: 01/19/25 13:00 SP TYPE: Endo OTHR DR: Emperatriz Motley Tissues: 1 - ENDOCERVICAL BX/CURRETTE Procedures: GROSS AND MICRO LEVEL 4 Comments: [id number]
== END 2025-01-19 12:39 | disposition home or self-care (01) ==
LOC: LBN 12:38
PROVIDERS: PCP Family Medicine; Visit Provider Obstetrics & Gynecology
DX: N89.8 Other specified noninflammatory disorders of vagina (principal); R87.613 High grade squamous intraepithelial lesion on cytologic smear of cervix (HGSIL)
CPT/HCPCS: 88305; 87480; 87510; 87660

== ENCOUNTER 2025-02-12 04:29 | Outpatient (CLI) | payer MEDICAID, SELFPAY ==
[2025-02-12 07:27] LABS: Abs Immature Grans 0.02 10^3/uL (0.0-0.06); Absolute Basophil Count 0.07 10^3/uL (0.0-0.2); Absolute Eosinophil Count 0.21 10^3/uL (0.0-0.7); Absolute Lymphocyte Count 2.41 10^3/uL (1.2-3.4); Absolute Monocyte Count 0.56 10^3/uL (0.1-0.8); Absolute Neutrophil Count 5.59 10^3/uL (1.2-6.7); Basophils % 0.8 %; Eosinophils % 2.4 %; HCT 40.3 % (36.0-46.0); Immature Grans % 0.2 %; Lymphocytes % 27.2 %; MCH 31.2 pg (27.0-33.0); MCHC 34.7 % (32.0-36.0); MCV 90 fL (80-95); Monocytes % 6.3 %; Neutrophils % 63.1 %; Platelet Count 244 10^3/uL (130-400); RBC 4.49 10^6/uL (3.93-5.22); RDW 12.6 % (11.7-14.6); RDW-SD 41.1 fL; WBC 8.86 10^3/uL (4.4-10.8)
== END 2025-02-12 04:30 | disposition home or self-care (01) ==
LOC: LBO 04:29
PROVIDERS: PCP Family Medicine; Visit Provider Obstetrics & Gynecology
DX: Z01.818 Encounter for other preprocedural examination (principal)
CPT/HCPCS: 36415; 86850; 86900; 86901; 85025

== ENCOUNTER 2025-02-14 08:46 | Day surgery (SDC) | payer MEDICAID, SELFPAY ==
[2025-02-14 09:21] VITALS: BP 109/67; PULSE 64; RESP 16; TEMP 36.6; O2SAT 100
[2025-02-14] MEDS: Lactated Ringers 1,000 ML 125 ML IV (09:37)
--- NOTE | 2025-02-14 10:08 | W.ANESPRE ---
General Info Date of Service Date Performed: 02/14/25 Height: 5 ft 3 in Weight: 83.7 kg Body Mass Index (BMI): 32.6 Surgical Procedure: Operation Date: 02/14/25 10:25 Proposed Procedure Side Surgeon p Dilation & Curettage with Hysteroscopy DO ivonne Ramírez Insertion of IUD Placement- Elana Brooks DO Meds Allergies and Home Medications Allergies Allergy/AdvReac Type Severity Reaction Status Date / Time Sulfa (Sulfonamide Allergy Intermediate RASH Verified 02/14/25 09:17 Antibiotics) Home Medication ?Medication ?Instructions ?Recorded acetaminophen 500 mg tablet (Mapap 1,000 mg (2 x 500 mg) PO Q8H PRN 05/11/17 Extra Strength) PRN ##0 ibuprofen 600 mg tablet 600 mg PO Q6H PRN 05/25/19 acetylcysteine 600 mg capsule (NAC) 1,200 mg PO BID 09/13/24 topiramate 50 mg tablet 50 mg PO DAILY 10/17/24 nystatin-triamcinolone 100,000 1 applic topical BID #30 grams 01/19/25 unit/g-0.1 % topical cream Current Visit Medications: Current Medications Generic Name Dose Route Start Last Admin Trade Name Freq PRN Reason Stop Dose Admin Ringer's Solution 1,000 mls @ 125 mls/hr 02/14/25 06:00 02/14/25 09:37 IV 02/14/25 23:59 125 mls/hr INFUSION MONICA Administration IV Miscellaneous Supplies 1 each 02/14/25 06:00 Iv Access IV 02/14/25 23:59 DIRECTED MONICA Sodium Chloride 0 ml 02/14/25 06:00 Normal Saline Flush 10 Ml Syr IV 02/14/25 23:59 PRN PRN Sodium Chloride 0 ml 02/14/25 06:00 Normal Saline 10 Ml Vial IJ 02/14/25 23:59 DIRECTED PRN Sterile Water 0 ml 02/14/25 06:00 Water,Injection,Sterile 10 Ml Vial IJ 02/14/25 23:59 DIRECTED PRN PFSH Active Problems Active Problems: Problem Status Onset Code Yeast vaginitis Acute B37.31 Endometrial cells on cervical Pap smear inconsistent w/LMP Acute R87.619 HPV (human papilloma virus) infection Acute B97.7 Vaginal irritation Acute N89.8 Irregular bowel habits Acute R19.8 Enlarged uterus Acute N85.2 Pelvic pain Acute R10.2 External hemorrhoids with complication Acute K64.4 Family history of secondary colorectal cancer Acute Z80.0 Screening for malignant neoplasm of colon performed Acute Z12.11 Urinary incontinence Acute R32 Insomnia Acute G47.00 Obesity Chronic E66.9 Fatigue Acute 04/04/14 R53.83 Postnasal drip Acute 03/03/17 R09.82 Hair loss Acute 04/04/14 L65.9 Decreased libido Acute 04/04/14 R68.82 Chronic rhinitis Acute 03/03/17 J31.0 BMI 40.0-44.9, adult Acute 12/05/15 Z68.41 Anxiety associated with depression Acute 12/05/15 F41.8 Medical History Medical History Bowel movement symptom Lung nodules Pneumonia Bronchospasm, acute Vitamin D deficiency Pneumonia 05/19/2017 admitted for inpatient antibiotics ?48 hours. Migraine Depression Anxiety Surgical History Surgical History History of colonoscopy (~10/2024) Ligation of fallopian tube (09/16/17) bilateral salpingectomy. section X 2 Tobacco Smoking/Tobacco Use Status: Former Tobacco Use Passive smoking exposure: No Alcohol Alcohol Intake: current Alcohol intake frequency: a few times a month Substance Use Substance use: Rarely Substance use type: marijuana Vital Signs and Lab Results Vital Signs Most Recent Vital Signs in EMR: Most Recent Vital Signs Temp Pulse Resp BP Pulse Ox 36.6 C 64 16 109/67 100 02/14/25 09:21 02/14/25 09:21 02/14/25 09:21 02/14/25 09:21 02/14/25 09:21 Point of Care Results Point of Care Results: POC- Test(urine) Negative 02/14/25 09:40 Lab Results Blood Type / Crossmatch: Antibody Screen NEGATIVE 02/12/25 Complete Blood Count: White Blood Count 8.86 10^3/uL (4.4-10.8) 02/12/25 07:07 Red Blood Count 4.49 10^6/uL (3.93-5.22) 02/12/25 07:07 Hemoglobin 14.0 g/dL (11.2-15.7) 02/12/25 07:07 Hematocrit 40.3 % (36.0-46.0) 02/12/25 07:07 Platelet Count 244 10^3/uL (130-400) 02/12/25 07:07 Complete Metabolic Panel: No Data to Display Liver Function Panel: No Data to Display Coagulation Panel: No Data to Display Cardiac Panel: No Data to Display Arterial Blood Gas: No Data to Display Venous Blood Gas: No Data to Display Pancreas Panel: No Data to Display Thyroid Panel: No Data to Display Infectious Disease: No Data to Display Blood Cultures: No Data to Display Toxicology Panel: No Data to Display Panel: No Data to Display Anesthesia Assessment and Plan Anesthesia History Personal History: No History of Anesthesia Complications Family History: No Family History of Anesthesia Complications Exercise Tolerance Exercise Tolerance: Metabolic Equivalents>4 Pertinent Negatives Pertinent Negatives: No Major Cardiovascular Symptoms or Complaints and No Major Pulmonary Symptoms or Complaints Cardiac & Pulmonary Exam Cardiac Exam: Normal S1/S2 Heart Sounds Pulmonary Exam: Clear Bilateral Breath Sounds Implantable Cardiac Device Does patient have a Pacemaker or an ICD?: No Airway Exam Known Difficult Airway: No Mallampati Class: 2 Mouth Opening: Normal (> 3cm) Thyromental Distance: Greater than 3 cm Neck Range of Motion: Full ROM Neck Circumference: Normal Teeth Condition: Normal Dentition ASA Classification ASA Score: ASA 2 Emergency Case?: No NPO Status NPO Status: NPO Clears >2 hours, Solids >8 hours Status Status: Negative HCG Anesthesia Plan Resuscitation Status: Full Code Anesthesia Technique: General Anesthesia Airway Planned: Natural Airway Monitors Used: Standard Monitors
[2025-02-14 10:21] VITALS: BMI 32.6
--- NOTE | 2025-02-14 10:55 | ENDO_PTH ---
PATIENT: Junie Denny LOC: [facility] U#:[id number] AGE/SX: 44/F ROOM: RE02/14/[address]: Bushra Brooks DO : 1980 BED: DIS: 02/14/2025 SPEC #: [id number] RECD: 02/14/25 13:17 STATUS: RICHELLE REQ #: [id number] JUNIOR: 02/14/25 10:[address]: Bushra Brooks DEPT: Surgical Specimen RECD BY: Christine Pretty ENTERED: 02/14/25 13:18 SP TYPE: Endo OTHR DR: Emperatriz Motley Tissues: 1 - ENDOCERVICAL BX/CURRETTE 2 - ENDOMETRIUM BX/CURRETTE Procedures: GROSS AND MICRO LEVEL 4 Comments: [id number]
[2025-02-14] MEDS: Silver Nitrate Stick 1 EACH (10:59)
--- NOTE | 2025-02-14 11:13 | W.PM.OP ---
Operative Note Operative Note PRE-OP DIAGNOSIS: Endometrial cells on a Pap smear in a woman greater than 40 POST-OP DIAGNOSIS: same PROCEDURE: Hysteroscopy with dilation and curettage SURGEON: Bushra Brooks ANESTHESIA TYPE: MAC Refer to Anesthesia Record ESTIMATED BLOOD LOSS: 5 PATHOLOGY: other (1. Endocervical curettage 2. Endometrial curettage) COMPLICATIONS: None Patient was transported to: same day Indications: Endometrial cells on Pap smear in a woman greater than 40. Insufficient sampling in the office. Findings: Bulky uterus, severely anteverted. Normal-appearing cervix. [place] endometrium. Procedure Description: After full informed consent was obtained, patient was taken the operating suite with an IV running. She then placed in dorsal supine position and anesthesia administered. She had pneumatic compression stockings for DVT prophylaxis. She had no need for antibiotic prophylaxis. A timeout was held. She was placed in the dorsal lithotomy position and prepped and draped in the usual sterile fashion in yellowfin stirrups. Exam under anesthesia revealed a uterus that was midline, mobile, however significantly anteflexed. At this point speculum was inserted in the vaginal vault and single-tooth tenaculum used to grasp the anterior lip of the cervix. Cervical os dilated to the point that hysteroscope could be passed without difficulty. With instillation of normal saline, the endometrial cavity was inspected. The cavity itself was somewhat plush with no evidence of polyp or fibroid. At this point, after completion of the hysteroscope, a fractional dilation and curettage was performed with endocervical curettage, followed by endometrial curettage. As this portion of the procedure was complete, tenaculum was removed. The puncture sites were nonhemostatic which were chemically cauterized with silver nitrate and noted to be hemostatic. The speculum was then removed and the patient was returned to the dorsal supine position. She woke from anesthesia without difficulty. She was taken to the same-day surgical area in stable condition. Complications: None apparent Fluids: Crystalloid per anesthesia EBL: 5 mL Pathology: 1. Endocervix 2. Endometrium Date of Procedure: 02/14/25
[2025-02-14 11:14] VITALS: BP 93/62; PULSE 68; RESP 14; TEMP 36; O2SAT 96
[2025-02-14 11:45] VITALS: BP 99/77; PULSE 58; RESP 18; TEMP 36.3; O2SAT 100
--- NOTE | 2025-02-14 11:56 | W.ANESPOSTOP ---
Postoperative Evaluation Date, Time and Location Date Performed: 02/14/25 Time Performed: 11:35 Patient Location: Day Surgery Unit Vital Signs Most Recent Imported Vital Signs: Most Recent Vital Signs Temp Pulse Resp BP Pulse Ox 36.3 C L 58 L 18 99/77 L 100 02/14/25 11:45 02/14/25 11:45 02/14/25 11:45 02/14/25 11:45 02/14/25 11:45 Pain Score Most Recent Pain Score: Most Recent Pain Score Pain Level 0 02/14/25 11:45 Assessment Mental Status: Arousable with meaningful communication Airway and Respiratory Function: Patent airway with normal (patient baseline) respiratory exam Cardiovascular Function: Hemodynamically Stable Hydration Status: Adequately Hydrated Nausea & Vomiting: No Nausea or Vomiting Pain: Pt. Denies Any Pain Peripheral Nerve Block: Patient did not receive a nerve block
== END 2025-02-14 12:25 | disposition home or self-care (01) ==
PROVIDERS: PCP Family Medicine; Visit Provider Obstetrics & Gynecology
PROC: 0UDB8ZZ Extraction of Endometrium, Via Natural or Artificial Opening Endoscopic (ICD-10-PCS; CPT 58558; principal; 2025-02-14 10:15)
DX: R87.618 Other abnormal cytological findings on specimens from cervix uteri (principal); N85.2 Hypertrophy of uterus
CPT/HCPCS: 58558; 81025; 88305; J1100; J1885; J2003; J2250; J2405; J2704; J3010

== ENCOUNTER 2025-02-16 13:36 | Outpatient (REF) | payer MEDICAID, SELFPAY | END 2025-02-16 13:37 | disposition home or self-care (01) | LOC: LBN 13:36 | PROVIDERS: PCP Family Medicine; Visit Provider Obstetrics & Gynecology | DX: R30.0 Dysuria (principal) | CPT/HCPCS: 87086 ==

== ENCOUNTER 2025-03-01 18:23 | Emergency (ER) | payer MEDICAID, SELFPAY ==
[2025-03-01 18:29] VITALS: BP 133/90; PULSE 72; RESP 20; TEMP 36.8; O2SAT 98
[2025-03-01 19:40] LABS: Bilirubin Negative (Negative); Blood Moderate (Negative); Clarity Clear (Clear); Glucose Negative (Negative); Ketones Negative (Negative); Leukocyte Esterase Negative (Negative); Nitrite Positive (Negative); Specific Gravity <= 1.005 (1.005-1.025); Urobilinogen 0.2 mg/dL (Up to 0.2); pH 5.5 (5-8)
[2025-03-01 19:48] LABS: Bacteria Moderate HPF (Negative); C & S Indicated? No; Casts Negative LPF (Negative); Crystals Negative HPF (Negative); Epithelial Cells Moderate HPF (Negative); Mucus Negative (Negative); RBC 0-2 HPF (0-2); WBC 0-2 HPF (0-5)
[2025-03-01 20:18] LABS: Abs Immature Grans 0.02 10^3/uL (0.0-0.06); Absolute Basophil Count 0.07 10^3/uL (0.0-0.2); Absolute Eosinophil Count 0.14 10^3/uL (0.0-0.7); Absolute Lymphocyte Count 3.03 10^3/uL (1.2-3.4); Absolute Monocyte Count 0.51 10^3/uL (0.1-0.8); Basophils % 0.8 %; Eosinophils % 1.6 %; HCT 38.9 % (36.0-46.0); HGB 13.4 g/dL (11.2-15.7); Immature Grans % 0.2 %; Lymphocytes % 33.8 %; MCH 30.9 pg (27.0-33.0); MCHC 34.4 % (32.0-36.0); MCV 90 fL (80-95); MPV 10.1 fL (8.0-11.0); Monocytes % 5.7 %; Neutrophils % 57.9 %; Platelet Count 257 10^3/uL (130-400); RBC 4.33 10^6/uL (3.93-5.22); RDW 12.2 % (11.7-14.6); RDW-SD 39.8 fL; WBC 8.97 10^3/uL (4.4-10.8)
[2025-03-01] MEDS: Omnipaque 350 MG/ML 100 ML BTL 75 ML IJ (20:27)
[2025-03-01] MEDS: Normal Saline - Diluent 50 ML VIAL IJ (20:28)
--- NOTE | 2025-03-01 20:30 | DI.CT_ITS ---
Exam(s) CT ABDOMEN PELVIS W EXAM: CT ABDOMEN PELVIS W CLINICAL HISTORY: hematuria/dysuria and pelvic pain, recent uterosco. TECHNIQUE: Imaging Protocol: Axial computed tomography images with coronal and sagittal reformatted images were created and reviewed CONTRAST MATERIAL: Intravenous: Omnipaque-350 75cc Oral: None COMPARISON: CT CT renal colic wo from 05/25/2019 FINDINGS: VISUALIZED LUNG BASES: No nodules nor pleural effusions evident. ABDOMEN: There is no ascites. LIVER: There are no focal hepatic lesions evident. No dilated intrahepatic ducts. GALLBLADDER/BILIARY: No obvious gallbladder pathology. CBD is not dilated. PANCREAS: No evidence of pancreatic mass nor dilatation of the pancreatic duct. SPLEEN: Spleen is not enlarged. No obvious intrasplenic lesions. Splenic and portal veins are paten t. ADRENALS: There are no significant adrenal masses. KIDNEYS:Tiny benign cortical cysts which require no follow-up. No solid renal masses. No calculi no r hydronephrosis.. ABDOMINAL AORTA: Abdominal aorta is not enlarged. LYMPH NODES:There is no retroperitoneal nor paraaortic adenopathy. ABDOMINAL WALL: No evidence of significant anterior abdominal wall nor inguinal hernia. GI: There is no evidence of bowel obstruction, free air, nor abscess. Moderate increased amount of fecal material throughout the colon but no significant distention of the colon. PELVIS: GI: No evidence of appendicitis.No evidence of sigmoid diverticulitis. LYMPH NODES: There is no intrapelvic nor inguinal adenopathy. REPRODUCTIVE: Uterus size upper normal. No abnormal adnexal masses and no free fluid in the pelvis URINARY BLADDER: No calculi nor obvious masses evident OSSEOUS: No fractures and no significant osseous lesions. IMPRESSION: 1. No significant findings on CT scan of the abdomen pelvis RADIATION DOSE DELIVERED: 599.47mGy.cm Total DLP DATA REPOSITORY: All CT scans at this facility are submitted to the National Radiology Data Registry (NRDR) Dose Index Registry (DIR) with the [employer] (ACR). RADIATION OPTIMIZATION: All CT scans at this facility use at least one of these dose optimization te chniques: automated exposure control; mA and/or kV adjustment per patient size (includes targeted exa ms where dose is matched to clinical indication); or iterative reconstruction.
[2025-03-01 20:33] LABS: ALT 26 U/L (14-59); AST 14 U/L (15-37); Alkaline Phosphatase 66 U/L (46-116); Anion Gap 9.8 mmol/L (3-11); BUN 15 mg/dL (7-18); Bilirubin, Total 0.6 mg/dL (0.2-1.0); CO2 25.2 mmol/L (21.0-32.0); Calcium 9.2 mg/dL (8.5-10.1); Chloride 108 mmol/L (98-107); Glucose 107 mg/dL (74-106); Lipase 70 U/L (<78); Magnesium 1.9 mg/dL (1.8-2.4); Potassium 3.6 mmol/L (3.5-5.1); Sodium 143 mmol/L (136-145); Total Protein 7.1 g/dL (6.4-8.2)
--- NOTE | 2025-03-01 20:49 | ED.GENADUL_ITS ---
Discharge Plan Disposition Patient Disposition: Home Condition: Stable Discharge Details Clinical Impression: UTI (urinary tract infection) Primary Care Provider: Emperatriz Motley ED Provider: Kyung Fulton Home Meds and New Rx's Prescriptions: New nitrofurantoin monohyd/m-cryst [Macrobid] 100 mg capsule 100 mg PO Q12H 4 Days Qty: 8 0RF Rx Instructions: must administer with a meal/food fluconazole 150 mg tablet 150 mg PO ONCE Qty: 1 0RF Rx Instructions: as a single dose No Action nystatin-triamcinolone 100,000-0.1 unit/g-% cream 1 applic topical BID Qty: 30 1RF Rx Instructions: Apply a pea-sized amount to the vulva twice daily fluconazole 150 mg tablet 150 mg PO Q3D Qty: 2 0RF acetylcysteine [NAC] 600 mg capsule 1,200 mg PO BID acetaminophen [Mapap Extra Strength] 500 MG tablet 1,000 mg PO Q8H PRN PRNQty: 0 0RF ibuprofen 600 mg Tablet 600 mg PO Q6H PRN topiramate 50 mg tablet 50 mg PO DAILY Patient Comments: TAKE ONE TABLET BY MOUTH EVERY DAY Discharge Instructions Instructions: Urinary Tract Infection, Adult ED Additional Instructions: You were seen in the emergency department today for evaluation of dysuria and pelvic pain. In our department you had a full physical examination performed, had reassuring laboratory studies, though your urinalysis showed some bacteria, blood, and nitrites. The sample was unfortunately contaminated, but with your symptoms and the nitrates it is reasonable to trial a course of antibiotics. I have provided you with a prescription for Macrobid, as well as 1 days worth to take home from the ED. In total, you should have 5 days worth of medications and you should take all of it until it is gone, even if you start to feel better. Your CT scan did not show any abnormalities to account for your symptoms, and you need to keep your primary care appointment scheduled for tomorrow for reevaluation. Thank you for allowing us to be part of your care. HPI General Mode of arrival: ambulatory . Date/Time Provider Initiated Documentation: 03/01/25 18:32 . Limitations to Documentation: no limitations . Information obtained by: patient and old records reviewed . HPI Narrative: This is a 44-year-old female patient with a past medical history significant for frequent UTIs, yeast infections, chronic constipation, and a recent uteroscopy for endometrial cells on cervical Pap smear, presenting for evaluation of dysuria and hematuria, as well as pelvic pain. The patient has had the symptoms for approximately 1 week, states that she has been taking Azo at home without significant improvement. She has noted speckles of blood in her urine, and has bilateral lower abdominal/pelvic pain. She just finished her menses and has not had any abnormal vaginal discharge. She has not had fever or chills, flank pain, and has been eating and drinking typically for her. She avoids [id number]-[id number] pain medications due to their effects on her constipation. Related Data Home Medications ?Medication ?Instructions ?Recorded ?Confirmed acetaminophen 500 mg tablet (Mapap 1,000 mg (2 x 500 mg) PO Q8H PRN 05/11/17 03/01/25 Extra Strength) PRN ##0 ibuprofen 600 mg tablet 600 mg PO Q6H PRN 05/25/19 03/01/25 acetylcysteine 600 mg capsule (NAC) 1,200 mg PO BID 09/13/24 03/01/25 topiramate 50 mg tablet 50 mg PO DAILY 10/17/24 03/01/25 nystatin-triamcinolone 100,000 1 applic topical BID #30 grams 01/19/25 03/01/25 unit/g-0.1 % topical cream fluconazole 150 mg tablet 150 mg PO Q3D 2 doses #2 tabs 02/16/25 03/01/25 fluconazole 150 mg tablet 150 mg PO ONCE #1 tab 03/01/25 nitrofurantoin 100 mg PO Q12H 4 days #8 caps 03/01/25 monohydrate/macrocrystals 100 mg capsule (Macrobid) Previous Rx's ?Medication ?Instructions ?Recorded acetaminophen 500 mg tablet (Mapap 1,000 mg (2 x 500 mg) PO Q8H PRN 05/11/17 Extra Strength) PRN ##0 nystatin-triamcinolone 100,000 1 applic topical BID #30 grams 01/19/25 unit/g-0.1 % topical cream fluconazole 150 mg tablet 150 mg PO Q3D 2 doses #2 tabs 02/16/25 fluconazole 150 mg tablet 150 mg PO ONCE #1 tab 03/01/25 nitrofurantoin 100 mg PO Q12H 4 days #8 caps 03/01/25 monohydrate/macrocrystals 100 mg capsule (Macrobid) Allergies Allergy/AdvReac Type Severity Reaction Status Date / Time Sulfa (Sulfonamide Allergy Intermediate RASH Verified 03/01/25 18:31 Antibiotics) General Stated Complaint: Urinary JOSE: 3 Exam Narrative Exam Narrative: Gen: Awake and alert, in no apparent distress HEENT: Non-icteric sclera Neck: Supple Lungs: No apparent respiratory distress, normal respiratory effort. CV: Appears well perfused, strong distal pulses Abdomen: Non-distended, soft, tender to palpation in the bilateral lower abdomen/pelvic regions without rigidity, rebound, or guarding. No overlying skin changes MSK: Moves 4 extremities without apparent limitation in ROM, no CVA tenderness Skin: Visualized skin without rashes, cyanosis. Neuro: Normal Gait, no obvious focal deficits or facial asymmetry. Speaks in full, clear sentences. Psych: Appropriate for situation. Course Vital Signs Vital signs: Vital Signs Temperature 36.8 C 03/01/25 18: Pulse 72 03/01/25 18:29 Respiratory Rate 20 03/01/25 18:29 Blood Pressure 133/90 03/01/25 18:29 Pulse Oximetry 98 03/01/25 18:29 Temperature 36.8 C 03/01/25 18:29 Pulse 72 03/01/25 18:29 Respiratory Rate 20 03/01/25 18:29 Blood Pressure 133/90 03/01/25 18:29 Blood Pressure Position Sitting 03/01/25 18:29 Pulse Oximetry 98 03/01/25 18:29 Oxygen Delivery Method Room Air 03/01/25 18:29 Oxygen Flow Rate 0 03/01/25 18:29 Pain Level 10 03/01/25 19:43 Lab/Test Results Lab/Test Results: Laboratory Tests Range/Units 03/01/25 03/01/25 19:21 20:08 WBC (4.4-10.8) 10^3/uL 8.97 RBC (3.93-5.22) 10^6/uL 4.33 Hgb (11.2-15.7) g/dL 13.4 Hct (36.0-46.0) % 38.9 MCV (80-95) fL 90 MCH (27.0-33.0) pg 30.9 MCHC (32.0-36.0) % 34.4 RDW (11.7-14.6) % 12.2 Plt Count (130-400) 10^3/uL 257 MPV (8.0-11.0) fL 10.1 Immature Gran % % 0.2 Neutrophils % % 57.9 Lymphocytes % % 33.8 Monocytes % % 5.7 Eosinophils % % 1.6 Basophils % % 0.8 Nucleated RBC % (0.0-0.3) % 0.0 Absolute Neutrophils (1.2-6.7) 10^3/uL 5.20 Absolute Lymphocytes (1.2-3.4) 10^3/uL 3.03 Absolute Monocytes (0.1-0.8) 10^3/uL 0.51 Absolute Eosinophils (0.0-0.7) 10^3/uL 0.14 Absolute Basophils (0.0-0.2) 10^3/uL 0.07 Sodium (136-145) mmol/L 143 Potassium (3.5-5.1) mmol/L 3.6 Chloride (98-107) mmol/L 108 H Carbon Dioxide (21.0-32.0) mmol/L 25.2 Anion Gap (3-11) mmol/L 9.8 BUN (7-18) mg/dL 15 Creatinine (0.55-1.02) mg/dL 1.0 Est GFR (CKD-EPI 2020) (mL/min/1.73m2) 70.80 Glucose (74-106) mg/dL 107 H Calcium (8.5-10.1) mg/dL 9.2 Magnesium (1.8-2.4) mg/dL 1.9 Total Bilirubin (0.2-1.0) mg/dL 0.6 AST (15-37) U/L 14 L ALT (14-59) U/L 26 Alkaline Phosphatase (46-116) U/L 66 Total Protein (6.4-8.2) g/dL 7.1 Albumin (3.4-5.0) g/dL 4.0 Lipase (<78) U/L 70 Urine Color (Yellow) Yellow Urine Clarity (Clear) Clear Urine pH (5-8) 5.5 Ur Specific [place] (1.005-1.025) <= 1.005 Urine Protein (Neg-Trace) mg/dL Negative Urine Ketones (Negative) mg/dL Negative Urine Blood (Negative) Moderate H Urine Nitrite (Negative) Positive H Urine Bilirubin (Negative) Negative Urine Urobilinogen (Up to 0.2) mg/dL 0.2 Ur Leukocyte Esterase (Negative) Negative Urine RBC (0-2) HPF 0-2 Urine WBC (0-5) HPF 0-2 Ur Epithelial Cells (Negative) HPF Moderate Urine Crystals (Negative) HPF Negative Urine Bacteria (Negative) HPF Moderate Urine Casts (Negative) LPF Negative Urine Mucus (Negative) Negative Ur Culture Indicated? No Urine Glucose (Negative) mg/dL Negative POC- Test(urine) Negative Medical Decision Making This is a 44-year-old female patient presenting for evaluation of dysuria and pelvic pain. Differential includes but is not limited to urinary tract infection, interstitial cystitis, nephrolithiasis, pyelonephritis, no vaginal discharge but I did consider pelvic inflammatory disease and TOA, vaginitis and vaginosis. Considered early , ectopic , appendicitis, diverticulitis, constipation. I had a discussion with the patient regarding next steps, and we will obtain a urinalysis and [id number] urine test, as well as laboratory studies to include CBC, CMP, magnesium, lipase, and a CT abdomen pelvis with contrast. I will hold on initiation of any medications given her intolerance to [id number] pain meds and desire to avoid constipation. -I independently interpreted the laboratory studies, which show no significant leukocytosis, anemia, or thrombocytopenia. The chemistry panel is without evidence of electrolyte abnormality, kidney dysfunction, or liver injury. Lipase is low. CT abdomen pelvis reviewed by myself, showing no acute abnormality to explain her symptoms. Urinary test was negative, urinalysis is contaminated, but has moderate blood, and is positive for nitrates with moderate bacteria. As nitrate producing bacteria could be considered specific for pathogenic bacteria, and given the patient's symptoms I do not think it is unreasonable to trial a course of antibiosis. She did recently complete a course of Keflex and so Macrobid will be provided, as well as a tablet of fluconazole given her frequent yeast infections. The patient has follow-up with her primary care provider tomorrow and will keep that appointment for reassessment. At this time, the patient has had a full medical evaluation and is safe for discharge to home. They are hemodynamically stable, ambulatory, and tolerating PO. They are understanding of the follow-up plan and return precautions. They left our facility without incident. Kyung Fulton MD Quality:SDOH Health Related Social Needs: No Data to Display PFSH All Active Problems (Updated 03/01/25 @ 21:03 by Kyung Fulton MD) UTI (urinary tract infection) (Acute) Dysuria (Acute) Status post dilation and curettage (Acute) Urinary tract infection (Acute) Postoperative pain (Acute) Yeast vaginitis (Acute) Endometrial cells on cervical Pap smear inconsistent w/LMP (Acute) Pap smear with endometrial cells on a woman greater than 45, and positive high risk HPV. Will have endometrial biopsy, and colposcopy with next visit HPV (human papilloma virus) infection (Acute) Vaginal irritation (Acute) Irregular bowel habits (Acute) Enlarged uterus (Acute) Pelvic pain (Acute) External hemorrhoids with complication (Acute) Family history of secondary colorectal cancer (Acute) Four second-degree family members with colon cancer Repeat colonoscopy in 2029 Screening for malignant neoplasm of colon performed (Acute) Urinary incontinence (Acute) Insomnia (Acute) Obesity (Chronic) Fatigue (Acute 04/04/14) Postnasal drip (Acute 03/03/17) Hair loss (Acute 04/04/14) Decreased libido (Acute 04/04/14) Chronic rhinitis (Acute 03/03/17) BMI 40.0-44.9, adult (Acute 12/05/15) Anxiety associated with depression (Acute 12/05/15) Medical History Bowel movement symptom Lung nodules Pneumonia Bronchospasm, acute Vitamin D deficiency Pneumonia 05/19/2017 admitted for inpatient antibiotics ?48 hours. Migraine Depression Anxiety Surgical History History of colonoscopy (~10/2024) Ligation of fallopian tube (09/16/17) bilateral salpingectomy. section X 2 Social History Smoking/Tobacco Use Status: Former Tobacco Use Quit Date: 10/04/01 Smoking risk assessment performed?: Yes Alcohol Intake: current Alcohol Intake frequency: a few times a month Drug use: Rarely Substance use type: marijuana Housing: apartment Do you feel safe at home: Yes Do you feel safe in your relationship?: Yes PAWSS Have you Been Recently Intoxicated or Drunk Within the Last 30 days?: No Have you Ever Experienced Previous Episodes of Alcohol Withdrawal?: No Have you ever Experienced Withdrawal Seizures?: No Have you ever Experienced Delirium Tremens(DT)s?: No Have you ever undergone Alcohol Rehabilitation Treatment (i.e, inpt ot outpatient treatment programs)?: No Have you ever Experienced Blackouts?: No Have you ever Combined Alcohol with other Downers within the last 90 days?: No Have you ever Combined Alcohol with any other Substance of Abuse during the last 90 days?: No Positive Blood Alcohol level on Presentation? [PCS.BAL]: No Result: 0
[2025-03-01 20:51] VITALS: BP 95/54; PULSE 69; RESP 18; O2SAT 97
--- NOTE | 2025-03-01 20:54 | DI.VRAD_ITS ---
PROCEDURE INFORMATION: Exam: CT Abdomen And Pelvis With Contrast Exam date and time: 03/01/2025 8:18 PM Age: 44 years old Clinical indication: Hematuria/dysuria and pelvic pain, recent uterosco TECHNIQUE: Imaging protocol: Computed tomography of the abdomen and pelvis with contrast. Radiation optimization: All CT scans at this facility use at least one of these dose optimization techniques: automated exposure control; mA and/or kV adjustment per patient size (includes targeted exams where dose is matched to clinical indication); or iterative reconstruction. Contrast material: [id number]; Contrast volume: 75 ml; Contrast route: INTRAVENOUS (IV); COMPARISON: CT renal colic wo 05/25/2019 11:31 PM FINDINGS: Liver: Normal. No mass. Gallbladder and biliary ducts: Normal. No calcified stones. No ductal dilation. Pancreas: Normal. No ductal dilation. Spleen: Normal. No splenomegaly. Adrenal glands: Normal. No mass. Kidneys and ureters: Normal. No hydronephrosis. Stomach and bowel: Mild constipation. Appendix: No evidence of appendicitis. Intraperitoneal space: Unremarkable. No free air. No significant fluid collection. Vasculature: Unremarkable. No abdominal aortic aneurysm. Lymph nodes: Unremarkable. No enlarged lymph nodes. Urinary bladder: Unremarkable as visualized. Reproductive: Unremarkable as visualized. Bones/joints: Unremarkable. No acute fracture. Soft tissues: Unremarkable. IMPRESSION: 1. Mild constipation. 2. Otherwise unremarkable CT scan of abdomen and pelvis. Dictated and Authenticated by: Yuri Solano MD. Orderin [facility] Tracey MD
[2025-03-01] MEDS: MacroBID 100 MG CAP, 2 CAPS/BTL PO (21:12)
[2025-03-01 21:24] VITALS: BP 107/68; PULSE 60; RESP 18; O2SAT 96
== END 2025-03-01 21:26 | disposition home or self-care (01) ==
PROVIDERS: Emergency Provider Emergency Medicine; PCP Family Medicine
DX: R10.2 Pelvic and perineal pain (principal); N39.0 Urinary tract infection, site not specified; Z87.891 Personal history of nicotine dependence
CPT/HCPCS: 80053; 81025; 83690; 87077; 99285; 74177; 81003; 81015; 83735; 85025; 87086; 87186; 99284; J3490

== ENCOUNTER 2025-03-02 14:40 | Outpatient (REF) | payer MEDICAID, SELFPAY ==
[2025-03-02 22:11] LABS: Hemoglobin A1C 5.2 % (<5.7); Iron 68 ug/dL (50-170); Total Iron Binding Capacity 329 ug/dL (250-450)
[2025-03-02 22:32] LABS: Calculated LDL 108 mg/dL (<100); Cholesterol 172 mg/dL (<200); Ferritin 84 ng/mL (8-252); HDL Cholesterol 50 mg/dL (>or=50); TSH (W/Ref FT4) 1.46 uIU/mL (0.36-3.74); Triglyceride 71 mg/dL (<150); Vitamin D 25 Total 81 ng/mL (30-100)
== END 2025-03-02 14:41 | disposition home or self-care (01) ==
LOC: NCHCN 14:40
PROVIDERS: PCP Family Medicine; Visit Provider Nurse Practitioner Family
DX: E55.9 Vitamin D deficiency, unspecified (principal); E78.00 Pure hypercholesterolemia, unspecified; N92.0 Excessive and frequent menstruation with regular cycle; Z13.1 Encounter for screening for diabetes mellitus
CPT/HCPCS: 80061; 82306; 82728; 83036; 83540; 83550; 84443

== ENCOUNTER 2025-03-06 13:36 | Outpatient (REF) | payer MEDICAID, SELFPAY | END 2025-03-06 13:37 | disposition home or self-care (01) | LOC: LBN 13:36 | PROVIDERS: PCP Family Medicine; Visit Provider Obstetrics & Gynecology | DX: N94.9 Unspecified condition associated with female genital organs and menstrual cycle (principal) | CPT/HCPCS: 87480; 87510; 87660 ==

== ENCOUNTER 2025-03-26 02:07 | Outpatient (CLI) | payer MEDICAID, SELFPAY ==
--- NOTE | 2025-03-26 | DI.CT_ITS ---
Exam(s) CT CHEST WO EXAM: CT CHEST WO CLINICAL HISTORY: ABNL lung field R91.8 abnl finding, not high risk/non smoker. TECHNIQUE: Imaging protocol: Axial computed tomography images were obtained and coronal and sagittal reformatted images were created and reviewed. Lung Computer Aided Detection (CAD) was utilized. COMPARISON: CT CT CHEST WO from 08/16/2023 FINDINGS: Tracheobronchial tree: Patent where visualized. No bronchiectasis is present. Pulmonary parenchyma: No consolidation or dominant measurable mass. No architectural distortion. There are no new pulmonary nodules. The 2 largest nodules are again seen in the right middle lobe. There are stable in size. Mediastinum and Kimberly: No dominant adenopathy or fluid collection. The esophagus is unremarkable. Thyroid gland: Unremarkable. Pleura: No effusion or pneumothorax. Heart: The heart is not dilated. No coronary artery calcifications are seen. No pericardial effusion. Aorta: Thoracic aorta non-dilated. Upper abdomen: Unremarkable. Lymph nodes: Within normal limits. Soft tissues: Unremarkable. Bones:Within normal limits for the patient's age. IMPRESSION: 1. Stable pulmonary nodules. 2. No new pulmonary nodules. 3. No acute pulmonary process. RADIATION DOSE DELIVERED: 204.78mGy.cm Total DLP 204.78mGy.cm Total DLP DATA REPOSITORY: All CT scans at this facility are submitted to the National Radiology Data Registry (NRDR) Dose Index Registry (DIR) with the [employer] (ACR). RADIATION OPTIMIZATION: All CT scans at this facility use at least one of these dose optimization techniques: automated exposure control; mA and/or kV adjustment per patient size (includes targeted exams where dose is matched to clinical indication); or iterative reconstruction.
== END 2025-03-26 02:27 ==
LOC: DI 02:07
PROVIDERS: PCP Family Medicine; Visit Provider Nurse Practitioner Family
DX: R91.8 Other nonspecific abnormal finding of lung field (principal)
CPT/HCPCS: 71250

== ENCOUNTER 2025-04-05 21:33 | Outpatient (REF) | payer MEDICAID, SELFPAY ==
[2025-04-05 21:17] LABS: RBC Negative HPF (0-2); WBC Negative HPF (0-5)
== END 2025-04-05 21:34 | disposition home or self-care (01) ==
LOC: LBN 21:33
PROVIDERS: PCP Family Medicine; Visit Provider Physician Assistant Medical
DX: R30.0 Dysuria (principal)
CPT/HCPCS: 81015; 87086; 87480; 87510; 87660

== ENCOUNTER 2025-05-28 15:50 | Outpatient (CLI) | payer MEDICAID, SELFPAY ==
[2025-05-28 16:46] LABS: TSH (W/Ref FT4) 1.77 uIU/mL (0.36-3.74)
[2025-05-28 22:56] LABS: FSH 5.5 mIU/mL (See Note)
== END 2025-05-28 15:51 | disposition home or self-care (01) ==
LOC: LBO 15:50
PROVIDERS: PCP Nurse Practitioner Family; Visit Provider Obstetrics & Gynecology
DX: R68.82 Decreased libido (principal)
CPT/HCPCS: 36415; 82670; 83001; 84443

== ENCOUNTER 2025-08-10 21:05 | Outpatient (REF) | payer MEDICAID, SELFPAY ==
[2025-08-12 13:02] LABS: HSV 1 DNA Result Negative (Negative); HSV 2 DNA Result Negative (Negative)
[2025-08-13 11:56] LABS: Chlamydia Result Negative (Negative); GC Result Negative (Negative)
== END 2025-08-10 21:06 | disposition home or self-care (01) ==
LOC: LBN 21:05
PROVIDERS: PCP Nurse Practitioner Family; Visit Provider Physician Assistant Medical
DX: N89.8 Other specified noninflammatory disorders of vagina (principal)
CPT/HCPCS: 87491; 87529; 87591; 87480; 87510; 87660